=== PATIENT | female | born 1955 | race Caucasian/White ===

== ENCOUNTER 2019-11-23 05:03 | Observation (INO) ==
--- NOTE | 2019-10-26 10:28 | PAT Medication Instructions ---
Medication Instructions Date of Service October 26, 2019 Home Medications amitriptyline 20 mg PO HS aspirin 81 mg PO QAM atorvastatin 80 mg PO PM calcium-vitamin D3-vitamin K [Viactiv] 2 tab PO DAILY cholecalciferol (vitamin D3) 25 mcg PO DAILY cyanocobalamin (vitamin B-12) 2,500 mcg PO DAILY cyclobenzaprine 10 mg PO TID PRN duloxetine [Cymbalta] 60 mg PO HS iron 28 mg PO DAILY meloxicam 7.5 mg PO DAILY methadone 10 mg PO TID multivitamin 1 tab PO DAILY omega 0-vha-jkz-fish oil [Fish Oil] 1 cap PO DAILY sumatriptan succinate 100 mg PO UD PRN tramadol 50 mg PO TID PRN ASK your surgeon for instructions meloxicam 7.5 mg PO DAILY STOP taking 2 weeks before surgery omega 9-itg-bhg-fish oil [Fish Oil] 1 cap PO DAILY DO NOT take the morning of surgery calcium-vitamin D3-vitamin K [Viactiv] 2 tab PO DAILY cholecalciferol (vitamin D3) 25 mcg PO DAILY cyanocobalamin (vitamin B-12) 2,500 mcg PO DAILY cyclobenzaprine 10 mg PO TID PRN iron 28 mg PO DAILY multivitamin 1 tab PO DAILY Take morning of surgery With a small sip of water, OTHERWISE NOTHING TO EAT OR DRINK AFTER MIDNIGHT: aspirin 81 mg PO QAM methadone 10 mg PO TID sumatriptan succinate 100 mg PO UD PRN (if needed) tramadol 50 mg PO TID PRN (if needed, may be taken up to four hours before surgery) Take evening before surgery amitriptyline 20 mg PO HS atorvastatin 80 mg PO PM cyclobenzaprine 10 mg PO TID PRN (if needed) duloxetine [Cymbalta] 60 mg PO HS methadone 10 mg PO TID sumatriptan succinate 100 mg PO UD PRN (if needed) tramadol 50 mg PO TID PRN (if needed) Other Notes If you have any questions please call us at [phone] or [phone] or [phone] or [phone]
--- NOTE | 2019-10-27 16:11 | Anesthesiology Consultation ---
Date of Service October 27, 2019 Assessment & Plan (1) Encounter for pre-operative examination: CBC AM DOS. Pt has h/o thrombocytopenia. COVID Status: As of 10/24 nurse assessment, patient denies travel to endemic area, known exposure/sick contacts, or symptoms of COVID19. Preoperative COVID19 testing completed to be completed prior to surgery. Chart Review Chart Review: Acceptable Risk for Surgery (pending surgeon-ordered PCP clearance) and Patient seen in Pre Admission Testing Teaching & Discussion Instructed NPO after midnight before surgery, except medications with 15 cc of water. Medication instructions provided according to the PAT guidelines. History Surgery Operation Date: 11/23/19 07:00 Proposed Procedures p Left Total Knee Arthroplasty - Lew Helms MD Height/Weight Height: 5 ft 5 in Weight: 96 kg Allergies Allergy/AdvReac Type Severity Reaction Status Date / Time latex AdvReac Mild REDNESS Verified 04/28/11 21:16 AND MILD ITCHING Medications Home Medications Medication Instructions Recorded Confirmed Last Taken amitriptyline 20 mg PO HS 10/25/19 10/25/19 Unknown aspirin 81 mg PO QAM 10/25/19 10/25/19 Unknown atorvastatin 80 mg PO PM 10/25/19 10/25/19 Unknown calcium-vitamin D3-vitamin K 2 tab PO DAILY 10/25/19 10/25/19 Unknown [Viactiv] cholecalciferol (vitamin D3) 25 mcg PO DAILY 10/25/19 10/25/19 Unknown [Vitamin D3] cyanocobalamin (vitamin B-12) 2,500 mcg PO DAILY 10/25/19 10/25/19 Unknown cyclobenzaprine 10 mg PO TID PRN 10/25/19 10/25/19 Unknown duloxetine [Cymbalta] 60 mg PO HS 10/25/19 10/25/19 Unknown iron 28 mg PO DAILY 10/25/19 10/25/19 Unknown meloxicam 7.5 mg PO DAILY 10/25/19 10/25/19 Unknown methadone 10 mg PO TID 10/25/19 10/25/19 Unknown multivitamin 1 tab PO DAILY 10/25/19 10/25/19 Unknown omega 1-sus-wtt-fish oil [Fish Oil] 1 cap PO DAILY 10/25/19 10/25/19 Unknown sumatriptan succinate 100 mg PO UD PRN 10/25/19 10/25/19 Unknown tramadol 50 mg PO TID PRN 10/25/19 10/25/19 Unknown Past Medical History Medical History (Updated 10/28/19 @ 08:49 by Margarito Andrade) Anemia Chronic, per review of [facility] records baseline ~10.8 Anxiety MILD Cardiac murmur Remote h/o echo, was told not of concern. Very soft I/ systolic on exam, asymptomatic. Chronic back pain Depression Leukopenia Per review of [facility] records, chronic issue dating back to 1996, has been in the 2's since 2010. Migraine Exercise / Class Metabolic Activity II 4-5 Yardwork/Stairs/Walk up hill (SOB with 2 flights of stairs, OK with 1. Denies any chest pain.) Past Surgical History Surgical History Fusion of spine LUMBAR History of ankle surgery RIGHT History of cataract surgery RIGHT History of section X2 History of cholecystectomy History of colonoscopy History of tooth extraction ALL OF TEETH REMOVED History of total hip arthroplasty RIGHT/LEFT Hx of gastric bypass ABOUT 12 YEARS AGO Past Anesthesia History No Hx of Anesthesia Complications and No Family Hx of Anesthesia Complications History of PONV No Hx of PONV and No Hx of Motion Sickness Social History Smoking Status: Former smoker Do You Dip or Chew Tobacco: No Smoking End Date: 1981 Hx Alcohol Use: Yes Alcohol type: wine alcohol intake frequency: holidays/special occasions only Hx Substance Use: No Review of Systems Pt denies any recent chest pain, shortness of breath, palpitations, cough, fever or URI. Physical Exam Vital Signs BP: 122/83 P: 75bpm SPO2: 98% RA T: 98.5 F R: 16 Constitutional + obese ENMT Mouth: + dentures and + edentulous Thyromental Distance: > or= 3.5 Finger Breadths (4) Mallampati Class: II Neck normal visual inspection; neck extension not limited Respiratory normal respiratory effort Auscultation: lungs clear to auscultation bilaterally Cardiovascular Rate/Rhythm: regular rate and regular rhythm Heart Sounds: + murmur (I/ systolic murmur RSB) Extremities: no edema Testing Laboratory Results 10/27/19 16:20 10/27/19 16:20 PT 10.5 Seconds (9.0-12.0) 10/27/19 16:20 INR 1.0 (0.9-1.1) 10/27/19 16:20 APTT 26.4 Seconds (21.0-31.0) 10/27/19 16:20 Urine Color Dark Yellow 10/27/19 Unknown Urine Appearance Clear (Clear) 10/27/19 Unknown Urine pH 5.0 (4.5-7.5) 10/27/19 Unknown Ur Specific [place] 1.024 (1.000-1.030) 10/27/19 Unknown Urine Protein Negative (Negative) 10/27/19 Unknown Urine Glucose (UA) Negative (Negative) 10/27/19 Unknown Urine Ketones Trace (Negative) H 10/27/19 Unknown Urine Nitrite Negative (Negative) 10/27/19 Unknown Ur Leukocyte Esterase 1+ (Negative) H 10/27/19 Unknown Urine WBC (Auto) 10-30 /hpf (0-5) H 10/27/19 Unknown Urine RBC (Auto) 10-30 /hpf (0-4) H 10/27/19 Unknown U Hyaline Cast (Auto) 1-5 /lpf (0-5) 10/27/19 Unknown U Epithel Cells (Auto) 0-5 /lpf (0-5) 10/27/19 Unknown Urine Bacteria (Auto) 2+ (Negative) H 10/27/19 Unknown Blood Type A Positive 10/27/19 16:20 Antibody Screen NEGATIVE 10/27/19 16:20 *Pancytopenia chronic, stable per review of [facility] records. Surgeon's office notified of low values, and of + UA. Electrocardiogram Date: 10/27/19 Findings: + NSR @ (76bpm) Compared to EKG from 2010, NSTWA no longer evident in anterior leads. Chest X-Ray Date: 10/27/19 FINDINGS: The bones soft tissues and hemidiaphragms are normal. The cardiomediastinal silhouette is normal. The lungs are clear. The pulmonary vasculature is normal. Calcified granuloma right midlung considered benign. Diaphragms are smooth. IMPRESSION: Chronic change. No acute process.
[2019-10-27 16:53] LABS: Appearance Urine Clear (Clear); Bacteria Urine Automated 2+ (Negative); Bilirubin Urine Negative (Negative); Blood Urine 1+ (Negative); Color Urine Dark Yellow; Epithelial Cell Urine Auto 0-5 /lpf (0-5); Glucose Urine UA Negative (Negative); Ketones Urine Trace (Negative); Leukocyte Esterase Urine 1+ (Negative); Nitrite Urine Negative (Negative); Protein Urine Negative (Negative); Specific Gravity Urine 1.024 (1.000-1.030); Urobilinogen Urine Negative (Negative)
[2019-10-27 16:53] LABS: Basophils # (auto) 0.01 K/uL (0-0.2); Basophils % (auto) 0.4 %; Eosinophils % (auto) 3.9 %; Hematocrit (blood only) 34.9 % (37-47); Hemoglobin 10.9 g/dL (12.0-16.0); Lymphocytes # (auto) 0.91 K/uL (1.2-3.4); Lymphocytes % (auto) 35.1 %; Mean Corpuscular Hemoglobin 28.2 pg (25-34); Mean Corpuscular Hgb Conc 31.2 g/dL (32-36); Mean Corpuscular Volume 90.4 fL (80-100); Mean Platelet Volume 11.9 fL (7.4-10.4); Monocytes # (auto) 0.17 K/uL (0.11-0.59); Monocytes % (auto) 6.6 %; Platelet Count 129 K/uL (130-400); RDW Standard Deviation 42.8 fL (36.4-46.3); Red Blood Count 3.86 M/uL (4.2-5.4); White Blood Count 2.59 K/uL (4.8-10.8)
[2019-10-27 17:05] LABS: Partial Thromboplastin Ratio 0.9; Partial Thromboplastin Time 26.4 Seconds (21.0-31.0); Prothrombin Time 10.5 Seconds (9.0-12.0)
--- NOTE | 2019-10-27 17:17 | XRay Report ---
XR chest Pre-admission PA/Lat CLINICAL HISTORY: pat preoperative COMPARISON STUDY: No previous studies for comparison. FINDINGS: The bones soft tissues and hemidiaphragms are normal. The cardiomediastinal silhouette is n ormal. The lungs are clear. The pulmonary vasculature is normal. Calcified granuloma right midlung co nsidered benign. Diaphragms are smooth. IMPRESSION: Chronic change. No acute process. ACT 112: Negative or not required by law. The above report was generated using voice recognition software. It may contain grammatical, syntax or spelling errors. Electronically signed by: Romeo Courtney M.D. 10/27/2019 5:15 PM
--- NOTE | 2019-10-27 17:18 | Electrocardiogram Report ---
Test Reason : Blood Pressure : / mmHG Vent. Rate : 076 BPM Atrial Rate : 076 BPM P-R Int : 156 ms QRS Dur : 110 ms QT Int : 414 ms P-R-T Axes : 063 000 021 degrees QTc Int : 465 ms Normal sinus rhythm Normal ECG When compared with ECG of 28-APR-2011 23:39, Nonspecific T wave abnormality no longer evident in Anterior leads Confirmed by Marcos Laura ([id number]) on 10/27/2019 5:17:57 PM Referred By: Lew Helms Confirmed By:Negrito Laura
[2019-10-27 18:36] LABS: BUN Creatinine Ratio 13.3 (10-20); Calcium 8.9 mg/dl (8.5-10.1); Creatinine Clr Calc Pharmacy 98.7 ml/min; Est GFR (African American) 108.2; Est GFR (Non-African American) 93.4; Potassium 3.8 mmol/L (3.5-5.1)
--- NOTE | 2019-10-31 07:28 | History & Physical Report ---
Date of Service October 31, 2019 Assessment & Plan (1) Left knee DJD: Postoperative prescriptions for Percocet and Coumadin will be provided at discharge from the hospital. Anticipate discharge to home with home health services. Preoperative lab work, EKG, and chest x-ray have been ordered. Medical clearance has been requested from her PCP, Dr. Salazar. She already has access to a cane and walker. Patient is aware of the surgical risks associated with COVID-19. She is currently asymptomatic of any COVID-19 symptoms. She will undergo nasal swab testing for COVID-19 prior to surgery and her results will be made available to her prior to the procedure. History of Present Illness Chief Complaint: Left knee pain Primary Care Provider: Francisco Salazar MD This 64-year-old white female is scheduled to undergo a left knee total knee arthroplasty on 11/23/2019. The patient has had a greater than 6-year history of left knee pain. It has become worse with time. She thinks it initially started after falling from a height of about 4 steps onto [address]. She has noticed gradually increasing valgus deformity of her knee. She has tried conservative care measures, including cortisone injections, activity modification, and oral pain medication, without lasting improvement. She now elects to proceed with total knee surgery in hopes of alleviating her pain. Pain is worse with weightbearing. It does affect her ADLs. No numbness or tingling. She does have night pain. No recent effusions. Preoperative imaging has been obtained. Allergies Allergy/AdvReac Type Severity Reaction Status Date / Time latex AdvReac Mild REDNESS Verified 04/28/11 21:16 AND MILD ITCHING Home Medications Home Medications Medication Instructions Recorded Confirmed Type amitriptyline 20 mg PO HS 10/25/19 10/25/19 History aspirin 81 mg PO QAM 10/25/19 10/25/19 History atorvastatin 80 mg PO PM 10/25/19 10/25/19 History calcium-vitamin D3-vitamin K 2 tab PO DAILY 10/25/19 10/25/19 History [Viactiv] cholecalciferol (vitamin D3) 25 mcg PO DAILY 10/25/19 10/25/19 History [Vitamin D3] cyanocobalamin (vitamin B-12) 2,500 mcg PO DAILY 10/25/19 10/25/19 History cyclobenzaprine 10 mg PO TID PRN 10/25/19 10/25/19 History duloxetine [Cymbalta] 60 mg PO HS 10/25/19 10/25/19 History iron 28 mg PO DAILY 10/25/19 10/25/19 History meloxicam 7.5 mg PO DAILY 10/25/19 10/25/19 History methadone 10 mg PO TID 10/25/19 10/25/19 History multivitamin 1 tab PO DAILY 10/25/19 10/25/19 History omega 4-vrg-xbm-fish oil [Fish Oil] 1 cap PO DAILY 10/25/19 10/25/19 History sumatriptan succinate 100 mg PO UD PRN 10/25/19 10/25/19 History tramadol 50 mg PO TID PRN 10/25/19 10/25/19 History Past Med/Surg History Medical History Anemia Chronic, per review of [facility] records baseline ~10.8 Anxiety MILD Cardiac murmur Remote h/o echo, was told not of concern. Very soft I/ systolic on exam, asymptomatic. Chronic back pain Depression Leukopenia Per review of [facility] records, chronic issue dating back to 1996, has been in the 2's since 2010. Migraine Surgical History Fusion of spine LUMBAR History of ankle surgery RIGHT History of cataract surgery RIGHT History of section X2 History of cholecystectomy History of colonoscopy History of tooth extraction ALL OF TEETH REMOVED History of total hip arthroplasty RIGHT/LEFT Hx of gastric bypass ABOUT 12 YEARS AGO Social History (Updated 10/31/19 @ 07:26 by Anshul Ni PA-C) Preferred Language: Indonesian Visual Impairment: No Limitations Hearing Ability: Normal Photogrammetric Tech Required: No Beliefs That Will Affect Care: None marital status: Current Living Situation: Alone Feels Safe at Home: Yes Smoking Status: Former smoker Second Hand Exposure: No ; Hx Alcohol Use: Yes Alcohol type: wine Hx Substance Use: No Review of Systems Review of Systems: All systems reviewed & are unremarkable except as noted in HPI & below Physical Exam Physical Exam: Vitals: Height 161 cm, weight 95.9 kg, BMI 36.8, temperature 36.0 oral, BP 140/78, pulse 88, O2 sat 94% on room air. General: Well- developed, well-nourished middle-aged white female in no acute distress. Sitting in a chair, alert and oriented. Skin: Warm and dry with fair turgor. No rashes or lesions. No ecchymosis or erythema. HEENT: Normocephalic, atraumatic. Eyes: PERRLA, EOMI. Nares and oropharynx exams deferred due to COVID precautions. Heart: RRR, no MGR. Lungs: Clear to auscultation bilaterally, no crackles, rhonchi or wheezing, good air movement. Abdomen: Obese, bowel sounds present x4, soft, nontender. No organomegaly. No masses. Musculoskeletal: Left knee evaluation reveals no significant intraarticular effusion. No redness or warmth. She has focal discomfort with palpation over the medial and lateral joint lines, worse laterally. She has intact patellar and quadriceps tendons. She lacks about 5 degrees of terminal extension. Flexion to around 100 degrees. Strength is 5/5 with fair quad tone. She does have crepitus palpable with motion. Stable collateral ligaments. Ambulates with a significantly antalgic gait using her cane. Valgus alignment. Neurologic: Gross sensation is intact across both lower extremities by soft touch. Peripheral pulses are 2+. Results & Data Results & Data ([facility]) Diagnostic Findings Radiographic imaging previously obtained shows endstage DJD of the left knee with severe disease in the lateral compartment. Periarticular osteophytes, subchondral sclerosis, and joint space narrowing are all present.
[2019-11-23] MEDS ORDERED: CEFAZOLIN 2000MG 2,000 MG/15 ML SYR IV SCH (06:00)
[2019-11-23] MEDS ORDERED: LR 500ML BOLUS, THEN 15ML/HR IV SCH (06:00)
[2019-11-23] MEDS ORDERED: TRANEXAMIC ACID 1,000 MG **IV Pre-op IV SCH (06:00)
[2019-11-23] MEDS ORDERED: LR 60ML/HR IV SCH (06:00)
[2019-11-23] MEDS ORDERED: ROPIVACAINE 0.5% HCL/PF 150 MG, BUPIVACAINE 0.5% MPF 30 ML, EPINEPHrine 0.15 MG, Ketoro... INFIL SCH (06:00)
[2019-11-23] MEDS ORDERED: DEXAMETHASONE SOD INJ 4 MG/ML VIAL ONE (06:20)
[2019-11-23] MEDS ORDERED: BUPIVACAINE 0.5 % 5 MG/1 ML PF 10ML VIAL ONE (06:20)
[2019-11-23] MEDS ORDERED: BUPIVACAINE/EPINEPHRINE 0.25% 1:200,000 30 ML VIAL ONE (06:20)
--- NOTE | 2019-11-23 06:24 | History & Physical Bridge Note ---
Date of Service November 23, 2019 History & Physical Bridge Note I have examined the patient, reviewed the History & Physical and in the interval since the performance of the History & Physical I have noted the following changes of clinical significance: consent obtained/site verified/covid screen negative.no changes noted
[2019-11-23] MEDS ORDERED: ORTHO JOINT ANESTHETIC ONE (06:29)
[2019-11-23] MEDS ORDERED: PROPOFOL IV EMULSION 10 MG/ML 20 ML VIAL IV ONE (06:38)
[2019-11-23] MEDS ORDERED: LIDOCAINE HCL 2% 2 ML VIAL/AMP(20MG/ML) INFIL ONE (06:38)
[2019-11-23] MEDS ORDERED: MIDAZOLAM HCL 1 MG/ML 2ML VIAL ONE (06:39)
[2019-11-23] MEDS ORDERED: fentaNYL citrate 100 MCG/2 ML VIAL ONE (06:39)
[2019-11-23] MEDS ORDERED: KETAMINE HCL INJ 50 MG/ML 10 ML VIAL ONE (06:40)
[2019-11-23 06:49] LABS: Hemoglobin 10.9 g/dL (12.0-16.0); Mean Corpuscular Hemoglobin 29.1 pg (25-34); Mean Corpuscular Volume 88.2 fL (80-100); Mean Platelet Volume 11.7 fL (7.4-10.4); Platelet Count 128 K/uL (130-400); RDW Coefficient of Variation 13.2 % (11.5-14.5); RDW Standard Deviation 42.4 fL (36.4-46.3); Red Blood Count 3.74 M/uL (4.2-5.4); White Blood Count 3.48 K/uL (4.8-10.8)
[2019-11-23] MEDS ORDERED: fentaNYL citrate 100 MCG/2 ML VIAL IV PRN (07:12)
[2019-11-23] MEDS ORDERED: ePHEDrine sulfate 50 MG/ML AMP IV PRN (07:12)
[2019-11-23] MEDS ORDERED: ATROPINE SULFATE 0.1 MG/ML 10ML SYR IV PRN (07:12)
[2019-11-23] MEDS ORDERED: ONDANSETRON INJ 2 MG/ML 2 ML VIAL IV PRN ×2 (07:12→09:57)
--- NOTE | 2019-11-23 08:41 | Operative Report ---
Post Operative Report Pre & Post Diagnosis Operation Date: 11/23/19 07:00 Pre-Op Diagnosis: Left Knee Degenerative Joint Disease Post-Op Diagnosis: Left Knee Degenerative Joint Disease I identified the patient and participated in the time-out.: Yes Procedure Operation Date: 11/23/19 07:00 Actual Procedures p Left Total Knee Arthroplasty, Cemented(Left) - Lew Helms MD Surgeon SANAM Helms MD Screw Machine Tool Setter marium GONZALEZ Estimated Blood Loss 75 Findings Consistent with Post-Op Diagnosis Specimens see operative report Drains none Complications none Disposition Accompanied Patient To Recovery: Yes Disposition: Recovery Room Indications This 64-year-old white female presented to the office with complaints of persisting left knee pain. She had tried conservative care measures including activity modification and oral pain medication without improvement. She elected to proceed with surgical intervention after being educated about potential risks and outcomes. Preoperative imaging was obtained. Description of Procedure Patient was administered a spinall anesthetic and then taken to the operating room where she was given sedation. She was prepped and draped in the usual sterile fashion. Please see Dr. Helms's operative report for specifics of the procedure. I was present for the entire case from initial patient positioning through final wound closure. Assistance was provided in tissue retraction, hemostasis, trial implant placement, final implant placement, and final wound closure. Patient was taken to the recovery room in satisfactory condition. I attest to the content of the Intraoperative Record and any orders documented therein. Any exceptions are noted below.
[2019-11-23] MEDS ORDERED: VANCOMYCIN HCL 1,500 MG in SODIUM CHLORIDE 0.9% 500 ML IV SCH (08:48)
--- NOTE | 2019-11-23 08:57 | Anesthesiology Progress Note ---
Date of Service November 23, 2019 Anesthesia Post Procedure Vital Signs Vital Signs: Temp Pulse Pulse Resp BP Pulse Ox 11/23/19 08:45 86 12 143/76 H 100 11/23/19 08:37 36.1 C L 89 13 146/77 H 100 11/23/19 05:25 36.7 C 81 20 144/82 H 95 Pain Intensity Left Knee: Pain Intensity: 6 Transfer of Care Handoff Completed per policy Notes Mental Status: alert / awake / arousable Patient Amnestic to Procedure: Yes Nausea / Vomiting: adequately controlled Pain: adequately controlled Airway Patency, RR, SpO2: stable & adequate BP & HR: stable & adequate Hydration State: stable & adequate Neuraxial Anesthesia: was administered and sensory block is resolving Anesthetic Complications: no major complications apparent
--- NOTE | 2019-11-23 09:01 | XRay Report ---
XR knee LT 1 or 2V routine CLINICAL HISTORY: Degenerative arthritis. Postsurgical study. COMPARISON: May 2019 DISCUSSION: There are postsurgical changes of a total left knee arthroplasty and patellar resurfacing . The femoral tibial components appear well seated. There are overlying skin erick present. Air wit hin the soft tissues is consistent with recent surgery. IMPRESSION: Postsurgical changes of a total left knee arthroplasty. ACT 112: Negative or not required by law. Electronically signed by: Eros Martínez M.D. 11/23/2019 9:00 AM
--- NOTE | 2019-11-23 09:11 | Operative Report (OR) ---
DATE OF OPERATION: 11/23/2019 SURGEON: Lew Helms MD. [employer] ARCHITECT: Anshul Ni PA-C. No resident or fellow available. 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 OPERATION PERFORMED: Cemented left total knee replacement. PERIOPERATIVE SITUATION: Medically cleared female with intractable knee pain, has had multiple joint replacements. At this point in time, she had a COVID test in October for a colonoscopy which was negative. She has had no symptoms. She has been socially response to proceed with surgery. DESCRIPTION OF PROCEDURE: The patient appropriately identified, site verified, consent verified. Antibiotics confirmed as being given. Left lower extremity was prepped and draped in usual routine fashion. Midline exposure was utilized. She had a 5-degree flexion contracture and valgus deformity. Midline exposure utilized. Blunt dissection carried down to the fascia. This was then incised under direct vision, arthrotomy performed. Synovectomy completed, osteophytes resected. Cruciates resected, tibia subluxated, menisci resected. Distal femur resected 4 mm. Proximal tibia resected. Distal femur resected 12 mm, proximal tibia resected 4 mm, extension gap was excellent. Femur was sized anywhere between a 4-1/2 to 2-1/2. She was measured 4 cut 3. There was no notching. The flexion gap was checked. It was good. Posterior capsule was then injected. The box cut was then made. Distal femur fit well. The tibia was then broached and reamed for size 2.5, size 3 spacer placed 10 mm thick posterior cruciate substituting, it was stable in all planes including mid range flexion. Good extension obtained, good flexion obtained. The patella tracked slightly laterally. Internal release made that track extremely well. The patella was resected leaving 15 mm. A 38 button trial holes were then seated and the button seated and tracked well. The knee was then injected with the Orthomix. All implants removed that were trials. Area irrigated with Betadine Pulsavac and then the permanent implants cemented in position; tibia, femur and patella in that order. After 12 minutes, the tourniquet deflated. Minor bleeding points controlled with electrocautery. EBL 75 mL The wound was then irrigated with Betadine Pulsavac. The trial spacer removed. Trial of the permanent liner seated. The knee reduced and closed at 40 degrees of flexion using 2-0 Vicryl and stainless steel clips. Appropriate dressing applied. The patient transferred to recovery room in satisfactory condition having tolerated the procedure well. ESTIMATED BLOOD LOSS: 75 mL CRYSTALLOID: Per anesthesia. BONE PATHOLOGY: Pending. SUMMARY OF IMPLANTS: Size 3 left posterior cruciate substituting femur, 2.5 mobile bearing tray, size 38 patella, 3 x 10 mm insert posterior cruciate substituting. The PA was present during the entire case and presence was medically necessary based on the fact we needed appropriate retraction, appropriate instrumentation held and she needed to be present for the entire case including closure. I attest to the content of the Intraoperative Record and any orders documented therein. Any exception s are noted below.
[2019-11-23] MEDS ORDERED: METOCLOPRAMIDE HCL INJ 5 MG/ML 2 ML VIAL IV PRN (09:57)
[2019-11-23] MEDS ORDERED: DiphenhydrAMINE HCL 50 MG/ML VIAL IV PRN (09:57)
[2019-11-23] MEDS ORDERED: bisacodyL 10 MG SUPP PR PRN (09:57)
[2019-11-23] MEDS ORDERED: SODIUM CHLORIDE 0.9% 1000ML 1,000 ML IV SCH (09:57)
[2019-11-23] MEDS ORDERED: NALOXONE HCL 0.4 MG/1 ML VIAL/CARP IV PRN (09:57)
[2019-11-23] MEDS ORDERED: MAGNESIUM HYDROXIDE SUSP 30 ML UDC PO PRN (09:57)
[2019-11-23] MEDS ORDERED: CYCLOBENZAPRINE HCL 10 MG TAB PO PRN (09:57)
[2019-11-23] MEDS ORDERED: HYDROmorphone INJ 0.5 MG/0.5 ML SYR IV PRN (09:57)
[2019-11-23] MEDS ORDERED: ALUMINUM/MAGNESIUM SUSP 30 ML UDC PO PRN (09:57)
[2019-11-23] MEDS ORDERED: SUMAtriptan succinate 100 MG TAB PO PRN (09:57)
[2019-11-23] MEDS: METHADONE HCL 10 MG TAB PO SCH ×3 (11:18→22:29)
[2019-11-23] MEDS: ORTHO WARFARIN NOMOGRAM SCH (11:26)
[2019-11-23] MEDS: DOCUSATE SODIUM 100 MG CAP PO SCH ×2 (11:54→22:16)
[2019-11-23] MEDS: KETOROLAC 30 MG/ML VIAL IV SCH ×3 (11:55→23:42)
[2019-11-23] MEDS: MULTIVITAMIN TAB PO SCH (11:55)
[2019-11-23] MEDS: CEFAZOLIN 2000MG 2,000 MG/15 ML SYR IV SCH ×2 (13:14→22:30)
[2019-11-23] MEDS: ACETAMINOPHEN 500 MG TAB PO SCH ×2 (13:31→22:18)
--- NOTE | 2019-11-23 13:50 | Progress Notes ---
DATE: 11/23/2019 SUBJECTIVE: Status post left total knee replacement. The patient is doing well, has no major issues. She denies any chest pain, shortness of breath, fever, chills, nausea, vomiting or headache. OBJECTIVE: Vital signs are stable. She is afebrile. Postop x-rays look excellent. Wound dressing clean, dry and intact. Calf is nontender. Neurovascular check of femoral sciatic nerve is normal. Can do a straight leg raise. Can do ankle pumps. ASSESSMENT: Doing well. Plan is to mobilize. Hep-Lock IV fluid and prepare for discharge tomorrow.
--- NOTE | 2019-11-23 13:53 | Discharge Summary (DS) ---
Date of discharge 11/24/2019 pending good course overnight. CHIEF COMPLAINT: Left knee pain. HISTORY OF PRESENT ILLNESS: Underwent elective left total knee replacement. She has no major issues. She notes no chest pain, shortness of breath, fever, chills, nausea, vomiting or headache. She is ambulatory. She is voiding, eating, drinking. No issues. HOME MEDICATIONS: Extensive, please see medication reconciliation list. PAST SURGICAL HISTORY: Remarkable for anemia, anxiety, cardiac murmur, back pain, chronic depression, leukopenia, migraine. PAST SURGICAL HISTORY: Remarkable for lumbar surgery, ankle surgery, cataract surgery, C-sections, cholecystectomy, colonoscopies, bilateral hip replacements, gastric bypass. SOCIAL HISTORY: Marital status reveals that she is , has friends, feels safe at home. Former smoker. No secondhand smoke exposure at this point. Occasional wine. REVIEW OF SYSTEMS: Reveals no findings. Postop x-rays look excellent. ASSESSMENT: Doing well status post left total knee replacement. Plan is for discharge tomorrow if she does well overnight. Home services.
[2019-11-23] MEDS ORDERED: TRANEXAMIC ACID / 0.7% NACL 1,000 MG/100 ML BAG IV SCH (14:46)
[2019-11-23] MEDS ORDERED: WARFARIN SOD 5 MG TAB PO ONE (16:00)
[2019-11-23] MEDS: ASCORBIC ACID 500 MG TAB PO SCH (17:02)
[2019-11-23] MEDS: FERROUS GLUCONATE 324 MG TAB PO SCH (17:02)
[2019-11-23] MEDS ORDERED: SENNA 8.6 MG TAB PO SCH (21:00)
[2019-11-23] MEDS ORDERED: AMITRIPTYLINE HCL 10 MG TAB PO SCH (21:00)
[2019-11-23] MEDS ORDERED: ATORVASTATIN 40 MG TAB PO SCH (21:00)
[2019-11-23] MEDS ORDERED: DULOXETINE HCL 60 MG CAP PO SCH (21:00)
[2019-11-24] MEDS: OXYCODONE HCL IR 5 MG TAB (IMMEDIATE RELEASE) PO PRN ×2 (03:46→07:44)
[2019-11-24] MEDS: ACETAMINOPHEN 500 MG TAB PO SCH ×2 (05:53→12:59)
[2019-11-24] MEDS: KETOROLAC 30 MG/ML VIAL IV SCH (05:54)
[2019-11-24 06:45] LABS: Hematocrit (blood only) 28.4 % (37-47); Hemoglobin 9.4 g/dL (12.0-16.0); Mean Corpuscular Hemoglobin 29.2 pg (25-34); Mean Corpuscular Hgb Conc 33.1 g/dL (32-36); Mean Corpuscular Volume 88.2 fL (80-100); Mean Platelet Volume 11.6 fL (7.4-10.4); Platelet Count 119 K/uL (130-400); RDW Coefficient of Variation 13.1 % (11.5-14.5); RDW Standard Deviation 42.6 fL (36.4-46.3); Red Blood Count 3.22 M/uL (4.2-5.4); White Blood Count 6.37 K/uL (4.8-10.8)
[2019-11-24 06:54] LABS: INR 1.1 (0.9-1.1); Prothrombin Time 11.9 Seconds (9.0-12.0)
[2019-11-24 07:12] LABS: BUN Creatinine Ratio 21.7 (10-20); Calcium 8.7 mg/dl (8.5-10.1); Creatinine Clr Calc Pharmacy 92.6 ml/min; Est GFR (African American) 106.1; Est GFR (Non-African American) 91.6; Potassium 4.2 mmol/L (3.5-5.1)
--- NOTE | 2019-11-24 07:32 | Progress Notes ---
DATE: 11/24/2019 SUBJECTIVE: Postop day #1 status post left total knee replacement. The patient is doing well, has no issues. She denies any chest pain, shortness of breath, fever, chills, nausea, vomiting or headache. OBJECTIVE: Vital signs are stable. She is afebrile. Neurovascular check, femoral sciatic nerve is normal. Can do a straight leg raise. Ankle pumps are strong. She is ambulatory. She is voiding. She has had a bowel movement. Wound dressing clean, dry, and intact. A.m. labs are pending. ASSESSMENT AND PLAN: Doing well status post left total knee replacement. Discharged home today. Coumadin dose per nomogram.
[2019-11-24] MEDS ORDERED: dexAMETHasone 10 MG in SYRINGE 0 ML IV SCH (08:00)
--- NOTE | 2019-11-24 08:28 | Orthopedic Progress Note ---
Date of Service November 24, 2019 Assessment & Plan (1) Status post total left knee replacement: Left knee dressing changed today by me. She will leave this in place until at least Thursday. Continue with ROBBY hose daily for the next 6 weeks. Coumadin today per nomogram. Continue with Coumadin 4 mg daily for Thursday, Thursday, and Thursday, and have her blood rechecked on Thursday by home health. Follow-up in the office in 2 weeks for staple removal as scheduled Continue using the walker for ambulation Prescriptions for Coumadin and Percocet have been sent to her pharmacy. Admission and Anticipated Discharge Date Admission Date: November 23, 2019 Subjective Patient is seen in her room this morning. She denies any complaints at this point. No chest pain, shortness of breath, nausea, vomiting, or abdominal pain. She has minimal knee pain. She states she feels really good and is ready to go home. She has been out of bed. She has urinated and moved her bowels. Review of Systems Review of Systems: Unchanged from yesterday. Physical Exam Physical Exam: General: Well-developed, well-nourished, middle-aged white female, in no acute distress. Sitting on the side of the bed. Alert and oriented. Ready for breakfast. Postop dressing is in place. Skin: Warm dry with good turgor. No rashes. Upon removal of her postop dressing, erick are intact. Wound edges are well approximated. No erythema or warmth. Expected postoperative ecchymosis. Minimal edema. No active drainage. There is scant dried blood on her dressings. Musculoskeletal: Patient has full terminal extension. She is able to perform a straight leg raise. Flexion to around 60 degrees easily. Intact motor function of the ankle and toes. Neuro: Gross sensation is intact across the left lower extremity by soft touch. Peripheral pulses are 2+. Results & Data ([facility]) Vital Signs (Past 12 Hours) Vital Signs Temp Pulse Pulse Resp BP BP Pulse Ox 11/24/19 07:28 36.7 C 72 16 117/72 98 11/24/19 04:03 36.3 C L 80 16 102/64 98 11/23/19 23:40 36.8 C 74 20 113/72 92 Laboratory Results H&H today are 9.4 and 28.4. INR is 1.1. Chemistry panel renal panel is unremarkable. BSG's peaked at 201 overnight and is currently 128.
--- NOTE | 2019-11-24 08:31 | Anesthesiology Progress Note ---
Date of Service November 24, 2019 Anesthesia Post Procedure Vital Signs Vital Signs: Temp Pulse Pulse Resp BP BP Pulse Ox 11/24/19 07:28 36.7 C 72 16 117/72 98 11/24/19 04:03 36.3 C L 80 16 102/64 98 11/23/19 23:40 36.8 C 74 20 113/72 92 11/23/19 19:04 36.9 C 86 16 121/79 90 11/23/19 15:19 36.6 C 79 16 146/84 H 95 11/23/19 13:12 36.8 C 88 18 133/88 98 11/23/19 11:55 82 14 136/82 99 11/23/19 10:07 81 16 113/68 98 11/23/19 09:40 36.5 C 84 12 119/72 99 11/23/19 09:25 36.7 C 85 19 120/76 95 11/23/19 09:15 84 13 131/77 95 11/23/19 09:05 86 11 L 138/77 94 11/23/19 08:55 85 14 147/75 H 100 11/23/19 08:45 86 12 143/76 H 100 11/23/19 08:37 36.1 C L 89 13 146/77 H 100 Notes Mental Status: alert / awake / arousable Nausea / Vomiting: adequately controlled Pain: adequately controlled Airway Patency, RR, SpO2: stable & adequate BP & HR: stable & adequate Hydration State: stable & adequate Neuraxial Anesthesia: was administered and sensory block resolved Anesthetic Complications: no major complications apparent and Pt Satisfied with anesthetic care
[2019-11-24] MEDS: DOCUSATE SODIUM 100 MG CAP PO SCH (08:42)
[2019-11-24] MEDS: MULTIVITAMIN TAB PO SCH (08:42)
[2019-11-24] MEDS: METHADONE HCL 10 MG TAB PO SCH ×2 (08:42→12:58)
[2019-11-24] MEDS: ASCORBIC ACID 500 MG TAB PO SCH (08:42)
[2019-11-24] MEDS: FERROUS GLUCONATE 324 MG TAB PO SCH (08:42)
[2019-11-24] MEDS ORDERED: ASPIRIN 81 MG ECTAB PO SCH (09:00)
[2019-11-24] MEDS: ORTHO WARFARIN NOMOGRAM SCH (12:26)
[2019-11-24] MEDS ORDERED: WARFARIN SOD 5 MG TAB PO ONE (16:00)
== END 2019-11-24 14:21 | disposition home health service (06) ==
LOC: 3E 05:03 → ASU 05:03

== ENCOUNTER 2022-11-02 02:09 | Inpatient (IN) ==
[2022-11-02] MEDS ORDERED: oxyCODONE/ACETAMINOPHEN 5mg/325mg TAB PO STA (02:51)
[2022-11-02] MEDS ORDERED: HYDROmorphone INJ 1 MG/ML SYRINGE IV STA (03:40)
[2022-11-02] MEDS ORDERED: ONDANSETRON INJ 2 MG/ML 2 ML VIAL IV STA (03:40)
[2022-11-02 03:54] LABS: Basophils # (auto) 0.02 K/uL (0-0.2); Basophils % (auto) 0.4 %; Eosinophils # (auto) 0.14 K/uL (0-0.50); Eosinophils % (auto) 2.8 %; Hematocrit (blood only) 36.2 % (37.0-47.0); Hemoglobin 12.1 g/dl (12.0-16.0); Immature Granulocytes # (auto) 0.01 K/uL (0.01-0.20); Immature Granulocytes % (auto) 0.2 %; Lymphocytes # (auto) 1.51 K/uL (1.2-3.4); Lymphocytes % (auto) 30.7 %; Mean Corpuscular Hemoglobin 30.3 pg (25.0-34.0); Mean Corpuscular Hgb Conc 33.4 g/dL (32.0-36.0); Mean Corpuscular Volume 90.7 fL (80.0-100.0); Mean Platelet Volume 12.2 fL (9.4-12.4); Monocytes # (auto) 0.33 K/uL (0.11-0.59); Monocytes % (auto) 6.7 %; Neutrophils # (auto) 2.91 K/uL (1.40-6.50); Neutrophils % (auto) 59.2 %; Platelet Count 129 K/uL (130-400); RDW Coefficient of Variation 12.2 % (11.5-14.5); RDW Standard Deviation 40.2 fL (36.4-46.3); Red Blood Count 3.99 M/uL (4.20-5.40); White Blood Count 4.92 K/ul (4.8-10.8)
[2022-11-02 04:00] LABS: BUN Creatinine Ratio 25.6 (10-20); Calcium 9.4 mg/dl (8.6-10.3); Creatinine Clr Calc Pharmacy 68.4 ml/min; Est GFR (African American) 91.2 ml/min; Est GFR (Non-African American) 78.7 ml/min; Potassium 3.5 mmol/L (3.5-5.1)
--- NOTE | 2022-11-02 04:06 | Emergency Department Note ---
Impression & Plan Femur fracture, left, Fall Admit to the [facility] ED Provider Note NAME: DEBORAH MCINTOSH AGE: 67 SEX: F ARRIVES VIA: Ambulance INFORMANT: Patient ED PROVIDER(S): Chrissy Paredes DO CHIEF COMPLAINT: Fall PLAN: Disposition: Admit to the [facility] Condition: Fair MEDICAL DECISION MAKING: This is a 67-year-old female patient who slipped and fell on a wet floor landing on her left knee. Patient had a previous knee replacement in 2019. Patient had immediate discomfort in the left knee and distal left tib-fib. X-rays here confirm a distal femur fracture just superior to the hardware. Patient was medicated with IV Dilaudid and IV Zofran. Laboratory studies were drawn. Triage Nursing notes reviewed and agree with them. Additional history obtained from her friend who is at the bedside External medical records were reviewed including operative notes from [facility] orthopedics Vital Signs: reviewed and remarkable for hypertension Differential diagnosis: [place] fracture, displaced hardware, dislocation, femur fracture ER treatment provided: Oral Percocet IV Dilaudid IV Zofran Knee immobilizer was applied. Diagnostics interpreted by me: ECG: Normal sinus rhythm at [address] segment elevation or signs of ischemia. There is no ectopy. Cardiac Monitoring: Normal sinus rhythm at 85 Laboratory studies: See below Imaging studies: As per my independent interpretation Knee x-ray: Spiral fracture of the distal femur just proximal to the hardware of the knee Tib-fib x-ray: No obvious fractures identified Operations Intern: Dr. Duke-orthopedics HPI: 67/F arrives for evaluation of fall. Patient states that she slipped and fell in her kitchen on a wet spot on the floor from the refrigerator. She landed with her left knee internally rotated and the left foot and ankle externally rotated. Discussed severe pain in the left knee and some discomfort in the distal tib-fib region of the left lower extremity. EMS was called and she was transported here. PAST MEDICAL HISTORY:See Below PAST SURGICAL HISTORY:See Below FAMILY HISTORY:See Below SOCIAL HISTORY:See Below HOME MEDICATIONS:See list ALLERGIES:See list VITALS:See Below PHYSICAL EXAMINATION: Left lower extremity: Moderate pain to palpation over the left distal fibula as well as the left knee. There is edema surrounding the entire left knee and area of contusion noted over the medial aspect of the knee. There are easily palpable dorsalis pedis posterior tibial pulses. Patient states that her great toe is numb but she has good sensation in all of her toes with good movement in her toes. She has normal capillary refill to the toes. Pelvis: Stable to rock and compression Abdomen: Soft and nontender Upper extremities: No evidence of trauma Back: No obvious trauma ED COURSE:2 Times/Reassessments: Patient was evaluated by the medical student initially. 225: Patient was evaluated in room C6. Patient was given oral dose of Percocet. X-rays were performed. An IV lock was initiated and the patient was given a dose of IV Dilaudid. She then was given a dose of IV Zofran. A knee immobilizer was applied to splint the femur. I discussed the case with Dr. Duke and he recommended admission to the hospitalist and consult orthopedics. I discussed the case with the [facility] Hospitalist and they will evaluate for further management. Chrissy Paredes, Past Med/Surg History Medical History (Updated 11/02/22 @ 07:29 by Grant Oliver MD) Anemia Chronic, per review of [facility] records baseline ~10.8 Anxiety MILD Cardiac murmur Remote h/o echo, was told not of concern. Very soft I/ systolic on exam, asymptomatic. Chronic back pain Depression Leukopenia Per review of [facility] records, chronic issue dating back to 1996, has been in the 2's since 2010. Migraine Surgical History Fusion of spine LUMBAR History of ankle surgery RIGHT History of cataract surgery RIGHT History of section X2 History of cholecystectomy History of colonoscopy History of tooth extraction ALL OF TEETH REMOVED History of total hip arthroplasty RIGHT/LEFT Hx of gastric bypass ABOUT 12 YEARS AGO Social History Smoking Status: Former smoker Tobacco Type: Cigarettes Second Hand Exposure: No; Do You Dip or Chew Tobacco: No; Hx Alcohol Use: Yes Alcohol type: wine Hx Substance Use: No Preferred Language: Slovenian Communication Ability: Effective Visual Impairment: No Limitations Hearing Ability: Normal Director Of Planning Required: No Beliefs That Will Affect Care: None marital status: Current Living Situation: Alone Feels Safe at Home: Yes Assistive Devices: Walker Allergies Allergies Allergy/AdvReac Type Severity Reaction Status Date / Time latex AdvReac Mild REDNESS Verified 11/23/19 05:41 AND MILD ITCHING Home Meds Home Medications Medication Instructions Recorded Confirmed amitriptyline 10 mg tablet 20 mg PO HS 10/25/19 11/02/22 aspirin 81 mg chewable tablet 81 mg PO QAM 10/25/19 11/02/22 atorvastatin 80 mg tablet 80 mg PO PM 10/25/19 11/02/22 calcium 650 mg-vitamin D3 12.5 2 tab PO DAILY 10/25/19 11/02/22 mcg-vitamin K 40 mcg chewable tablet (Viactiv) cholecalciferol (vitamin D3) 25 25 mcg PO DAILY 10/25/19 11/02/22 mcg (1,000 unit) chewable tablet (Vitamin D3) cyanocobalamin (vitamin B-12) 2,500 mcg PO DAILY 10/25/19 11/02/22 2,500 mcg tablet cyclobenzaprine 10 mg tablet 10 mg PO TID PRN Pain 10/25/19 11/02/22 duloxetine 60 mg capsule,delayed 60 mg PO HS 10/25/19 11/02/22 release (Cymbalta) iron 18 mg tablet 28 mg PO DAILY 10/25/19 11/02/22 methadone 10 mg tablet 5 mg PO TID 10/25/19 11/02/22 multivitamin 1 tab PO DAILY 10/25/19 11/02/22 sumatriptan succinate 100 mg tablet 100 mg PO UD PRN MIGRAINES 10/25/19 11/02/22 tramadol 50 mg tablet 50 mg PO TID PRN Pain 10/25/19 11/02/22 Previous Rx's Medication Instructions Recorded oxycodone-acetaminophen 5 mg-325 2 tab PO Q4H PRN pain #24 tabs 11/24/19 mg tablet (Percocet) Results & Data (ED) Vital Signs Vital Signs - 24 hr 11/02/22 02:17 11/02/22 02:33 11/02/22 02:30 Temperature 36.9 C Temperature Source Oral Pulse Rate 77 77 76 Pulse Rate from SpO2 Sensor 75 Respiratory Rate 16 14 Respiratory Effort / Characteristics Non-Labored Spontaneous Respiratory Depth Normal Blood Pressure 167/88 H Blood Pressure Mean 114 Blood Pressure Position Semi-fowlers Pulse Oximetry 96 98 Oxygen Delivery Method Room Air Room Air Oxygen Flow Rate Sepsis Recent Fever Within 48 Hours No Sepsis New/Unexplained Change in Mental Status N/A Sepsis Action Taken by Nursing No Action Required 11/02/22 03:00 11/02/22 03:02 11/02/22 03:02 Temperature Temperature Source Pulse Rate 81 77 Pulse Rate from SpO2 Sensor Respiratory Rate 12 16 Respiratory Effort / Characteristics Respiratory Depth Blood Pressure 161/140 H Blood Pressure Mean 153 Blood Pressure Position Pulse Oximetry Oxygen Delivery Method Oxygen Flow Rate Sepsis Recent Fever Within 48 Hours Sepsis New/Unexplained Change in Mental Status Sepsis Action Taken by Nursing 11/02/22 04:12 11/02/22 04:12 11/02/22 06:26 Temperature Temperature Source Pulse Rate 84 87 Pulse Rate from SpO2 Sensor 84 Respiratory Rate 15 Respiratory Effort / Characteristics Respiratory Depth Blood Pressure 160/91 H Blood Pressure Mean 121 Blood Pressure Position Pulse Oximetry 93 Oxygen Delivery Method Room Air Oxygen Flow Rate Sepsis Recent Fever Within 48 Hours Sepsis New/Unexplained Change in Mental Status Sepsis Action Taken by Nursing 11/02/22 04:32 11/02/22 04:32 11/02/22 05:00 Temperature Temperature Source Pulse Rate 85 85 Pulse Rate from SpO2 Sensor 84 86 Respiratory Rate 16 17 Respiratory Effort / Characteristics Respiratory Depth Blood Pressure 99/85 L Blood Pressure Mean 91 Blood Pressure Position Pulse Oximetry 91 90 Oxygen Delivery Method Nasal Cannula Oxygen Flow Rate 2 Sepsis Recent Fever Within 48 Hours Sepsis New/Unexplained Change in Mental Status Sepsis Action Taken by Nursing 11/02/22 05:01 11/02/22 05:01 11/02/22 05:30 Temperature Temperature Source Pulse Rate 89 Pulse Rate from SpO2 Sensor 90 Respiratory Rate 16 Respiratory Effort / Characteristics Respiratory Depth Blood Pressure 131/91 143/76 H Blood Pressure Mean 104 90 Blood Pressure Position Pulse Oximetry 94 Oxygen Delivery Method Nasal Cannula Oxygen Flow Rate 2 Sepsis Recent Fever Within 48 Hours Sepsis New/Unexplained Change in Mental Status Sepsis Action Taken by Nursing 11/02/22 05:30 11/02/22 06:00 11/02/22 06:02 Temperature Temperature Source Pulse Rate 88 91 H Pulse Rate from SpO2 Sensor Respiratory Rate 12 17 Respiratory Effort / Characteristics Respiratory Depth Blood Pressure 116/88 Blood Pressure Mean 94 Blood Pressure Position Pulse Oximetry Oxygen Delivery Method Oxygen Flow Rate Sepsis Recent Fever Within 48 Hours Sepsis New/Unexplained Change in Mental Status Sepsis Action Taken by Nursing 11/02/22 06:02 11/02/22 06:35 11/02/22 06:35 Temperature Temperature Source Pulse Rate 90 85 Pulse Rate from SpO2 Sensor Respiratory Rate 16 14 Respiratory Effort / Characteristics Respiratory Depth Blood Pressure 127/77 Blood Pressure Mean 96 Blood Pressure Position Pulse Oximetry 92 Oxygen Delivery Method Nasal Cannula Oxygen Flow Rate 2 Sepsis Recent Fever Within 48 Hours Sepsis New/Unexplained Change in Mental Status Sepsis Action Taken by Nursing 11/02/22 07:00 11/02/22 07:00 Temperature Temperature Source Pulse Rate 83 Pulse Rate from SpO2 Sensor Respiratory Rate 19 Respiratory Effort / Characteristics Respiratory Depth Blood Pressure 136/83 Blood Pressure Mean 94 Blood Pressure Position Pulse Oximetry Oxygen Delivery Method Oxygen Flow Rate Sepsis Recent Fever Within 48 Hours Sepsis New/Unexplained Change in Mental Status Sepsis Action Taken by Nursing Laboratory Data 11/02/22 02:27 11/02/22 02:27 Lab Results 11/02/22 11/02/22 11/02/22 Range/Units 02:27 02:27 Unknown WBC 4.92 (4.8-10.8) K/ul RBC 3.99 L (4.20-5.40) M/uL Hgb 12.1 (12.0-16.0) g/dl Hct 36.2 L (37.0-47.0) % MCV 90.7 (80.0-100.0) fL MCH 30.3 (25.0-34.0) pg MCHC 33.4 (32.0-36.0) g/dL RDW Std Deviation 40.2 (36.4-46.3) fL RDW Coeff of Neil 12.2 (11.5-14.5) % Plt Count 129 L (130-400) K/uL MPV 12.2 (9.4-12.4) fL Immature Gran % (Auto) 0.2 % Neut % (Auto) 59.2 % Lymph % (Auto) 30.7 % Toole % (Auto) 6.7 % Eos % (Auto) 2.8 % Baso % (Auto) 0.4 % Neut # (Auto) 2.91 (1.40-6.50) K/uL Lymph # (Auto) 1.51 (1.2-3.4) K/uL Toole # (Auto) 0.33 (0.11-0.59) K/uL Eos # (Auto) 0.14 (0-0.50) K/uL Baso # (Auto) 0.02 (0-0.2) K/uL Immature Gran # (Auto) 0.01 (0.01-0.20) K/uL Sodium 137 (136-145) mmol/L Potassium 3.5 (3.5-5.1) mmol/L Chloride 100 (98-107) mmol/L Carbon Dioxide 30 (21-32) mmol/L Anion Gap 7 (3-11) BUN 20 (6-23) mg/dl Creatinine 0.78 (0.6-1.2) mg/dl Est Cr Clr Drug Dosing 68.4 ml/min Est GFR ( Amer) 91.2 ml/min Est GFR (Non-Af Amer) 78.7 ml/min BUN/Creatinine Ratio 25.6 H (10-20) Glucose 105 H (70-99(Fasting)) mg/dl Calcium 9.4 (8.6-10.3) mg/dl Magnesium < 0.5 L* (1.7-2.4) mg/dl SARS-CoV-2, RNA, NAAT NEGATIVE (NEGATIVE) Administered Medications Acetaminophen (Acetaminophen 325 Mg Tab) 650 mg PO Q6H PRN PRN Reason: Fever/Pain Stop: 12/02/22 06:18 Last Admin: 11/02/22 07:26 Dose: 650 mg Documented By: WILDER Magnesium Sulfate/Dextrose (Magnesium Sulfate / D5w) 1 gm in 100 mls @ 50 mls/hr IV Q2H EILEEN Stop: 11/02/22 15:59 Last Admin: 11/02/22 06:07 Dose: 50 mls/hr Documented By: Lactated Ringer's (Lr) 1,000 mls @ 50 mls/hr IV .Q20H ONE Stop: 11/03/22 02:13 Last Admin: 11/02/22 07:18 Dose: 50 mls/hr Documented By: WILDER Discontinued Medications Hydromorphone HCl (Hydromorphone Inj 1 Mg/Ml Syringe) 1 mg IV NOW STA Stop: 11/02/22 03:41 Last Admin: 11/02/22 03:46 Dose: 1 mg Documented By: Lorazepam (Lorazepam 2 Mg/1 Ml Vial) 1 mg IV NOW STA Stop: 11/02/22 04:41 Last Admin: 11/02/22 04:46 Dose: 1 mg Documented By: JR Ondansetron HCl (Ondansetron Inj 2 Mg/Ml 2 Ml Vial) 4 mg IV NOW STA Stop: 11/02/22 03:41 Last Admin: 11/02/22 03:46 Dose: 4 mg Documented By: Oxycodone/Acetaminophen (Oxycodone/Acetaminophen 5mg/325mg Tab) 1 tab PO NOW STA Stop: 11/02/22 02:52 Last Admin: 11/02/22 02:57 Dose: 1 tab Documented By: Imaging Data Radiologist's Impression: Knee X-Ray 11/02/22 02:51 XR knee LT 1 or 2V routine CLINICAL HISTORY: fall COMPARISON: Left knee radiographs May 29, 2022. FINDINGS: Left knee arthroplasty is noted. There is an acute oblique minimally displaced fracture of the distal metadiaphysis and the metaphysis of the left femur that extends to the lateral femoral condyle. The fracture nearly extends to the femoral component of the left knee arthroplasty. IMPRESSION: Acute oblique minimally displaced distal left femoral fracture which nearly extends to the femoral component of the left knee arthroplasty. ACT 112: Negative or not required by law. Electronically signed by: David Zuleta M.D. 11/02/2022 7:03 AM Tibia/Fibula X-Ray 11/02/22 02:51 XR tibia fibula LT 2V CLINICAL HISTORY: fall COMPARISON: Left knee radiographs May 19, 2022. FINDINGS: Please note that the left knee radiographs will be reported separately. The tibial component of the arthroplasty is partially imaged on this exam. There is no acute fracture within the left tibia or fibula. Posterior plantar calcaneal spurring is incidentally noted. IMPRESSION: No acute fracture within the left tibia or fibula. ACT 112: Negative or not required by law. Electronically signed by: David Zuleta M.D. 11/02/2022 7:01 AM Chest X-Ray 11/02/22 06:16 XR chest 1V portable CLINICAL HISTORY: Preoperative evaluation. Hypertension. COMPARISON STUDY: Chest radiograph September 25, 2021. FINDINGS: Lung volumes are normal. There is no pneumothorax or pleural effusion. Cardiac size is normal. Mediastinal contours are normal. There is no evidence for pulmonary edema. Minimal left basilar opacity favors atelectasis. IMPRESSION: No acute cardiopulmonary findings. ACT 112: Negative or not required by law. Electronically signed by: David Zuleta M.D. 11/02/2022 7:00 AM Discharge Plan Visit Data Chief Complaint: Fall Stated Complaint: FALL/lt. PAIN ED Provider: Chrissy Paredes Discharge Problem: Femur fracture, left, Fall Forms Stand Alone Forms: My [facility] Prescriptions Prescriptions: No Action cyclobenzaprine 10 mg Tablet 10 mg PO TID PRN (Reason: Pain) Rx Instructions: FOR BACK PAIN atorvastatin 80 mg Tablet 80 mg PO PM sumatriptan succinate 100 mg Tablet 100 mg PO UD PRN (Reason: MIGRAINES) methadone 10 mg Tablet 5 mg PO TID tramadol 50 mg Tablet 50 mg PO TID PRN (Reason: Pain) Rx Instructions: BACK PAIN amitriptyline 10 mg Tablet 20 mg PO HS duloxetine [Cymbalta] 60 mg Capsule,Delayed Release(Dr/Ec) 60 mg PO HS aspirin 81 mg Tablet,Chewable 81 mg PO QAM iron 18 mg Tablet 28 mg PO DAILY cholecalciferol (vitamin D3) [Vitamin D3] 25 mcg (1,000 unit) Tablet,Chewable 25 mcg PO DAILY cyanocobalamin (vitamin B-12) 2,500 mcg Tablet 2,500 mcg PO DAILY calcium-vitamin D3-vitamin K [Viactiv] 650 mg-12.5 mcg-40 mcg Tablet,Chewable 2 tab PO DAILY Rx Instructions: WITH MEALS multivitamin Tablet,Chewable 1 tab PO DAILY oxycodone-acetaminophen [Percocet] 5-325 mg tablet 2 tab PO Q4H PRN (Reason: pain) Qty: 24 0RF Rx Instructions: Initial Treatment Referrals Referrals: Francisco Salazar MD [Primary Care Provider] -
[2022-11-02] MEDS ORDERED: LORazepam 2 MG/1 ML VIAL IV STA (04:40)
[2022-11-02] MEDS: MAGNESIUM SULFATE / D5W 1 GM/100 ML BAG IV SCH ×4 (06:07→12:29)
--- NOTE | 2022-11-02 06:10 | History & Physical Report ---
Date of Service November 02, 2022 Assessment & Plan (1) Closed left femoral fracture: Plan: Distal femoral fracture secondary to mechanical fall Episodic lethargy during encounter secondary to narcotic Rx Patient on multiple neuropsychotropic and opiate medications at home. History polypharmacy chronic back pain status post surgery on methadone migraine on amitriptyline Situational hypertension possible chronic BP elevation given LVH from 2018 echo Hypomagnesemia valvular heart disease (mild AR/TR TTE 2018) hyperlipidemia statin Rx central sleep apnea as per records, last outpatient pulmonology follow-up 2009 history of gastric bypass DM2 diet-controlled, well-controlled as of recent hemoglobin A1c of 5.8 last May 2022 primary hyperparathyroidism, normocalcemic hyperparathyroidism as per outpatient documentation, patient yet to see translator/interpreter chronic anemia, hemoglobin better than baseline mood disorder, stable past tobacco abuse Medical telemetry given hypomagnesemia Hold parameters for narcotic and neuropsychotropic meds for sedation and confusion. Narcan as needed Orthopedics consult Re: Distal left femoral fracture (ER provider already in touch with Dr. Duke.) N.p.o. until patient seen by Orthopedics. Acceptable risk for cardiac complications resulting from prospective procedure Revised Cardiac Risk Index (RCRI): 1. High-risk type of surgery (examples include vascular and any open intraperitoneal or intrathoracic procedures). No 2. History of ischemic heart disease (history of myocardial infarction or positive exercise test, current compliant of chest pain considered to be secondary to myocardial ischemia, use of nitrate therapy, or ECG with pathological Q waves; do not count prior coronary revascularization procedure unless one of the other criteria for ischemic heart disease is present). No 3. History of heart failure. No 4. History of cerebrovascular disease. No 5. Diabetes mellitus requiring treatment with insulin. No 6. Preoperative serum creatinine >2.0. No Pt has revised cardiac index score of 0 points. (Class I Risk.) 3.9 % 30-day risk of , IN, or cardiac arrest. Acceptable risk for cardiac complications if surgery recommended by Orthopedics and patient/family agreeable to attendant procedural benefits and risks.. Monitor BP, initiate lisinopril if with persistent BP elevation ISS BG goal 1 10-1 40 DVT prophylaxis. SCDs Re: Possible procedure Recommend pharmacologic anticoagulation once bleeding risk is deemed to be minimal and negligible pending Orthopedics evaluation. Full code Patient requests for son to be updated of plan of care. Mr. Stone Francis, contact #[phone]. Text document was generated using [employer] voice recognition software. It may contain grammatical or spelling errors. Kindly contact undersigned for clarification of any documentation item in question. History of Present Illness Chief Complaint: Fall, left leg pain Primary Care Provider: Francisco Salazar MD History obtained from patient, family, and records. Medical history significant for valvular heart disease (mild AR/TR TTE 2018), hyperlipidemia, central sleep apnea as per records, history of gastric bypass, DM2 diet-controlled, primary hyperparathyroidism, chronic anemia (baseline hemoglobin 11), chronic back pain status post surgery on methadone, migraine, mood disorder, polypharmacy, past tobacco abuse. Last confinement November 2019 under Orthopedic service for elective left TKR. Patient slipped on water coming out of her refrigerator causing her to fall down landing on her left side. Achy left knee pain after patient heard a pop. Unable to get up. No head trauma/headache. Patient denies chest pain, SOB, syncope. Patient brought to ER for evaluation. Initial SBP of ER noted to be 160s. Percocet and Dilaudid administered at the ER for pain. Medical History as above Surgical History : Left knee surgery, hip surgery, bariatric surgery, section, BTL, cholecystectomy, ankle surgery, back surgery Family History : Leukemia, DM, heart disease Personal/Social history : Past tobacco abuse, occasional EtOH intake, retired schoolteacher Allergies Allergy/AdvReac Type Severity Reaction Status Date / Time latex AdvReac Mild REDNESS Verified 11/23/19 05:41 AND MILD ITCHING Home Medications Medication Instructions Recorded Confirmed Type amitriptyline 10 mg tablet 20 mg PO HS 10/25/19 11/02/22 History aspirin 81 mg chewable tablet 81 mg PO QAM 10/25/19 11/02/22 History atorvastatin 80 mg tablet 80 mg PO PM 10/25/19 11/02/22 History calcium 650 mg-vitamin D3 12.5 2 tab PO DAILY 10/25/19 11/02/22 History mcg-vitamin K 40 mcg chewable tablet (Viactiv) cholecalciferol (vitamin D3) 25 25 mcg PO DAILY 10/25/19 11/02/22 History mcg (1,000 unit) chewable tablet (Vitamin D3) cyanocobalamin (vitamin B-12) 2,500 mcg PO DAILY 10/25/19 11/02/22 History 2,500 mcg tablet cyclobenzaprine 10 mg tablet 10 mg PO TID PRN Pain 10/25/19 11/02/22 History duloxetine 60 mg capsule,delayed 60 mg PO HS 10/25/19 11/02/22 History release (Cymbalta) iron 18 mg tablet 28 mg PO DAILY 10/25/19 11/02/22 History methadone 10 mg tablet 5 mg PO TID 10/25/19 11/02/22 History multivitamin 1 tab PO DAILY 10/25/19 11/02/22 History sumatriptan succinate 100 mg tablet 100 mg PO UD PRN MIGRAINES 10/25/19 11/02/22 History tramadol 50 mg tablet 50 mg PO TID PRN Pain 10/25/19 11/02/22 History oxycodone-acetaminophen 5 mg-325 2 tab PO Q4H PRN pain #24 tabs 11/24/19 11/02/22 Rx mg tablet (Percocet) gabapentin 300 mg capsule 300 mg PO TID 11/02/22 11/02/22 History Past Med/Surg History Medical History Anemia Chronic, per review of S records baseline ~10.8 Anxiety MILD Cardiac murmur Remote h/o echo, was told not of concern. Very soft I/ systolic on exam, asymptomatic. Chronic back pain Depression Leukopenia Per review of S records, chronic issue dating back to 1996, has been in the 2's since 2010. Migraine Periprosthetic fracture around internal prosthetic left knee joint, initial encounter Surgical History Fusion of spine LUMBAR History of ankle surgery RIGHT History of cataract surgery RIGHT History of section X2 History of cholecystectomy History of colonoscopy History of tooth extraction ALL OF TEETH REMOVED History of total hip arthroplasty RIGHT/LEFT Hx of gastric bypass ABOUT 12 YEARS AGO Social History Smoking Status: Former smoker Tobacco Type: Cigarettes Second Hand Exposure: No; Do You Dip or Chew Tobacco: No; Hx Alcohol Use: Yes Alcohol type: wine Hx Substance Use: No Preferred Language: Uzbek Communication Ability: Effective Visual Impairment: No Limitations Hearing Ability: Normal Air Bag Buffer Required: No Beliefs That Will Affect Care: None marital status: Current Living Situation: Alone Current Living Situation Comment: 1 story with steps to the basesment Feels Safe at Home: Yes Assistive Devices: None Review of Systems Review of Systems: As per HPI, all other systems reviewed and negative Physical Exam Physical Exam: GENERAL: Slightly uncomfortable, episodic lethargy, no respiratory distress SKIN: Pallor, warm HEENT: Pale palpebral conjunctivae, no ptosis, dry buccal mucosa, nasal cannula in place NECK : Supple, no tenderness CHEST : Decreased breath sounds, no tenderness HEART : RRR, no obvious murmurs ABDOMEN: Some distention, nontender EXTREMITIES : LLE splint/wrap, no RLE tenderness NEUROLOGIC : Intermittent lethargy, no facial asymmetry, gait and stance not assessed Results & Data Results & Data Vital Signs (Past 12 Hours) Vital Signs Temp Pulse Resp BP Pulse Ox O2 Del Method 11/02/22 04:12 160/91 H 11/02/22 04:12 84 15 93 Room Air 11/02/22 03:02 161/140 H 11/02/22 03:02 77 16 11/02/22 03:00 81 12 11/02/22 02:30 76 14 98 Room Air 11/02/22 02:33 77 11/02/22 02:17 36.9 C 77 16 167/88 H 96 Room Air Laboratory Results Laboratory Results WBC 4.92 K/ul (4.8-10.8) 11/02/22 02:27 RBC 3.99 M/uL (4.20-5.40) L 11/02/22 02:27 Hgb 12.1 g/dl (12.0-16.0) 11/02/22 02:27 Hct 36.2 % (37.0-47.0) L 11/02/22 02:27 MCV 90.7 fL (80.0-100.0) 11/02/22 02:27 MCH 30.3 pg (25.0-34.0) 11/02/22 02:27 MCHC 33.4 g/dL (32.0-36.0) 11/02/22 02:27 RDW Std Deviation 40.2 fL (36.4-46.3) 11/02/22 02:27 RDW Coeff of Neil 12.2 % (11.5-14.5) 11/02/22 02: Plt Count 129 K/uL (130-400) L 11/02/22 02: MPV 12.2 fL (9.4-12.4) 11/02/22 02: Immature Gran % (Auto) 0.2 % 11/02/22 02: Neut % (Auto) 59.2 % 11/02/22 02: Lymph % (Auto) 30.7 % 11/02/22 02:27 [place] % (Auto) 6.7 % 11/02/22 02: Eos % (Auto) 2.8 % 11/02/22 02: Baso % (Auto) 0.4 % 11/02/22 02: Neut # (Auto) 2.91 K/uL (1.40-6.50) 11/02/22 02: Lymph # (Auto) 1.51 K/uL (1.2-3.4) 11/02/22 02: [place] # (Auto) 0.33 K/uL (0.11-0.59) 11/02/22 02: Eos # (Auto) 0.14 K/uL (0-0.50) 11/02/22 02: Baso # (Auto) 0.02 K/uL (0-0.2) 11/02/22 02: Immature Gran # (Auto) 0.01 K/uL (0.01-0.20) 11/02/22 02: Sodium 137 mmol/L (136-145) 11/02/22 02: Potassium 3.5 mmol/L (3.5-5.1) 11/02/22 02: Chloride 100 mmol/L (98-107) 11/02/22 02: Carbon Dioxide 30 mmol/L (21-32) 11/02/22 02: Anion Gap 7 (3-11) 11/02/22 02: BUN 20 mg/dl (6-23) 11/02/22 02: Creatinine 0.78 mg/dl (0.6-1.2) 11/02/22 02: Est Cr Clr Drug Dosing 68.4 ml/min 11/02/22 02: Est GFR ( Amer) 91.2 ml/min 11/02/22 02:27 Est GFR (Non-Af Amer) 78.7 ml/min 11/02/22 02:27 BUN/Creatinine Ratio 25.6 (10-20) H 11/02/22 02:27 Glucose 105 mg/dl (70-99(Fasting)) H 11/02/22 02:27 Calcium 9.4 mg/dl (8.6-10.3) 11/02/22 02:27 Magnesium < 0.5 mg/dl (1.7-2.4) L* 11/02/22 02:27 SARS-CoV-2, RNA, NAAT NEGATIVE (NEGATIVE) 11/02/22 Unknown Diagnostic Findings Chest x-ray as per my interpretation atelectasis Left femur x-ray as per my interpretation showed displaced left distal femoral fracture EKG as per my interpretation : Rate 85, NSR, LAD, LAFB, T wave abnormalities inferior leads
[2022-11-02] MEDS ORDERED: LACTATED RINGER'S 1,000 ML IV ONE (06:14)
[2022-11-02] MEDS ORDERED: NALOXONE HCL 0.4 MG/1 ML VIAL/CARP IV PRN (06:16)
[2022-11-02] MEDS ORDERED: PROMETHAZINE HCL 6.25 MG in SODIUM CHLORIDE 0.9% 50 ML IV PRN (06:16)
[2022-11-02] MEDS ORDERED: MoRPHine SULFATE 2 MG/ML CARP IV PRN ×2 (06:18→06:22)
--- NOTE | 2022-11-02 07:02 | XRay Report ---
XR chest 1V portable CLINICAL HISTORY: Preoperative evaluation. Hypertension. COMPARISON STUDY: Chest radiograph September 25, 2021. FINDINGS: Lung volumes are normal. There is no pneumothorax or pleural effusion. Cardiac size is norm al. Mediastinal contours are normal. There is no evidence for pulmonary edema. Minimal left basilar o pacity favors atelectasis. IMPRESSION: No acute cardiopulmonary findings. ACT 112: Negative or not required by law. Electronically signed by: David Zuleta M.D. 11/02/2022 7:00 AM
--- NOTE | 2022-11-02 07:03 | XRay Report ---
XR tibia fibula LT 2V CLINICAL HISTORY: fall COMPARISON: Left knee radiographs May 19, 2022. FINDINGS: Please note that the left knee radiographs will be reported separately. The tibial compone nt of the arthroplasty is partially imaged on this exam. There is no acute fracture within the left t ibia or fibula. Posterior plantar calcaneal spurring is incidentally noted. IMPRESSION: No acute fracture within the left tibia or fibula. ACT 112: Negative or not required by law. Electronically signed by: David Zuleta M.D. 11/02/2022 7:01 AM
--- NOTE | 2022-11-02 07:05 | XRay Report ---
XR knee LT 1 or 2V routine CLINICAL HISTORY: fall COMPARISON: Left knee radiographs May 29, 2022. FINDINGS: Left knee arthroplasty is noted. There is an acute oblique minimally displaced fracture of the distal metadiaphysis and the metaphysis of the left femur that extends to the lateral femoral co ndyle. The fracture nearly extends to the femoral component of the left knee arthroplasty. IMPRESSION: Acute oblique minimally displaced distal left femoral fracture which nearly extends to th e femoral component of the left knee arthroplasty. ACT 112: Negative or not required by law. Electronically signed by: David Zuleta M.D. 11/02/2022 7:03 AM
[2022-11-02] MEDS: ACETAMINOPHEN 325 MG TAB PO PRN ×2 (07:26→19:34)
[2022-11-02] MEDS: traMADol HCL 50 MG TABLET PO PRN ×2 (08:16→12:12)
[2022-11-02] MEDS ORDERED: NON-FORMULARY MEDICATION (Iron 18 mg Tablet) PO SCH (09:00)
--- NOTE | 2022-11-02 09:08 | Orthopedic Consultation ---
Date of Service November 02, 2022 Assessment & Plan (1) Closed left femoral fracture: This fractures can require surgical management. She is going to be admitted by the hospitalist service, medically evaluated and optimized and will likely plan on doing the surgery tomorrow. Asked her specifically and she preferred to have Dr. Helms do the surgery if possible. If he is not available will likely be myself. And the plan at this point would be a retrograde IM nail possibly psychologically cables. We will let her eat today, make her n.p.o. after midnight, make sure she is medically optimized, and begin DVT prophylax include thyroid status STDs and aspirin. She will be nonweightbearing at this point and then will begin mobilization postoperatively. (2) Status post total left knee replacement: (3) Periprosthetic fracture around internal prosthetic left knee joint, initial encounter: History of Present Illness Reason for Consultation: . Left periprosthetic femur fracture Requesting Physician: . . Patient is a 67-year-old female who is now over 3 years out from a left knee replacement done by Dr. Helms. She had done well without any problems and last evening/this morning at about 1:00 she was given refrigerator and sustained a fall. Exactly what happens not clear. She had no pre-existing knee pain. She felt a crack and pop in her knee. The cute onset of pain and unable to ambulate. She is brought to the emergency room where x-rays revealed a left periprosthetic femur fracture above her total knee. She has been admitted by the medicine service. Denies any other injuries. Her knee has been working fine till then. Allergies Allergy/AdvReac Type Severity Reaction Status Date / Time latex AdvReac Mild REDNESS Verified 11/23/19 05:41 AND MILD ITCHING Home Medications Medication Instructions Recorded Confirmed Type amitriptyline 10 mg tablet 20 mg PO HS 10/25/19 11/02/22 History aspirin 81 mg chewable tablet 81 mg PO QAM 10/25/19 11/02/22 History atorvastatin 80 mg tablet 80 mg PO PM 10/25/19 11/02/22 History calcium 650 mg-vitamin D3 12.5 2 tab PO DAILY 10/25/19 11/02/22 History mcg-vitamin K 40 mcg chewable tablet (Viactiv) cholecalciferol (vitamin D3) 25 25 mcg PO DAILY 10/25/19 11/02/22 History mcg (1,000 unit) chewable tablet (Vitamin D3) cyanocobalamin (vitamin B-12) 2,500 mcg PO DAILY 10/25/19 11/02/22 History 2,500 mcg tablet cyclobenzaprine 10 mg tablet 10 mg PO TID PRN Pain 10/25/19 11/02/22 History duloxetine 60 mg capsule,delayed 60 mg PO HS 10/25/19 11/02/22 History release (Cymbalta) iron 18 mg tablet 28 mg PO DAILY 10/25/19 11/02/22 History methadone 10 mg tablet 5 mg PO TID 10/25/19 11/02/22 History multivitamin 1 tab PO DAILY 10/25/19 11/02/22 History sumatriptan succinate 100 mg tablet 100 mg PO UD PRN MIGRAINES 10/25/19 11/02/22 History tramadol 50 mg tablet 50 mg PO TID PRN Pain 10/25/19 11/02/22 History oxycodone-acetaminophen 5 mg-325 2 tab PO Q4H PRN pain #24 tabs 11/24/19 11/02/22 Rx mg tablet (Percocet) Past Med/Surg History Medical History (Updated 11/02/22 @ 09:06 by Lew Duke MD) Anemia Chronic, per review of [facility] records baseline ~10.8 Anxiety MILD Cardiac murmur Remote h/o echo, was told not of concern. Very soft I/ systolic on exam, asymptomatic. Chronic back pain Depression Leukopenia Per review of [facility] records, chronic issue dating back to 1996, has been in the 2's since 2010. Migraine Periprosthetic fracture around internal prosthetic left knee joint, initial enco unter Surgical History Fusion of spine LUMBAR History of ankle surgery RIGHT History of cataract surgery RIGHT History of section X2 History of cholecystectomy History of colonoscopy History of tooth extraction ALL OF TEETH REMOVED History of total hip arthroplasty RIGHT/LEFT Hx of gastric bypass ABOUT 12 YEARS AGO Social History Smoking Status: Former smoker Tobacco Type: Cigarettes Second Hand Exposure: No; Do You Dip or Chew Tobacco: No; Hx Alcohol Use: Yes Alcohol type: wine Hx Substance Use: No Preferred Language: Sinhala Communication Ability: Effective Visual Impairment: No Limitations Hearing Ability: Normal Getterer Required: No Beliefs That Will Affect Care: None marital status: Current Living Situation: Alone Feels Safe at Home: Yes Assistive Devices: Walker Review of Systems All systems reviewed & are unremarkable except as noted in HPI & below. Physical Exam . Physical examination reveals a healthy pleasant female. I did wake her this morning and she was fairly somnolent initially. Examination of the left knee and leg reveals the knee immobilizer to be in place. I did remove this and examined the knee. Is well-healed incision over the front of the knee. Some mild diffuse swelling. And the alignment looks good and fairly anatomic. As she obviously cannot do a straight leg raise. Marked pain with any type of attempted knee motion. She can dorsiflex and plantarflex her foot appropriately. Skin is intact. Results & Data Results & Data Laboratory Results . Diagnostic Findings . X-rays of the left knee and femur reviewed. Shows a left total knee replacement. The posterior cruciate substituting knee with a femur fracture above it. A fairly long oblique fracture. Diffuse osteopenia. No signs of implant loosening PG Care Time/CCT Total # of Minutes Spent Total Time Spent with Patient: Total time spent is greater than 50% in coordination of care (as documented) at patient's floor/unit and/or counseling patient: Coding Level of Care Code 73070 IN/OBS CONSULT LVL 5,80M Diagnoses Closed left femoral fracture S72.92XA Status post total left knee replacement Z96.652 Periprosthetic fracture around internal prosthetic left knee joint, initial encounter M97.12XA
[2022-11-02] MEDS ORDERED: GLUCOSE 10 TAB/TUBE PO PRN (09:15)
[2022-11-02] MEDS ORDERED: GLUCOSE 40% GEL 15 GM TUBE PO PRN (09:15)
[2022-11-02] MEDS ORDERED: CARBOHYDRATES FOR HYPOGLYCEMIA PO PRN (09:15)
[2022-11-02] MEDS ORDERED: DEXTROSE 50% 50 ML SYRINGE IV PRN (09:15)
[2022-11-02] MEDS ORDERED: GLUCAGON FOR INJ 1 MG VIAL SQ PRN (09:15)
[2022-11-02] MEDS: KETOROLAC TROMETHAMINE 15 MG/ML VIAL IV PRN ×2 (09:38→17:25)
[2022-11-02] MEDS: METHADONE HCL 5 MG TAB PO SCH ×3 (09:38→21:05)
[2022-11-02] MEDS ORDERED: ENOXAPARIN INJ 40 MG/0.4 ML SYR SQ ONE (10:00)
[2022-11-02] MEDS: INSULIN ASPART PER UNIT CHARGE SC SCH ×4 (10:11→21:06)
[2022-11-02] MEDS: CYANOCOBALAMIN (B-12) 2,500 MCG TABLET PO SCH (10:11)
[2022-11-02] MEDS: MULTIVITAMIN CHEWABLE TAB PO SCH (10:11)
--- NOTE | 2022-11-02 10:49 | XRay Report ---
XR femur LT 2V routine CLINICAL HISTORY: Distal femoral fracture. COMPARISON: Pelvis and left hip radiographs May 19, 2022 and the left knee radiographs performed e leighaer today. FINDINGS: Alignment of the left hip arthroplasty is anatomic. There is no proximal left femoral frac ture. Left knee arthroplasty is noted. Note is again made of an acute displaced periprosthetic fractu re of the distal left femur. Fracture extends from the mid shaft of the left femur to the lateral fem oral condyle. Fracture is displaced 1.3 cm. Fracture displacement appears to have slightly increased since prior radiographs. There is no proximal left tibial or fibular fracture. IMPRESSION: 1. Acute oblique displaced distal left femoral periprosthetic fracture, as described above. 2. Status post left hip and left knee arthroplasties. No proximal left femoral fracture. ACT 112: Negative or not required by law. Electronically signed by: Davdi Zuleta M.D. 11/02/2022 10:47 AM
[2022-11-02] MEDS: CYCLOBENZAPRINE HCL 10 MG TAB PO PRN ×2 (12:12→21:06)
--- NOTE | 2022-11-02 14:17 | Hospitalist Progress Note ---
Date of Service November 02, 2022 Assessment & Plan (1) Fracture of distal end of femur: Plan 67-year-old female admitted for left distal femoral fracture after mechanical fall Left distal femur fracture/periprosthetic fracture around internal prosthetic left knee-imagings reviewed. Seen by orthopedics. Plan for or tomorrow. N.p.o. after midnight. Cautious opiates given her somnolence Lethargy-likely related to her pain medications. Caution with for opiates. Monitor. If does not improve, consider ABG History of migraine on amitriptyline Chronic back pain status post surgery on methadone-hold for sedation Elevated BP-monitor. Hydralazine as needed for now. If persistent, start on scheduled hypertensive DVT prophylaxis-subcu Lovenox. Hold further for surgery tomorrow Disposition-left femoral surgery tomorrow. Will need PT OT and rehab afterwards Admission and Anticipated Discharge Date Admission Date: November 02, 2022 Subjective Patient was seen and examined at bedside. She is sleepy, due to pain medicine, however she is asking for more pain medicine. No fever, chills, chest pain or shortness of breath no nausea or vomiting Review of Systems Review of Systems: All systems reviewed & are unremarkable except as noted in Subjective Physical Exam Physical Exam: General: Sitting in bed, eating lunch, sleepy, on 2 L nasal cannula HEENT: BENJAMIN, MMM Chest: Fair breath sounds bilaterally, no wheezes or crackles CVS: Regular rate and rhythm, normal heart sounds, no murmur Abdomen: Soft, non tender, not distended, normal bowel sounds Neuro: Awake, alert, oriented, conversing well, non focal Extremities: No cyanosis, clubbing. Left knee immobilizer in place Results & Data Results & Data Vital Signs (Past 12 Hours) Vital Signs Temp Pulse Pulse Resp BP BP Pulse Ox 11/02/22 11:48 36.6 C 78 18 98 11/02/22 11:00 75 11/02/22 09:15 36.6 C 72 18 170/87 H 96 11/02/22 08:57 11/02/22 08:30 70 12 95 11/02/22 08:30 140/85 11/02/22 08:00 74 14 94 11/02/22 08:00 141/71 H 11/02/22 07:30 75 15 06/25/23 07:30 147/83 H 11/02/22 07:00 83 19 11/02/22 07:00 136/83 11/02/22 06:35 127/77 11/02/22 06:35 85 14 92 11/02/22 06:02 90 16 11/02/22 06:02 116/88 11/02/22 06:00 91 H 17 11/02/22 05:30 88 12 11/02/22 05:30 143/76 H 11/02/22 05:01 131/91 11/02/22 05:01 89 16 94 11/02/22 05:00 85 17 90 11/02/22 04:32 99/85 L 11/02/22 04:32 85 16 91 11/02/22 06:26 87 11/02/22 04:12 160/91 H 11/02/22 04:12 84 15 93 11/02/22 03:02 161/140 H 11/02/22 03:02 77 16 11/02/22 03:00 81 12 11/02/22 02:30 76 14 98 11/02/22 02:33 77 11/02/22 02:17 36.9 C 77 16 167/88 H 96 O2 Del Method O2 Flow Rate 11/02/22 11:48 Nasal Cannula 2 11/02/22 11:00 11/02/22 09:15 Nasal Cannula 2 11/02/22 08:57 Nasal Cannula 2 11/02/22 08:30 Nasal Cannula 2 11/02/22 08:30 11/02/22 08:00 Nasal Cannula 2 11/02/22 08:00 11/02/22 07:30 Nasal Cannula 2 11/02/22 07:30 11/02/22 07:00 11/02/22 07:00 11/02/22 06:35 11/02/22 06:35 Nasal Cannula 2 11/02/22 06:02 11/02/22 06:02 11/02/22 06:00 11/02/22 05:30 11/02/22 05:30 11/02/22 05:01 11/02/22 05:01 Nasal Cannula 2 11/02/22 05:00 11/02/22 04:32 11/02/22 04:32 Nasal Cannula 2 11/02/22 06:26 11/02/22 04:12 11/02/22 04:12 Room Air 11/02/22 03:02 11/02/22 03:02 11/02/22 03:00 11/02/22 02:30 Room Air 11/02/22 02:33 11/02/22 02:17 Room Air Laboratory Results Short CBC 11/02/22 Range/Units 02:27 WBC 4.92 (4.8-10.8) K/ul Hgb 12.1 (12.0-16.0) g/dl Hct 36.2 L (37.0-47.0) % Plt Count 129 L (130-400) K/uL BMP 11/02/22 02:27 Sodium 137 Potassium 3.5 Chloride 100 Carbon Dioxide 30 BUN 20 Creatinine 0.78 Glucose 105 H Calcium 9.4 Medications Administered Current Inpatient Medications Acetaminophen (Acetaminophen 325 Mg Tab) 650 mg PO Q6H PRN PRN Reason: Fever/Pain Stop: 12/02/22 06:18 Last Admin: 11/02/22 07:26 Dose: 650 mg Amitriptyline HCl (Amitriptyline Hcl 10 Mg Tab) 20 mg PO HS EILEEN Stop: 12/02/22 20:59 Atorvastatin Calcium (Atorvastatin 40 Mg Tab) 80 mg PO PM EILEEN Stop: 12/02/22 20:59 Cyanocobalamin (Cyanocobalamin (B-12) 2,500 Mcg Tablet) 2,500 mcg PO DAILY EILEEN Stop: 12/02/22 09:59 Last Admin: 11/02/22 10:11 Dose: 2,500 mcg Cyclobenzaprine HCl (Cyclobenzaprine Hcl 10 Mg Tab) 10 mg PO TID PRN PRN Reason: Muscle Spasm Stop: 12/02/22 07:09 Last Admin: 11/02/22 12:12 Dose: 10 mg Dextrose (Dextrose 50% 50 Ml Syringe) 25 - 50 ml IV UD PRN; Protocol PRN Reason: Hypoglycemia Protocol Stop: 12/02/22 09:14 Duloxetine HCl (Duloxetine Hcl 60 Mg Cap) 60 mg PO HS EILEEN Stop: 12/02/22 20:59 Glucagon (Glucagon For Inj 1 Mg Vial) 1 mg SQ UD PRN; Protocol PRN Reason: Hypoglycemia Protocol Stop: 12/02/22 09:14 Glucose (Glucose 10 Tab/Tube) 4 - 8 tab PO UD PRN; Protocol PRN Reason: Hypoglycemia Treatment Stop: 12/02/22 09:14 Glucose (Glucose 40% Gel 15 Gm Tube) 15 - 30 gm PO UD PRN; Protocol PRN Reason: Hypoglycemia Protocol Stop: 12/02/22 09:14 Lactated Ringer's (Lr) 1,000 mls @ 50 mls/hr IV .Q20H ONE Stop: 11/03/22 02:13 Last Admin: 11/02/22 07:18 Dose: 50 mls/hr Promethazine HCl 6.25 mg/ (Sodium Chloride) 50.25 mls @ 201 mls/hr IV Q6H PRN PRN Reason: Nausea And Vomiting Stop: 12/02/22 06:15 Insulin Aspart (Insulin Aspart Per Unit Charge) 0 units SC ACHS [facility] Stop: 12/02/22 09:14 Last Admin: 11/02/22 12:01 Dose: Not Given Ketorolac Tromethamine (Ketorolac Tromethamine 15 Mg/Ml Vial) 15 mg IV Q4H PRN PRN Reason: Pain Stop: 11/07/22 06:59 Last Admin: 11/02/22 09:38 Dose: 15 mg Methadone HCl (Methadone Hcl 5 Mg Tab) 5 mg PO TID EILEEN Stop: 11/16/22 09:29 Last Admin: 11/02/22 09:38 Dose: 5 mg Miscellaneous (Carbohydrates For Hypoglycemia ) 15 - 30 gm PO UD PRN PRN Reason: Hypoglycemia Protocol Stop: 12/02/22 09:14 Multivitamins/Folic Acid/Vitamin C (Multivitamin Chewable Tab) 1 tab PO DAILY [facility] Stop: 12/02/22 09:59 Last Admin: 11/02/22 10:11 Dose: 1 tab Naloxone HCl (Naloxone Hcl 0.4 Mg/1 Ml Vial/Carp) 0.1 mg IV UD PRN PRN Reason: Opiate Overdose Stop: 12/02/22 06:15 Tramadol HCl (Tramadol Hcl 50 Mg Tablet) 25 - 50 mg PO Q4H PRN PRN Reason: Pain Stop: 12/02/22 06:17 Last Admin: 11/02/22 12:12 Dose: 50 mg
--- NOTE | 2022-11-02 17:38 | Anesthesiology Consultation ---
Date of Service November 02, 2022 Assessment & Plan Chart Review Chart Review: Acceptable Risk for Surgery and Patient NOT seen in Pre Admission Testing Consults Requested none History Height/Weight Height: 5 ft 3 in Weight: 76.2 kg Allergies Allergy/AdvReac Type Severity Reaction Status Date / Time latex AdvReac Mild REDNESS Verified 11/23/19 05:41 AND MILD ITCHING Medications Home Medications Medication Instructions Recorded Confirmed Last Taken amitriptyline 10 mg tablet 20 mg PO HS 10/25/19 11/02/22 11/01/22 aspirin 81 mg chewable tablet 81 mg PO QAM 10/25/19 11/02/22 11/01/22 atorvastatin 80 mg tablet 80 mg PO PM 10/25/19 11/02/22 10/31/22 calcium 650 mg-vitamin D3 12.5 2 tab PO DAILY 10/25/19 11/02/22 11/01/22 mcg-vitamin K 40 mcg chewable tablet (Viactiv) cholecalciferol (vitamin D3) 25 25 mcg PO DAILY 10/25/19 11/02/22 11/01/22 mcg (1,000 unit) chewable tablet (Vitamin D3) cyanocobalamin (vitamin B-12) 2,500 mcg PO DAILY 10/25/19 11/02/22 11/01/22 2,500 mcg tablet cyclobenzaprine 10 mg tablet 10 mg PO TID PRN Pain 10/25/19 11/02/22 11/01/22 duloxetine 60 mg capsule,delayed 60 mg PO HS 10/25/19 11/02/22 10/31/22 release (Cymbalta) iron 18 mg tablet 28 mg PO DAILY 10/25/19 11/02/22 11/01/22 methadone 10 mg tablet 5 mg PO TID 10/25/19 11/02/22 11/02/22 01:30 multivitamin 1 tab PO DAILY 10/25/19 11/02/22 11/01/22 sumatriptan succinate 100 mg tablet 100 mg PO UD PRN MIGRAINES 10/25/19 11/02/22 11/19/19 22:00 tramadol 50 mg tablet 50 mg PO TID PRN Pain 10/25/19 11/02/22 11/17/19 22:00 oxycodone-acetaminophen 5 mg-325 2 tab PO Q4H PRN pain #24 tabs 11/24/19 11/02/22 11/01/22 mg tablet (Percocet) Active Medications Generic Name Dose Route Start Last Admin Trade Name Ángel PRN Reason Stop Dose Admin Acetaminophen 650 mg 11/02/22 06:19 11/02/22 07:26 Acetaminophen 325 Mg Tab PO 12/02/22 06:18 650 mg Q6H PRN Administration Fever/Pain Cyanocobalamin 2,500 mcg 11/02/22 10:00 11/02/22 10:11 Cyanocobalamin (B-12) 2,500 Mcg Tablet PO 12/02/22 09:59 2,500 mcg DAILY EILEEN Administration Cyclobenzaprine HCl 10 mg 11/02/22 07:10 11/02/22 12:12 Cyclobenzaprine Hcl 10 Mg Tab PO 12/02/22 07:09 10 mg TID PRN Administration Muscle Spasm Lactated Ringer's 1,000 mls @ 50 mls/hr 11/02/22 06:14 11/02/22 07:18 Lr IV 11/03/22 02:13 50 mls/hr .Q20H ONE Administration Insulin Aspart 0 units 11/02/22 09:15 11/02/22 17:34 Insulin Aspart Per Unit Charge SC 12/02/22 09:14 4 units ACHS EILEEN Administration Ketorolac Tromethamine 15 mg 11/02/22 07:00 11/02/22 17:25 Ketorolac Tromethamine 15 Mg/Ml Vial IV 11/07/22 06:59 15 mg Q4H PRN Administration Pain Methadone HCl 5 mg 11/02/22 09:30 11/02/22 14:27 Methadone Hcl 5 Mg Tab PO 11/16/22 09:29 5 mg TID EILEEN Administration Multivitamins/Folic Acid/Vitamin C 1 tab 11/02/22 10:00 11/02/22 10:11 Multivitamin Chewable Tab PO 12/02/22 09:59 1 tab DAILY EILEEN Administration Tramadol HCl 25 - 50 mg 11/02/22 06:18 11/02/22 12:12 Tramadol Hcl 50 Mg Tablet PO 12/02/22 06:17 50 mg Q4H PRN Administration Pain Past Medical History Medical History Anemia Chronic, per review of [facility] records baseline ~10.8 Anxiety MILD Cardiac murmur Remote h/o echo, was told not of concern. Very soft I/ systolic on exam, asymptomatic. Chronic back pain Depression Leukopenia Per review of [facility] records, chronic issue dating back to 1996, has been in the 2's since 2010. Migraine Periprosthetic fracture around internal prosthetic left knee joint, initial encounter Exercise / Class Metabolic Activity II 4-5 Yardwork/Stairs/Walk up hill Past Surgical History Surgical History Fusion of spine LUMBAR History of ankle surgery RIGHT History of cataract surgery RIGHT History of section X2 History of cholecystectomy History of colonoscopy History of tooth extraction ALL OF TEETH REMOVED History of total hip arthroplasty RIGHT/LEFT Hx of gastric bypass ABOUT 12 YEARS AGO Past Anesthesia History No Hx of Anesthesia Complications and No Family Hx of Anesthesia Complications History of PONV No Hx of PONV and No Hx of Motion Sickness Social History Smoking Status: Former smoker Do You Dip or Chew Tobacco: No Hx Alcohol Use: Yes Alcohol type: wine alcohol intake frequency: 0-2 drinks per day Hx Substance Use: No Physical Exam Vital Signs Last Vital Signs Temp 36.4 C L 11/02/22 15:38 Pulse 76 11/02/22 15:38 Resp 18 11/02/22 15:38 BP 147/79 H 11/02/22 15:38 Pulse Ox 97 11/02/22 15:38 O2 Del Method Nasal Cannula 11/02/22 15:38 O2 Flow Rate 2 11/02/22 15:38 Testing Laboratory Results 11/02/22 02:27 11/02/22 02:27 Blood Type A Positive 11/02/22 11:49 Antibody Screen NEGATIVE 11/02/22 11:49 11/02/22 11/02/22 16:39 11:29 POC Glucose 139 H 86 Electrocardiogram Date: 11/02/22 Findings: + NSR @ (@ 86;? anterolat. infarct,age ?) Chest X-Ray Date: 11/02/22 Findings: + NAD
[2022-11-02] MEDS: ATORVASTATIN 40 MG TAB PO SCH (21:04)
[2022-11-02] MEDS: DULoxetine HCL 60 MG CAP PO SCH (21:04)
[2022-11-02] MEDS: AMITRIPTYLINE HCL 10 MG TAB PO SCH (21:05)
[2022-11-02] MEDS: GABAPENTIN 100 MG CAP PO SCH (21:05)
[2022-11-03] MEDS ORDERED: TRANEXAMIC ACID / 0.7% NACL 1000MG/100ML BAG IV ONE ×2 (06:00→12:21)
[2022-11-03 07:05] LABS: Basophils # (auto) 0.01 K/uL (0-0.2); Basophils % (auto) 0.2 %; Eosinophils # (auto) 0.09 K/uL (0-0.50); Eosinophils % (auto) 1.7 %; Hematocrit (blood only) 30.5 % (37.0-47.0); Hemoglobin 9.8 g/dl (12.0-16.0); Immature Granulocytes # (auto) 0.01 K/uL (0.01-0.20); Immature Granulocytes % (auto) 0.2 %; Lymphocytes # (auto) 0.84 K/uL (1.2-3.4); Lymphocytes % (auto) 16.3 %; Mean Corpuscular Hemoglobin 29.6 pg (25.0-34.0); Mean Corpuscular Hgb Conc 32.1 g/dL (32.0-36.0); Mean Corpuscular Volume 92.1 fL (80.0-100.0); Mean Platelet Volume 12.3 fL (9.4-12.4); Monocytes # (auto) 0.28 K/uL (0.11-0.59); Monocytes % (auto) 5.4 %; Neutrophils # (auto) 3.93 K/uL (1.40-6.50); Neutrophils % (auto) 76.2 %; Platelet Count 104 K/uL (130-400); RDW Coefficient of Variation 12.5 % (11.5-14.5); RDW Standard Deviation 41.5 fL (36.4-46.3); Red Blood Count 3.31 M/uL (4.20-5.40); White Blood Count 5.16 K/ul (4.8-10.8)
[2022-11-03 07:10] LABS: BUN Creatinine Ratio 28.6 (10-20); Calcium 8.7 mg/dl (8.6-10.3); Creatinine Clr Calc Pharmacy 93.3 ml/min; Est GFR (African American) 107.6 ml/min; Est GFR (Non-African American) 92.8 ml/min; Potassium 4.1 mmol/L (3.5-5.1)
[2022-11-03] MEDS: INSULIN ASPART PER UNIT CHARGE SC SCH ×4 (08:10→20:49)
--- NOTE | 2022-11-03 09:03 | Orthopedic Progress Note ---
Date of Service November 03, 2022 Assessment & Plan (1) Periprosthetic fracture around internal prosthetic left knee joint, initial encounter: Plan for ORIF of the left femur today with Dr. Duke. She has a total knee and total hip on this side. Procedure was explained including risks, benefits, and alternatives to surgery. Consent obtained. Npo. Will check with anesthesia about her getting methadone this morning before surgery. Subjective . Jazmin is a 67 year old patient with a left periprosthetic femur fracture. Pain is reasonably controlled. No new complaints. Review of Systems All systems reviewed & are unremarkable except as noted in HPI & below. Physical Exam .alert and oriented. NAD. Knee immobilizer on left leg, not removed. Able to dorsiflex and plantarflex. NVI Results & Data Results & Data Laboratory Results . Diagnostic Findings . PG Care Time/CCT Total # of Minutes Spent Total Time Spent with Patient: Total time spent is greater than 50% in coordination of care (as documented) at patient's floor/unit and/or counseling patient: Coding Level of Care Code 16904 SUB INP/OBS CARE 3/50MIN Diagnoses Periprosthetic fracture around internal prosthetic left knee joint, initial encounter M97.12XA
[2022-11-03] MEDS: METHADONE HCL 5 MG TAB PO SCH ×3 (09:21→20:49)
[2022-11-03] MEDS: MULTIVITAMIN CHEWABLE TAB PO SCH (09:22)
[2022-11-03] MEDS: CYANOCOBALAMIN (B-12) 2,500 MCG TABLET PO SCH (09:22)
[2022-11-03] MEDS: GABAPENTIN 100 MG CAP PO SCH ×3 (09:22→20:51)
[2022-11-03] MEDS ORDERED: ONDANSETRON INJ 2 MG/ML 2 ML VIAL IV PRN (10:51)
[2022-11-03] MEDS ORDERED: ATROPINE SULFATE 0.1 MG/ML 10ML SYR IV PRN (10:51)
[2022-11-03] MEDS ORDERED: ePHEDrine sulfate 50 MG/ML AMP IV PRN (10:51)
[2022-11-03] MEDS ORDERED: BUPIVACAINE/EPINEPHRINE 0.5% MPF 1:200,000 30 ML VIAL ONE (11:01)
[2022-11-03] MEDS ORDERED: MIDAZOLAM HCL 1 MG/ML 2ML VIAL ONE (11:02)
[2022-11-03] MEDS ORDERED: fentaNYL citrate PF 100 MCG/2 ML VIAL ONE (11:02)
[2022-11-03] MEDS ORDERED: LIDOCAINE 2% 2 ML VIAL/AMP(20MG/ML) INFIL ONE (11:02)
[2022-11-03] MEDS ORDERED: PROPOFOL IV EMULSION 10 MG/ML 20 ML VIAL IV ONE (11:02)
--- NOTE | 2022-11-03 11:03 | History & Physical Bridge Note ---
Date of Service November 03, 2022 History & Physical Bridge Note I have examined the patient, reviewed the History & Physical and in the interval since the performance of the History & Physical I have noted the following changes of clinical significance: no changes noted
[2022-11-03] MEDS ORDERED: TRANEXAMIC ACID 100 MG/ML 10 ML VIAL IV ONE (11:48)
[2022-11-03] MEDS ORDERED: ceFAZolin 2000MG 2,000 MG/15 ML SYR IV ONE (11:49)
[2022-11-03] MEDS ORDERED: HYDROmorphone INJ 2 MG/ML SYR/VIAL ONE (11:52)
[2022-11-03] MEDS ORDERED: ePHEDrine sulfate 50 MG/ML SYR ONE (12:06)
[2022-11-03] MEDS ORDERED: ceFAZolin 330 MG/ML 1 GM VIAL ONE (12:21)
[2022-11-03] MEDS ORDERED: VANCOMYCIN HCL 1000MG/20ML VIAL ONE (13:35)
[2022-11-03] MEDS ORDERED: GLYCOPYRROLATE 0.2 MG/ML VIAL ONE (13:51)
[2022-11-03] MEDS ORDERED: NEOSTIGMINE METHYLSULFATE 1 MG/ML 10ML VIAL ONE (13:51)
--- NOTE | 2022-11-03 13:57 | Fluoroscopy Report ---
FL femur LT 2V CLINICAL HISTORY: LT ORIF DISTAL FEMUR FX AT KNEE PROSTHESIS TECHNIQUE: 5 views were obtained with the C-arm in the OR with the above procedure. Total fluoroscopy time was 33.4 seconds. Radiation dose was 2.4 mGy. Comparison: Comparison is made to left femur radiograph 11/02/2022 FINDINGS/IMPRESSION: Intraoperative images were obtained of open reduction and internal fixation of l eft femur. Please correlate with intraoperative fluoroscopy and operative report. ACT 112: Negative or not required by law. Electronically signed by: Miky Joy M.D. 11/03/2022 1:55 PM
--- NOTE | 2022-11-03 14:15 | Hospitalist Progress Note ---
Date of Service November 03, 2022 Assessment & Plan (1) Fracture of distal end of femur: Plan 67-year-old female admitted for left distal femoral fracture after mechanical fall Left distal femur fracture/periprosthetic fracture around internal prosthetic left knee-imagings reviewed. Seen by orthopedics. Plan for surgery today and n.p.o. for the same. Lethargy-likely related to her pain medications. Improved today, however will be cautious with her opiates History of migraine on amitriptyline Chronic back pain status post surgery on methadone-hold if drowsy Elevated BP-monitor. Hydralazine as needed for now. If persistent, start on scheduled hypertensive DVT prophylaxis-SCD. Start chemoprophylaxis from tomorrow Disposition-left femoral surgery today. will need PT OT and rehab afterwards Admission and Anticipated Discharge Date Admission Date: November 02, 2022 Subjective Patient was seen and examined at bedside. She is more awake and alert today. States her pain has improved. She is awaiting for the surgery today. No fever, chills, chest pain or shortness of breath no nausea or vomiting. Review of Systems Review of Systems: All systems reviewed & are unremarkable except as noted in Subjective Physical Exam Physical Exam: General: Sitting comfortably in bed, not in distress, on 2 L nasal cannula HEENT: BENJAMIN, MMM Chest: Fair breath sounds bilaterally, no wheezes or crackles CVS: Regular rate and rhythm, normal heart sounds, no murmur Abdomen: Soft, non tender, not distended, normal bowel sounds Neuro: Awake, alert, oriented, conversing well, non focal Extremities: No cyanosis, clubbing. Left knee immobilizer in place : Emmanuel catheter with jaquelin urine Results & Data Results & Data Vital Signs (Past 12 Hours) Vital Signs Temp Pulse Pulse Resp BP BP Pulse Ox 11/03/22 08:00 82 11/03/22 08:10 11/03/22 10:13 37.7 C H 95 H 20 142/92 H 94 11/03/22 07:24 36.8 C 84 18 149/83 H 98 11/03/22 04:00 36.4 C L 86 18 126/75 97 O2 Del Method O2 Flow Rate 11/03/22 08:00 11/03/22 08:10 Nasal Cannula 2 11/03/22 10:13 Nasal Cannula 2 11/03/22 07:24 Nasal Cannula 2 11/03/22 04:00 Nasal Cannula 2 Laboratory Results Short CBC 11/03/22 Range/Units 06:29 WBC 5.16 (4.8-10.8) K/ul Hgb 9.8 L (12.0-16.0) g/dl Hct 30.5 L (37.0-47.0) % Plt Count 104 L (130-400) K/uL BMP 11/03/22 06:29 Sodium 137 Potassium 4.1 Chloride 101 Carbon Dioxide 32 BUN 18 Creatinine 0.63 Glucose 107 H Calcium 8.7 Medications Administered Current Inpatient Medications Acetaminophen (Acetaminophen 325 Mg Tab) 650 mg PO Q6H PRN PRN Reason: Fever/Pain Stop: 12/02/22 06:18 Last Admin: 11/02/22 19:34 Dose: 650 mg Amitriptyline HCl (Amitriptyline Hcl 10 Mg Tab) 20 mg PO HS EILEEN Stop: 12/02/22 20:59 Last Admin: 11/02/22 21:05 Dose: 20 mg Atorvastatin Calcium (Atorvastatin 40 Mg Tab) 80 mg PO PM EILEEN Stop: 12/02/22 20:59 Last Admin: 11/02/22 21:04 Dose: 80 mg Atropine Sulfate (Atropine Sulfate 0.1 Mg/Ml 10ml Syr) 0.5 mg IV Q1M PRN PRN Reason: PACU Use-HR<40 &/or Bradycardi Stop: 11/03/22 18:51 Cyanocobalamin (Cyanocobalamin (B-12) 2,500 Mcg Tablet) 2,500 mcg PO DAILY EILEEN Stop: 12/02/22 09:59 Last Admin: 11/03/22 09:22 Dose: 2,500 mcg Cyclobenzaprine HCl (Cyclobenzaprine Hcl 10 Mg Tab) 10 mg PO TID PRN PRN Reason: Muscle Spasm Stop: 12/02/22 07:09 Last Admin: 11/02/22 21:06 Dose: 10 mg Dextrose (Dextrose 50% 50 Ml Syringe) 25 - 50 ml IV UD PRN; Protocol PRN Reason: Hypoglycemia Protocol Stop: 12/02/22 09:14 Duloxetine HCl (Duloxetine Hcl 60 Mg Cap) 60 mg PO HS EILEEN Stop: 12/02/22 20:59 Last Admin: 11/02/22 21:04 Dose: 60 mg Ephedrine Sulfate (Ephedrine Sulfate 50 Mg/Ml Amp) 5 mg IV Q5M PRN PRN Reason: PACU Use Only-SBP<90 mmHg Stop: 11/03/22 18:51 Fentanyl Citrate (Fentanyl Citrate Pf 100 Mcg/2 Ml Vial) 25 mcg IV Q5M PRN PRN Reason: PACU Use Only-Pain Stop: 11/03/22 18:52 Gabapentin (Gabapentin 100 Mg Cap) 100 mg PO TID [facility] Stop: 12/02/22 20:59 Last Admin: 11/03/22 09:22 Dose: 100 mg Glucagon (Glucagon For Inj 1 Mg Vial) 1 mg SQ UD PRN; Protocol PRN Reason: Hypoglycemia Protocol Stop: 12/02/22 09:14 Glucose (Glucose 10 Tab/Tube) 4 - 8 tab PO UD PRN; Protocol PRN Reason: Hypoglycemia Treatment Stop: 12/02/22 09:14 Glucose (Glucose 40% Gel 15 Gm Tube) 15 - 30 gm PO UD PRN; Protocol PRN Reason: Hypoglycemia Protocol Stop: 12/02/22 09:14 Promethazine HCl 6.25 mg/ (Sodium Chloride) 50.25 mls @ 201 mls/hr IV Q6H PRN PRN Reason: Nausea And Vomiting Stop: 12/02/22 06:15 Insulin Aspart (Insulin Aspart Per Unit Charge) 0 units SC ACHS [facility] Stop: 12/02/22 09:14 Last Admin: 11/03/22 08:10 Dose: 3 units Ketorolac Tromethamine (Ketorolac Tromethamine 15 Mg/Ml Vial) 15 mg IV Q4H PRN PRN Reason: Pain Stop: 11/07/22 06:59 Last Admin: 11/02/22 17:25 Dose: 15 mg Methadone HCl (Methadone Hcl 5 Mg Tab) 5 mg PO TID EILEEN Stop: 11/16/22 09:29 Last Admin: 11/03/22 09:21 Dose: 5 mg Miscellaneous (Carbohydrates For Hypoglycemia ) 15 - 30 gm PO UD PRN PRN Reason: Hypoglycemia Protocol Stop: 12/02/22 09:14 Multivitamins/Folic Acid/Vitamin C (Multivitamin Chewable Tab) 1 tab PO DAILY [facility] Stop: 12/02/22 09:59 Last Admin: 11/03/22 09:22 Dose: 1 tab Naloxone HCl (Naloxone Hcl 0.4 Mg/1 Ml Vial/Carp) 0.1 mg IV UD PRN PRN Reason: Opiate Overdose Stop: 12/02/22 06:15 Ondansetron HCl (Ondansetron Inj 2 Mg/Ml 2 Ml Vial) 4 mg IV ONCE PRN PRN Reason: PACU Use Only-Nausea/Vomiting Stop: 11/03/22 18:52 Oxycodone HCl (Oxycodone Hcl Ir 5 Mg Tab (Immediate Release)) 5 - 10 mg PO QID PRN PRN Reason: Pain Stop: 11/16/22 19:57
[2022-11-03] MEDS: fentaNYL citrate PF 100 MCG/2 ML VIAL IV PRN ×2 (14:31→14:38)
--- NOTE | 2022-11-03 14:36 | Operative Report ---
PG Post Operative Report Pre & Post Diagnosis Operation Date: 11/03/22 07:50 Pre-Op Diagnosis: Left Periprosthetic Femur Fracture Post-Op Diagnosis: Left Periprosthetic Femur Fracture I identified the patient and participated in the time-out.: Yes Procedure Operation Date: 11/03/22 07:50 Actual Procedures p Open Reduction Internal Fixation Left periprosthetic femur Fracture(Left) - Lew Duke MD Surgeon Lew Duke MD Clay Miner [employer] CARLOS Samuels Estimated Blood Loss 350 Findings Consistent with Post-Op Diagnosis Specimens None Drains None Anesthesia Type General Complications none Disposition Accompanied Patient To Recovery: No Indications Patient is a 67-year-old female who has a history of multiple joint replacements in the past including a left hip and left knee replacement. Early yesterday morning she was getting something out of refrigerator and fell. She was sustained a mechanical fall. She had cute onset of pain unable to ambulate. She brought the emergency room x-rays of her left periprosthetic femur fracture. She was admitted by the medicine service, medically optimized indicated for surgical repair. She was not having problems with the hip or knee replacement previously. Description of Procedure Operative implants consist of: 1. Synthes left 12 hole 4.5 variable angle distal femoral condylar locking plate. 2. 7.3 mm distal locking screw. 3. 5.0 variable angle locking screws x6. 4. 4.5 fully threaded cortical screws x5. 6. Synthes 1.7 mm cables x4. The patient was taken the operating, identified, placed on the operating table supine position protectors were properly padded. IV antibiotics were tried by anesthesia team. General anesthetic was implemented due to her multiple back surgeries. A bump was placed underneath the left hip. The left hip and leg were then scrubbed with Hibiclens, prepped with ChloraPrep and draped in usual sterile fashion. A direct lateral approach to the distal femur was then performed through a longitudinal incision. Sharp dissection carried through subcutaneous tissue directly down to the IT band. The IT band was incised longitudinally. The vastus lateralis was retracted anteriorly. The fracture was exposed. The proximal medial spike was identified. We spent time manipulating this to get it in a near anatomic position and held with reduction clamps. I placed 2 Synthes cerclage cables around the fracture to hold it temporarily/provisionally. These were clamped and tightened. A 12 hole left lateral distal condyle locking plate was then sized the lateral aspect of femur. Was fixed distally with the a large 7.3 locking screw and proximally with a 4.5 cortical screw. Plate position was nicely positioned. We then went ahead and affixed this distally with multiple 5.0 locking screws and multiple 4.5 fully threaded cortical screws. I did place 2 screws across the fracture site in a lag type fashion distal to the cables. Proximally where it overlapped with the hip implant we placed 2 Synthes cerclage cables through a cable buttons. Some final x-rays were obtained. The fracture looked anatomically aligned. Hardware is appropriate position. Attention drawn to closing. The wounds irrigated copious amounts of pulsatile lavage solution. I did inject locally with a total of 60 cc of half percent Marcaine with epinephrine. I did place 1 mg of vancomycin and the depth of the wound. The IT band was then closed with 0 Vicryl suture in running fashion the subcutaneous tissues were closed with 2 layers with a deep layer of 0 Vicryl suture and subcutaneous tissues with 2 Dexon suture in buried interrupted fashion the skin was closed skin erick. Leg was then cleaned and dried and sterile dressed with Xeroform, 4 fours, ABD pad, sterile cast padding, Jf bandage applied. Patient then brought out of general esthesia and transferred to the recovery in stable condition. Patient tolerated procedure well and there were no complications. George Samuels, physician assistant case manager, was present for the entire procedure. His assistance was required for proper patient positioning, prepping and draping, surgical exposure, reduction of the fracture, perform the technical details the operation, placement of hardware, closure of the incision site and placement of sterile bandage. I attest to the content of the Intraoperative Record and any orders documented therein. Any exceptions are noted below.
--- NOTE | 2022-11-03 14:54 | Anesthesiology Progress Note ---
Date of Service November 03, 2022 Anesthesia Post Procedure Vital Signs Vital Signs: Temp Pulse Pulse Pulse Resp BP BP 11/03/22 14:45 98.2 F 94 H 18 127/67 11/03/22 14:35 94 H 14 132/70 11/03/22 14:25 97.0 F L 102 H 14 116/78 11/03/22 08:00 82 11/03/22 08:10 11/03/22 10:13 99.9 F H 95 H 20 142/92 H 11/03/22 07:24 98.2 F 84 18 149/83 H 11/02/22 22:00 80 11/03/22 04:00 97.5 F L 86 18 126/75 11/02/22 20:30 11/02/22 23:16 98.2 F 81 18 128/77 11/02/22 19:00 98.4 F 79 18 143/86 H 11/02/22 15:38 97.5 F L 76 18 147/79 H 11/02/22 15:14 70 Pulse Ox O2 Del Method O2 Flow Rate 11/03/22 14:45 92 Nasal Cannula 3 11/03/22 14:35 93 Oxymask 6 11/03/22 14:25 97 Oxymask 8 11/03/22 08:00 11/03/22 08:10 Nasal Cannula 2 11/03/22 10:13 94 Nasal Cannula 2 11/03/22 07:24 98 Nasal Cannula 2 11/02/22 22:00 11/03/22 04:00 97 Nasal Cannula 2 11/02/22 20:30 Nasal Cannula 2 11/02/22 23:16 95 Nasal Cannula 2 11/02/22 19:00 94 Nasal Cannula 2 11/02/22 15:38 97 Nasal Cannula 2 11/02/22 15:14 Pain Intensity Left Knee: Pain Intensity: 6 Left Thigh: Pain Intensity: 5 Transfer of Care Handoff Completed per policy Notes Mental Status: alert / awake / arousable and participated in evaluation Patient Amnestic to Procedure: Yes Nausea / Vomiting: adequately controlled Pain: adequately controlled Airway Patency, RR, SpO2: stable & adequate BP & HR: stable & adequate Hydration State: stable & adequate Anesthetic Complications: no major complications apparent and Pt Satisfied with anesthetic care
[2022-11-03] MEDS ORDERED: GLUCOSE 10 TAB/TUBE PO PRN (15:16)
[2022-11-03] MEDS ORDERED: GLUCOSE 40% GEL 15 GM TUBE PO PRN (15:16)
[2022-11-03] MEDS ORDERED: DEXTROSE 50% 50 ML SYRINGE IV PRN (15:16)
[2022-11-03] MEDS ORDERED: SUMAtriptan succinate 100 MG TAB PO PRN (15:16)
[2022-11-03] MEDS ORDERED: GLUCAGON FOR INJ 1 MG VIAL SQ PRN (15:16)
[2022-11-03] MEDS ORDERED: CARBOHYDRATES FOR HYPOGLYCEMIA PO PRN (15:16)
--- NOTE | 2022-11-03 15:33 | XRay Report ---
LEFT FEMUR 2 VIEWS CLINICAL HISTORY: Postsurgical examination. FINDINGS: AP and crosstable lateral views of the left femur are compared to study dated 11/02/2022. Th e skeletal structures are osteopenic. There has been buttress plate fixation along the lateral cortex of the distal femoral shaft transfixing a spiral fracture of the distal femoral metadiaphysis. Near- anatomic alignment is restored. The orthopedic hardware appears intact. No new fracture is seen. 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 The visualized left pelvis appears intact. Skin clips, sub cutaneous gas, and soft tissue edema in the left thigh are expected postoperative changes. Lumbosacra l fusion hardware is partially visualized. An electronic device is partially seen projecting over the left pelvis. IMPRESSION: 1. Postsurgical change from open reduction and fixation of a distal left femoral fracture as above wi th mosque of near-anatomic alignment. 2. No new fracture is seen. 3. 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 Electronically signed by: Sav Zuniga M.D. 11/03/2022 3:31 PM
[2022-11-03] MEDS: oxyCODONE HCL IR 5 MG TAB (IMMEDIATE RELEASE) PO PRN (18:39)
[2022-11-03] MEDS: CYCLOBENZAPRINE HCL 10 MG TAB PO PRN (20:04)
[2022-11-03] MEDS: ceFAZolin 2000MG 2,000 MG/15 ML SYR IV SCH (20:05)
[2022-11-03] MEDS: ASPIRIN 81 MG ECTAB PO SCH (20:50)
[2022-11-03] MEDS: AMITRIPTYLINE HCL 10 MG TAB PO SCH (20:50)
[2022-11-03] MEDS: ATORVASTATIN 40 MG TAB PO SCH (20:51)
[2022-11-03] MEDS: DULoxetine HCL 60 MG CAP PO SCH (20:52)
[2022-11-04] MEDS: ceFAZolin 2000MG 2,000 MG/15 ML SYR IV SCH (03:44)
[2022-11-04 07:33] LABS: Hematocrit (blood only) 25.3 % (37.0-47.0); Hemoglobin 8.3 g/dl (12.0-16.0); Mean Corpuscular Hgb Conc 32.8 g/dL (32.0-36.0); Mean Corpuscular Volume 91.3 fL (80.0-100.0); Platelet Count 98 K/uL (130-400); RDW Coefficient of Variation 12.4 % (11.5-14.5); RDW Standard Deviation 41.6 fL (36.4-46.3); Red Blood Count 2.77 M/uL (4.20-5.40); White Blood Count 4.69 K/ul (4.8-10.8)
[2022-11-04 07:35] LABS: BUN Creatinine Ratio 18.6 (10-20); Calcium 8.4 mg/dl (8.6-10.3); Creatinine Clr Calc Pharmacy 101.7 ml/min; Est GFR (African American) 109.9 ml/min; Est GFR (Non-African American) 94.8 ml/min; Potassium 3.9 mmol/L (3.5-5.1)
[2022-11-04 07:36] LABS: Basophils # (auto) 0.01 K/uL (0-0.2); Basophils % (auto) 0.2 %; Eosinophils # (auto) 0.01 K/uL (0-0.50); Eosinophils % (auto) 0.2 %; Immature Granulocytes # (auto) 0.01 K/uL (0.01-0.20); Immature Granulocytes % (auto) 0.2 %; Lymphocytes # (auto) 0.81 K/uL (1.2-3.4); Lymphocytes % (auto) 17.3 %; Monocytes # (auto) 0.34 K/uL (0.11-0.59); Monocytes % (auto) 7.2 %; Neutrophils # (auto) 3.51 K/uL (1.40-6.50); Neutrophils % (auto) 74.9 %; Platelet Estimate Decreased (Normal)
--- NOTE | 2022-11-04 08:11 | Electrocardiogram Report ---
Test Reason : Blood Pressure : / mmHG Vent. Rate : 086 BPM Atrial Rate : 086 BPM P-R Int : 162 ms QRS Dur : 100 ms QT Int : 386 ms P-R-T Axes : 030 -26 010 degrees QTc Int : 461 ms Poor data quality, interpretation may be adversely affected Normal sinus rhythm Possible Anterolateral infarct , age undetermined Abnormal ECG When compared with ECG of 25-SEP-2021 16:58, Borderline criteria for Anterolateral infarct are now Present Confirmed by Patrick Guerrero ([id number]) on 11/04/2022 8:11:29 AM Referred By: REFERRED SELF Confirmed By:Patrick Guerrero
[2022-11-04] MEDS: INSULIN ASPART PER UNIT CHARGE SC SCH ×5 (08:35→19:58)
[2022-11-04] MEDS: METHADONE HCL 5 MG TAB PO SCH ×3 (08:36→20:05)
[2022-11-04] MEDS: MULTIVITAMIN CHEWABLE TAB PO SCH (08:36)
[2022-11-04] MEDS: GABAPENTIN 100 MG CAP PO SCH ×3 (08:36→20:07)
[2022-11-04] MEDS: CALCIUM 600MG + VIT D 400 IU TAB PO SCH (08:37)
[2022-11-04] MEDS: ASPIRIN 81 MG ECTAB PO SCH (08:37)
[2022-11-04] MEDS: CYANOCOBALAMIN (B-12) 2,500 MCG TABLET PO SCH (08:37)
[2022-11-04] MEDS: CHOLECALCIFEROL 1,000 UNITS 25 MCG TAB PO SCH (08:37)
--- NOTE | 2022-11-04 09:22 | Orthopedic Progress Note ---
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 She seems to be doing pretty well. We will begin mobilizing her. She is PT OT. She is touch weightbearing for the next 4 to 6 weeks. They can work on range of motion. No particular limitation to this. Plan on DVT prophylax include thigh-high teds SCDs and aspirin twice a day for 6 weeks. Will likely need a rehab or long-term facility stay. Pain is reasonably well controlled. She will likely need to stay on the methadone and then just oxycodone supplementation. I need to see her back 2 to 3 weeks out from surgery date. Any orthopedic questions can be directly [phone] Subjective . 67-year-old female postop day 1 from ORIF of a left periprosthetic femur fracture above a total knee and below a total hip. That she is doing pretty well. Pain is controlled. No chest pain or shortness of breath. Really has been out of bed yet. Review of Systems All systems reviewed & are unremarkable except as noted in HPI & below. Physical Exam . Physical nation was a pleasant middle-age female. She is sitting up in her bed talking and conversing appropriately. She looks pretty comfortable. Examination left leg reveals dressing clean dry and intact. She can dorsiflex and plantarflex her foot appropriately. She is neurologically intact. Results & Data Results & Data Laboratory Results . Hemoglobin 8.3. Hematocrit 25.3. Electrolytes are stable. Diagnostic Findings . 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
[2022-11-04] MEDS: HEPARIN SOD 5,000 UNIT/0.5 ML VIAL SQ SCH ×2 (14:00→20:07)
[2022-11-04] MEDS: traMADol HCL 50 MG TABLET PO PRN ×2 (14:04→22:20)
--- NOTE | 2022-11-04 15:06 | Hospitalist Progress Note ---
Date of Service November 04, 2022 Assessment & Plan (1) Closed left femoral fracture: Plan 67-year-old female admitted for left distal femoral fracture after mechanical fall Left distal femur fracture/periprosthetic fracture around internal prosthetic left knee -imagings reviewed. -Status post open reduction internal fixation left periprosthetic femur fracture by Dr. Duke 11/03/22 -Postop pain controlled. Orthopedics recommends noted as below -- Touch weightbearing for next 4 to 6 weeks, can work on range of motion- no particular limitation to this. Continue PT OT -- Thigh high SCDs and aspirin twice a day for 6 weeks for DVT prophylaxis -- Continue methadone with as needed oxycodone for pain -- Follow-up with orthopedics in 2 to 3 weeks out from surgery date Lethargy-resolved. Fully awake alert. History of migraine on amitriptyline Chronic back pain status post surgery on methadone-PDMP reviewed. Patient is taking methadone 5 mg 3 times daily. Elevated BP-resolved Vitamin D deficiency-vitamin D level 26. started on oral vitamin D and calcium supplements per orthopedics. DVT prophylaxis-sc heparin in-house. Aspirin twice daily at discharge. Disposition-stable to go to rehab. CM assisting Admission and Anticipated Discharge Date Admission Date: November 02, 2022 Subjective Patient was seen and examined at bedside. Pain is controlled. She worked with physical therapy. She was initially hesitant but later agreeable to go to rehab. Voiding without issues. Passing gas but no bowel movement yet. Normal oral intake. No fever, chills, chest pain or shortness of breath, nausea or vomiting. Orthopedic recommendations are noted. Review of Systems Review of Systems: All systems reviewed & are unremarkable except as noted in Subjective Physical Exam Physical Exam: General: Sitting comfortably in chair, not in distress, on room air HEENT: BENJAMIN, MMM Chest: Fair breath sounds bilaterally, no wheezes or crackles CVS: Regular rate and rhythm, normal heart sounds, no murmur Abdomen: Soft, non tender, not distended, normal bowel sounds Neuro: Awake, alert, oriented, conversing well, non focal Extremities: No cyanosis, clubbing. Left leg and foot covered with dressing Results & Data Results & Data Vital Signs (Past 12 Hours) Vital Signs Temp Pulse Pulse Resp BP BP Pulse Ox 11/04/22 11:05 36.8 C 81 18 103/68 96 11/04/22 09:00 11/04/22 07:49 37 C 88 18 135/82 99 11/04/22 07:21 83 11/04/22 03:39 36.9 C 90 18 121/72 91 Pulse Ox O2 Del Method O2 Del Method O2 Flow Rate 11/04/22 11:05 Room Air 11/04/22 09:00 95 Room Air 11/04/22 07:49 Nasal Cannula 2 11/04/22 07:21 11/04/22 03:39 Room Air Laboratory Results Short CBC 11/04/22 Range/Units 06:39 WBC 4.69 L (4.8-10.8) K/ul Hgb 8.3 L (12.0-16.0) g/dl Hct 25.3 L (37.0-47.0) % Plt Count 98 L (130-400) K/uL BMP 11/04/22 06:39 Sodium 136 Potassium 3.9 Chloride 100 Carbon Dioxide 31 BUN 11 Creatinine 0.59 L Glucose 156 H Calcium 8.4 L Medications Administered Current Inpatient Medications Amitriptyline HCl (Amitriptyline Hcl 10 Mg Tab) 20 mg PO HS EILEEN Stop: 12/02/22 20:59 Last Admin: 11/03/22 20:50 Dose: 20 mg Aspirin (Aspirin 81 Mg Ectab) 81 mg PO BID EILEEN Stop: 12/03/22 20:59 Last Admin: 11/04/22 08:37 Dose: 81 mg Atorvastatin Calcium (Atorvastatin 40 Mg Tab) 80 mg PO PM [facility] Stop: 12/02/22 20:59 Last Admin: 11/03/22 20:51 Dose: 80 mg Calcium/Vitamin D (Calcium 600mg + Vit D 400 Iu Tab) 2 tab PO DAILY [facility] Stop: 12/04/22 08:59 Last Admin: 11/04/22 08:37 Dose: 2 tab Cyanocobalamin (Cyanocobalamin (B-12) 2,500 Mcg Tablet) 2,500 mcg PO DAILY [facility] Stop: 12/02/22 09:59 Last Admin: 11/04/22 08:37 Dose: 2,500 mcg Cyclobenzaprine HCl (Cyclobenzaprine Hcl 10 Mg Tab) 10 mg PO TID PRN PRN Reason: Muscle Spasm Stop: 12/02/22 07:09 Last Admin: 11/03/22 20:04 Dose: 10 mg Dextrose (Dextrose 50% 50 Ml Syringe) 25 - 50 ml IV UD PRN; Protocol PRN Reason: Hypoglycemia Protocol Stop: 12/02/22 09:14 Dextrose (Dextrose 50% 50 Ml Syringe) 25 - 50 ml IV UD PRN; Protocol PRN Reason: Hypoglycemia Protocol Stop: 12/03/22 15:15 Duloxetine HCl (Duloxetine Hcl 60 Mg Cap) 60 mg PO HS [facility] Stop: 12/02/22 20:59 Last Admin: 11/03/22 20:52 Dose: 60 mg Gabapentin (Gabapentin 100 Mg Cap) 100 mg PO TID EILEEN Stop: 12/02/22 20:59 Last Admin: 11/04/22 13:59 Dose: 100 mg Glucagon (Glucagon For Inj 1 Mg Vial) 1 mg SQ UD PRN; Protocol PRN Reason: Hypoglycemia Protocol Stop: 12/02/22 09:14 Glucagon (Glucagon For Inj 1 Mg Vial) 1 mg SQ UD PRN; Protocol PRN Reason: Hypoglycemia Protocol Stop: 12/03/22 15:15 Glucose (Glucose 10 Tab/Tube) 4 - 8 tab PO UD PRN; Protocol PRN Reason: Hypoglycemia Treatment Stop: 12/02/22 09:14 Glucose (Glucose 40% Gel 15 Gm Tube) 15 - 30 gm PO UD PRN; Protocol PRN Reason: Hypoglycemia Protocol Stop: 12/02/22 09:14 Glucose (Glucose 10 Tab/Tube) 4 - 8 tab PO UD PRN; Protocol PRN Reason: Hypoglycemia Treatment Stop: 12/03/22 15:15 Glucose (Glucose 40% Gel 15 Gm Tube) 15 - 30 gm PO UD PRN; Protocol PRN Reason: Hypoglycemia Protocol Stop: 12/03/22 15:15 Heparin Sodium (Porcine) (Heparin Sod 5,000 Unit/0.5 Ml Vial) 5,000 units SQ Q8 [facility] Stop: 12/04/22 13:59 Last Admin: 11/04/22 14:00 Dose: 5,000 units Promethazine HCl 6.25 mg/ (Sodium Chloride) 50.25 mls @ 201 mls/hr IV Q6H PRN PRN Reason: Nausea And Vomiting Stop: 12/02/22 06:15 Insulin Aspart (Insulin Aspart Per Unit Charge) 0 units SC ACHS [facility] Stop: 12/02/22 09:14 Last Admin: 11/04/22 12:22 Dose: Not Given Methadone HCl (Methadone Hcl 5 Mg Tab) 5 mg PO TID EILEEN Stop: 11/16/22 09:29 Last Admin: 11/04/22 14:01 Dose: 5 mg Miscellaneous (Carbohydrates For Hypoglycemia ) 15 - 30 gm PO UD PRN PRN Reason: Hypoglycemia Protocol Stop: 12/02/22 09:14 Miscellaneous (Carbohydrates For Hypoglycemia ) 15 - 30 gm PO UD PRN PRN Reason: Hypoglycemia Protocol Stop: 12/03/22 15:15 Multivitamins/Folic Acid/Vitamin C (Multivitamin Chewable Tab) 1 tab PO DAILY E[facility] Stop: 12/02/22 09:59 Last Admin: 11/04/22 08:36 Dose: 1 tab Naloxone HCl (Naloxone Hcl 0.4 Mg/1 Ml Vial/Carp) 0.1 mg IV UD PRN PRN Reason: Opiate Overdose Stop: 12/02/22 06:15 Oxycodone HCl (Oxycodone Hcl Ir 5 Mg Tab (Immediate Release)) 5 - 10 mg PO QID PRN PRN Reason: Pain Stop: 11/16/22 19:57 Last Admin: 11/03/22 18:39 Dose: 10 mg Sumatriptan Succinate (Sumatriptan Succinate 100 Mg Tab) 100 mg PO Q2H PRN PRN Reason: MIGRAINES Stop: 12/03/22 15:15 Tramadol HCl (Tramadol Hcl 50 Mg Tablet) 50 mg PO TID PRN PRN Reason: Pain Stop: 12/03/22 15:15 Last Admin: 11/04/22 14:04 Dose: 50 mg Vitamin D (Cholecalciferol 1,000 Units 25 Mcg Tab) 1,000 units PO DAILY EILEEN Stop: 12/04/22 08:59 Last Admin: 11/04/22 08:37 Dose: 1,000 units
[2022-11-04] MEDS: oxyCODONE HCL IR 5 MG TAB (IMMEDIATE RELEASE) PO PRN (18:19)
[2022-11-04] MEDS: AMITRIPTYLINE HCL 10 MG TAB PO SCH (20:07)
[2022-11-04] MEDS: ATORVASTATIN 40 MG TAB PO SCH (20:07)
[2022-11-04] MEDS: DULoxetine HCL 60 MG CAP PO SCH (20:07)
[2022-11-05] MEDS: HEPARIN SOD 5,000 UNIT/0.5 ML VIAL SQ SCH ×3 (05:54→21:48)
[2022-11-05] MEDS: oxyCODONE HCL IR 5 MG TAB (IMMEDIATE RELEASE) PO PRN ×2 (05:58→18:07)
[2022-11-05 07:03] LABS: Calcium 8.3 mg/dl (8.6-10.3); Creatinine Clr Calc Pharmacy 106.1 ml/min; Est GFR (African American) 110.5 ml/min; Est GFR (Non-African American) 95.4 ml/min; Potassium 3.9 mmol/L (3.5-5.1)
[2022-11-05 07:17] LABS: Hematocrit (blood only) 24.2 % (37.0-47.0); Hemoglobin 7.9 g/dl (12.0-16.0); Mean Corpuscular Hemoglobin 30.2 pg (25.0-34.0); Mean Corpuscular Hgb Conc 32.6 g/dL (32.0-36.0); Mean Corpuscular Volume 92.4 fL (80.0-100.0); Mean Platelet Volume 12.6 fL (9.4-12.4); Platelet Count 98 K/uL (130-400); RDW Coefficient of Variation 12.7 % (11.5-14.5); RDW Standard Deviation 43.1 fL (36.4-46.3); Red Blood Count 2.62 M/uL (4.20-5.40); White Blood Count 3.93 K/ul (4.8-10.8)
[2022-11-05] MEDS ORDERED: POLYETHYLENE (MIRALAX) 17 GM PACK PO ONE (08:23)
[2022-11-05] MEDS: INSULIN ASPART PER UNIT CHARGE SC SCH ×4 (08:49→20:46)
[2022-11-05] MEDS: traMADol HCL 50 MG TABLET PO PRN (08:51)
[2022-11-05] MEDS: MULTIVITAMIN CHEWABLE TAB PO SCH (08:53)
[2022-11-05] MEDS: CALCIUM 600MG + VIT D 400 IU TAB PO SCH (08:54)
[2022-11-05] MEDS: CYANOCOBALAMIN (B-12) 2,500 MCG TABLET PO SCH (08:54)
[2022-11-05] MEDS: GABAPENTIN 100 MG CAP PO SCH ×3 (08:54→20:51)
[2022-11-05] MEDS: CHOLECALCIFEROL 1,000 UNITS 25 MCG TAB PO SCH (08:54)
[2022-11-05] MEDS: ASPIRIN 81 MG ECTAB PO SCH (08:54)
[2022-11-05] MEDS: CYCLOBENZAPRINE HCL 10 MG TAB PO PRN (09:00)
[2022-11-05] MEDS ORDERED: DOCUSATE SODIUM/SENNA 50/8.6MG TAB PO SCH (09:00)
[2022-11-05] MEDS: METHADONE HCL 5 MG TAB PO SCH ×3 (09:00→20:54)
[2022-11-05] MEDS: FERROUS SULFATE 325 MG TAB PO SCH (09:31)
[2022-11-05] MEDS: SIMETHICONE 80 MG CHEW PO PRN (11:21)
--- NOTE | 2022-11-05 11:38 | Orthopedic Progress Note ---
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 She is a bit anemic but really not symptomatic. Pains are reasonably well controlled. 1. DVT prophylaxis with teds SCDs and aspirin twice a day for 6 weeks 2. PT OT. She is touch weightbearing left leg. She can work on range of motion of her knee. Range of motion of the knee from 0 to 90 degrees for the first 2 weeks. 3. Pain control. The doing okay with current pain regimen 4. Medical management as per the medicine service. 5. Disposition she is orthopedically okay for discharge anytime medically stable. I need to see her back 2 to 3 weeks out from surgery date. Any orthopedic questions can direct me [phone]. Subjective . Patient is 67-year-old female now postop day 2 from ORIF of a left periprosthetic femur fracture. She is doing pretty well. Quite a bit of pain with therapy. No real pain while resting in bed. No new complaints. Just feels kind of wiped out. Review of Systems All systems reviewed & are unremarkable except as noted in HPI & below. Physical Exam . Physical nation was a pleasant elderly female. She is lying in bed I did wake her this morning. Examination of the left leg reveals a dressing clean dry and intact. The leg looks well aligned. Can dorsiflex and plantarflex her foot appropriately. She is neurologically intact. Results & Data Results & Data Laboratory Results . Hemoglobin 7.9. Hematocrit 24.2. Electrolytes are stable. Diagnostic Findings . 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
--- NOTE | 2022-11-05 13:22 | Hospitalist Progress Note ---
Date of Service November 05, 2022 Assessment & Plan (1) Closed left femoral fracture: Plan 67-year-old female admitted for left distal femoral fracture after mechanical fall Left distal femur fracture/periprosthetic fracture around internal prosthetic left knee -imagings reviewed. -Status post open reduction internal fixation left periprosthetic femur fracture by Dr. Duke 11/03/22 -Postop pain controlled. Orthopedics recommends noted as below -- Touch weightbearing left leg, She can work on range of motion of her knee. Range of motion of the knee from 0 to 90 degrees for the first 2 weeks. -- Thigh high SCDs and aspirin twice a day for 6 weeks for DVT prophylaxis -- Continue methadone with as needed oxycodone for pain -- Follow-up with orthopedics in 2 to 3 weeks out from surgery date Acute blood loss anemia- likely due to intra op blood loss. No indication for transfusion. Started on oral iron supplementation. History of migraine on amitriptyline Chronic back pain status post surgery on methadone-PDMP reviewed. Patient is taking methadone 5 mg 3 times daily. Vitamin D deficiency-vitamin D level 26. started on oral vitamin D and calcium supplements per orthopedics. DVT prophylaxis-sc heparin in-house. Aspirin twice daily at discharge. Disposition-stable to go to rehab. CM assisting Admission and Anticipated Discharge Date Admission Date: November 02, 2022 Subjective Patient was seen and examined at bedside. No new issues. Pain is controlled. No fever, chills, chest pain, shortness of breath, nausea, vomiting. Review of Systems Review of Systems: All systems reviewed & are unremarkable except as noted in Subjective Physical Exam Physical Exam: General: Sitting comfortably in bed, not in distress, on room air HEENT: BENJAMIN, MMM Chest: Fair breath sounds bilaterally, no wheezes or crackles CVS: Regular rate and rhythm, normal heart sounds, no murmur Abdomen: Soft, non tender, not distended, normal bowel sounds Neuro: Awake, alert, oriented, conversing well, non focal Extremities: No cyanosis, clubbing. Left leg and foot covered with dressing Results & Data Results & Data Vital Signs (Past 12 Hours) Vital Signs Temp Pulse Pulse Resp BP BP Pulse Ox 11/05/22 11:06 36.4 C L 86 18 114/70 90 11/05/22 08:10 16 91 11/05/22 07:11 36.7 C 88 18 121/77 98 11/05/22 06:00 87 11/05/22 02:37 37.1 C 94 H 18 110/72 94 O2 Del Method O2 Flow Rate 11/05/22 11:06 Room Air 11/05/22 08:10 Room Air 11/05/22 07:11 Nasal Cannula 3 11/05/22 06:00 11/05/22 02:37 Nasal Cannula 3 Laboratory Results Short CBC 11/05/22 Range/Units 06:04 WBC 3.93 L (4.8-10.8) K/ul Hgb 7.9 L (12.0-16.0) g/dl Hct 24.2 L (37.0-47.0) % Plt Count 98 L (130-400) K/uL BMP 11/05/22 06:04 Sodium 134 L Potassium 3.9 Chloride 99 Carbon Dioxide 31 BUN 11 Creatinine 0.58 L Glucose 113 H Calcium 8.3 L Medications Administered Current Inpatient Medications Amitriptyline HCl (Amitriptyline Hcl 10 Mg Tab) 20 mg PO HS EILEEN Stop: 12/02/22 20:59 Last Admin: 11/04/22 20:07 Dose: 20 mg Aspirin (Aspirin 81 Mg Ectab) 81 mg PO QAM [facility] Stop: 12/05/22 08:59 Last Admin: 11/05/22 08:54 Dose: 81 mg Atorvastatin Calcium (Atorvastatin 40 Mg Tab) 80 mg PO PM EILEEN Stop: 12/02/22 20:59 Last Admin: 11/04/22 20:07 Dose: 80 mg Calcium/Vitamin D (Calcium 600mg + Vit D 400 Iu Tab) 2 tab PO DAILY EILEEN Stop: 12/04/22 08:59 Last Admin: 11/05/22 08:54 Dose: 2 tab Cyanocobalamin (Cyanocobalamin (B-12) 2,500 Mcg Tablet) 2,500 mcg PO DAILY EILEEN Stop: 12/02/22 09:59 Last Admin: 11/05/22 08:54 Dose: 2,500 mcg Cyclobenzaprine HCl (Cyclobenzaprine Hcl 10 Mg Tab) 10 mg PO TID PRN PRN Reason: Muscle Spasm Stop: 12/02/22 07:09 Last Admin: 11/05/22 09:00 Dose: 10 mg Dextrose (Dextrose 50% 50 Ml Syringe) 25 - 50 ml IV UD PRN; Protocol PRN Reason: Hypoglycemia Protocol Stop: 12/02/22 09:14 Dextrose (Dextrose 50% 50 Ml Syringe) 25 - 50 ml IV UD PRN; Protocol PRN Reason: Hypoglycemia Protocol Stop: 12/03/22 15:15 Duloxetine HCl (Duloxetine Hcl 60 Mg Cap) 60 mg PO HS [facility] Stop: 12/02/22 20:59 Last Admin: 11/04/22 20:07 Dose: 60 mg Ferrous Sulfate (Ferrous Sulfate 325 Mg Tab) 325 mg PO QAM EILEEN Stop: 12/05/22 08:59 Last Admin: 11/05/22 09:31 Dose: 325 mg Gabapentin (Gabapentin 100 Mg Cap) 100 mg PO TID EILEEN Stop: 12/02/22 20:59 Last Admin: 11/05/22 08:54 Dose: 100 mg Glucagon (Glucagon For Inj 1 Mg Vial) 1 mg SQ UD PRN; Protocol PRN Reason: Hypoglycemia Protocol Stop: 12/02/22 09:14 Glucagon (Glucagon For Inj 1 Mg Vial) 1 mg SQ UD PRN; Protocol PRN Reason: Hypoglycemia Protocol Stop: 12/03/22 15:15 Glucose (Glucose 10 Tab/Tube) 4 - 8 tab PO UD PRN; Protocol PRN Reason: Hypoglycemia Treatment Stop: 12/02/22 09:14 Glucose (Glucose 40% Gel 15 Gm Tube) 15 - 30 gm PO UD PRN; Protocol PRN Reason: Hypoglycemia Protocol Stop: 12/02/22 09:14 Glucose (Glucose 10 Tab/Tube) 4 - 8 tab PO UD PRN; Protocol PRN Reason: Hypoglycemia Treatment Stop: 12/03/22 15:15 Glucose (Glucose 40% Gel 15 Gm Tube) 15 - 30 gm PO UD PRN; Protocol PRN Reason: Hypoglycemia Protocol Stop: 12/03/22 15:15 Heparin Sodium (Porcine) (Heparin Sod 5,000 Unit/0.5 Ml Vial) 5,000 units SQ Q8 EILEEN Stop: 12/04/22 13:59 Last Admin: 11/05/22 05:54 Dose: 5,000 units Promethazine HCl 6.25 mg/ (Sodium Chloride) 50.25 mls @ 201 mls/hr IV Q6H PRN PRN Reason: Nausea And Vomiting Stop: 12/02/22 06:15 Insulin Aspart (Insulin Aspart Per Unit Charge) 0 units SC ACHS [facility] Stop: 12/02/22 09:14 Last Admin: 11/05/22 08:49 Dose: 2 units Methadone HCl (Methadone Hcl 5 Mg Tab) 5 mg PO TID EILEEN Stop: 11/16/22 09:29 Last Admin: 11/05/22 09:00 Dose: 5 mg Miscellaneous (Carbohydrates For Hypoglycemia ) 15 - 30 gm PO UD PRN PRN Reason: Hypoglycemia Protocol Stop: 12/02/22 09:14 Miscellaneous (Carbohydrates For Hypoglycemia ) 15 - 30 gm PO UD PRN PRN Reason: Hypoglycemia Protocol Stop: 12/03/22 15:15 Multivitamins/Folic Acid/Vitamin C (Multivitamin Chewable Tab) 1 tab PO DAILY EILEEN Stop: 12/02/22 09:59 Last Admin: 11/05/22 08:53 Dose: 1 tab Naloxone HCl (Naloxone Hcl 0.4 Mg/1 Ml Vial/Carp) 0.1 mg IV UD PRN PRN Reason: Opiate Overdose Stop: 12/02/22 06:15 Oxycodone HCl (Oxycodone Hcl Ir 5 Mg Tab (Immediate Release)) 5 - 10 mg PO QID PRN PRN Reason: Pain Stop: 11/16/22 19:57 Last Admin: 11/05/22 05:58 Dose: 10 mg Senna/Docusate Sodium (Docusate Sodium/Senna 50/8.6mg Tab) 1 tab PO QAM EILE[facility] Stop: 12/05/22 08:59 Last Admin: 11/05/22 09:32 Dose: 1 tab Simethicone (Simethicone 80 Mg Chew) 80 mg PO Q6H PRN PRN Reason: Flatulence Stop: 12/05/22 10:18 Last Admin: 11/05/22 11:21 Dose: 80 mg Sumatriptan Succinate (Sumatriptan Succinate 100 Mg Tab) 100 mg PO Q2H PRN PRN Reason: MIGRAINES Stop: 12/03/22 15:15 Tramadol HCl (Tramadol Hcl 50 Mg Tablet) 50 mg PO TID PRN PRN Reason: Pain Stop: 12/03/22 15:15 Last Admin: 11/05/22 08:51 Dose: 50 mg Vitamin D (Cholecalciferol 1,000 Units 25 Mcg Tab) 1,000 units PO DAILY EILEEN Stop: 12/04/22 08:59 Last Admin: 11/05/22 08:54 Dose: 1,000 units
[2022-11-05] MEDS ORDERED: LACTULOSE SYRUP 20 GM/30 ML UDC PO STA (20:13)
[2022-11-05] MEDS: DULoxetine HCL 60 MG CAP PO SCH (20:49)
[2022-11-05] MEDS: DOCUSATE SODIUM/SENNA 50/8.6MG TAB PO SCH (20:50)
[2022-11-05] MEDS: AMITRIPTYLINE HCL 10 MG TAB PO SCH (20:50)
[2022-11-05] MEDS: ATORVASTATIN 40 MG TAB PO SCH (20:51)
[2022-11-06] MEDS: oxyCODONE HCL IR 5 MG TAB (IMMEDIATE RELEASE) PO PRN ×2 (03:33→23:04)
[2022-11-06] MEDS: HEPARIN SOD 5,000 UNIT/0.5 ML VIAL SQ SCH ×3 (05:46→20:05)
--- NOTE | 2022-11-06 07:12 | Orthopedic Progress Note ---
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 Orthopedically she is doing well. She is stable for transport. She has been anemic but asymptomatic. Would not recommend transfusion. Encourage good p.o. intake DVT prophylax include thigh-high teds SCDs and aspirin twice a day. She is touch weightbearing in the left leg. She can work on knee motion. I need to see her back 2 to 3 weeks out from surgery date. Any orthopedic questions can reactivate [phone] Subjective . 67-year-old female now 3 days out from ORIF of a left periprosthetic femur fracture. Doing well. No new complaints. Denies any chest pain or shortness of breath. Not feeling dizzy or lightheaded. Review of Systems All systems reviewed & are unremarkable except as noted in HPI & below. Physical Exam . Physical examination of the left leg reveals the dressing clean dry and intact. Just a little bit of drainage on it. Some mild swelling. Leg is well aligned. She can do a straight leg raise. She is neurologically intact. Results & Data Results & Data Laboratory Results . Labs are pending. Diagnostic Findings . PG Care Time/CCT Total # of Minutes Spent Total Time Spent with Patient: Total time spent is greater than 50% in coordination of care (as documented) at patient's floor/unit and/or counseling patient: Coding Level of Care Code 73043 Post Operative Follow-Up Diagnoses Periprosthetic fracture around internal prosthetic left knee joint, initial encounter M97.12XA
[2022-11-06 08:19] LABS: Hematocrit (blood only) 23.9 % (37.0-47.0); Mean Corpuscular Hemoglobin 30.5 pg (25.0-34.0); Mean Corpuscular Hgb Conc 33.5 g/dL (32.0-36.0); Mean Corpuscular Volume 91.2 fL (80.0-100.0); Platelet Count 126 K/uL (130-400); RDW Coefficient of Variation 12.7 % (11.5-14.5); RDW Standard Deviation 41.8 fL (36.4-46.3); Red Blood Count 2.62 M/uL (4.20-5.40)
[2022-11-06 08:35] LABS: Calcium 8.8 mg/dl (8.6-10.3); Creatinine Clr Calc Pharmacy 102.7 ml/min; Est GFR (African American) 109.3 ml/min; Est GFR (Non-African American) 94.3 ml/min; Potassium 4.7 mmol/L (3.5-5.1)
[2022-11-06] MEDS: INSULIN ASPART PER UNIT CHARGE SC SCH ×4 (08:47→20:03)
[2022-11-06] MEDS: METHADONE HCL 5 MG TAB PO SCH ×3 (08:52→20:00)
[2022-11-06] MEDS: GABAPENTIN 100 MG CAP PO SCH ×3 (08:52→20:04)
[2022-11-06] MEDS: ASPIRIN 81 MG ECTAB PO SCH (08:53)
[2022-11-06] MEDS: DOCUSATE SODIUM/SENNA 50/8.6MG TAB PO SCH ×2 (08:53→20:04)
[2022-11-06] MEDS: FERROUS SULFATE 325 MG TAB PO SCH (08:53)
[2022-11-06] MEDS: CALCIUM 600MG + VIT D 400 IU TAB PO SCH (08:54)
[2022-11-06] MEDS: CHOLECALCIFEROL 1,000 UNITS 25 MCG TAB PO SCH (08:54)
[2022-11-06] MEDS: MULTIVITAMIN CHEWABLE TAB PO SCH (08:54)
[2022-11-06] MEDS: CYANOCOBALAMIN (B-12) 2,500 MCG TABLET PO SCH (08:54)
[2022-11-06] MEDS ORDERED: DOCUSATE SODIUM/SENNA 50/8.6MG TAB PO SCH (09:00)
--- NOTE | 2022-11-06 15:46 | Hospitalist Progress Note ---
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 -Status post open reduction internal fixation left periprosthetic femur fracture by Dr. Duke 11/03/22 -Postop pain controlled. Orthopedics recommends noted as below -- Touch weightbearing left leg, She can work on range of motion of her knee. Range of motion of the knee from 0 to 90 degrees for the first 2 weeks. -- Thigh high SCDs and aspirin twice a day for 6 weeks for DVT prophylaxis -- Continue methadone with as needed oxycodone for pain -- Follow-up with orthopedics in 2 to 3 weeks out from surgery date Acute blood loss anemia- likely due to intra op blood loss. Hemoglobin has been stable more than 8. No indication for transfusion. Started on oral iron supplementation. History of migraine on amitriptyline Chronic back pain status post surgery on methadone-PDMP reviewed. Patient is taking methadone 5 mg 3 times daily. Vitamin D deficiency-vitamin D level 26. started on oral vitamin D and calcium supplements per orthopedics. DVT prophylaxis-sc heparin in-house. Aspirin twice daily at discharge. Disposition-stable to go to rehab. Awaiting insurance authorization before discharging to rehab. CM following. Admission and Anticipated Discharge Date Admission Date: November 02, 2022 Subjective Patient was seen and examined at bedside. She feels good and ready to go to rehab, awaiting insurance authorization. Pain is controlled. Appetite normal. Had a bowel movement today. Voiding without issues. No fever, chills, chest pain or shortness of breath, lightheadedness, dizziness, nausea or vomiting. Review of Systems Review of Systems: All systems reviewed & are unremarkable except as noted in Subjective Physical Exam Physical Exam: General: Sitting comfortably in bed, not in distress, on room air HEENT: BENJAMIN, MMM Chest: Fair breath sounds bilaterally, no wheezes or crackles CVS: Regular rate and rhythm, normal heart sounds, no murmur Abdomen: Soft, non tender, not distended, normal bowel sounds Neuro: Awake, alert, oriented, conversing well, non focal Extremities: No cyanosis, clubbing. Left leg and foot covered with dressing Results & Data Results & Data Vital Signs (Past 12 Hours) Vital Signs Temp Pulse Resp BP BP Pulse Ox O2 Del Method 11/06/22 11:18 36.6 C 81 17 106/67 92 Room Air 11/06/22 07:56 36.9 C 81 17 106/66 11/06/22 04:41 36.4 C L 87 18 95/56 L Laboratory Results Short CBC 11/06/22 Range/Units 07:32 WBC 3.80 L (4.8-10.8) K/ul Hgb 8.0 L (12.0-16.0) g/dl Hct 23.9 L (37.0-47.0) % Plt Count 126 L (130-400) K/uL BMP 11/06/22 07:32 Sodium 136 Potassium 4.7 D Chloride 99 Carbon Dioxide 35 H BUN 9 Creatinine 0.60 Glucose 110 H Calcium 8.8 Medications Administered Current Inpatient Medications Amitriptyline HCl (Amitriptyline Hcl 10 Mg Tab) 20 mg PO HS EILEEN Stop: 12/02/22 20:59 Last Admin: 11/05/22 20:50 Dose: 20 mg Aspirin (Aspirin 81 Mg Ectab) 81 mg PO QAM EILEEN Stop: 12/05/22 08:59 Last Admin: 11/06/22 08:53 Dose: 81 mg Atorvastatin Calcium (Atorvastatin 40 Mg Tab) 80 mg PO PM EILEEN Stop: 12/02/22 20:59 Last Admin: 11/05/22 20:51 Dose: 80 mg Calcium/Vitamin D (Calcium 600mg + Vit D 400 Iu Tab) 2 tab PO DAILY EILEEN Stop: 12/04/22 08:59 Last Admin: 11/06/22 08:54 Dose: 2 tab Cyanocobalamin (Cyanocobalamin (B-12) 2,500 Mcg Tablet) 2,500 mcg PO DAILY EILEEN Stop: 12/02/22 09:59 Last Admin: 11/06/22 08:54 Dose: 2,500 mcg Cyclobenzaprine HCl (Cyclobenzaprine Hcl 10 Mg Tab) 10 mg PO TID PRN PRN Reason: Muscle Spasm Stop: 12/02/22 07:09 Last Admin: 11/05/22 09:00 Dose: 10 mg Dextrose (Dextrose 50% 50 Ml Syringe) 25 - 50 ml IV UD PRN; Protocol PRN Reason: Hypoglycemia Protocol Stop: 12/02/22 09:14 Dextrose (Dextrose 50% 50 Ml Syringe) 25 - 50 ml IV UD PRN; Protocol PRN Reason: Hypoglycemia Protocol Stop: 12/03/22 15:15 Duloxetine HCl (Duloxetine Hcl 60 Mg Cap) 60 mg PO HS EILEEN Stop: 12/02/22 20:59 Last Admin: 11/05/22 20:49 Dose: 60 mg Ferrous Sulfate (Ferrous Sulfate 325 Mg Tab) 325 mg PO QAM EILEEN Stop: 12/05/22 08:59 Last Admin: 11/06/22 08:53 Dose: 325 mg Gabapentin (Gabapentin 100 Mg Cap) 100 mg PO TID EILEEN Stop: 12/02/22 20:59 Last Admin: 11/06/22 14:34 Dose: 100 mg Glucagon (Glucagon For Inj 1 Mg Vial) 1 mg SQ UD PRN; Protocol PRN Reason: Hypoglycemia Protocol Stop: 12/02/22 09:14 Glucagon (Glucagon For Inj 1 Mg Vial) 1 mg SQ UD PRN; Protocol PRN Reason: Hypoglycemia Protocol Stop: 12/03/22 15:15 Glucose (Glucose 10 Tab/Tube) 4 - 8 tab PO UD PRN; Protocol PRN Reason: Hypoglycemia Treatment Stop: 12/02/22 09:14 Glucose (Glucose 40% Gel 15 Gm Tube) 15 - 30 gm PO UD PRN; Protocol PRN Reason: Hypoglycemia Protocol Stop: 12/02/22 09:14 Glucose (Glucose 10 Tab/Tube) 4 - 8 tab PO UD PRN; Protocol PRN Reason: Hypoglycemia Treatment Stop: 12/03/22 15:15 Glucose (Glucose 40% Gel 15 Gm Tube) 15 - 30 gm PO UD PRN; Protocol PRN Reason: Hypoglycemia Protocol Stop: 12/03/22 15:15 Heparin Sodium (Porcine) (Heparin Sod 5,000 Unit/0.5 Ml Vial) 5,000 units SQ Q8 EILEEN Stop: 12/04/22 13:59 Last Admin: 11/06/22 14:32 Dose: 5,000 units Promethazine HCl 6.25 mg/ (Sodium Chloride) 50.25 mls @ 201 mls/hr IV Q6H PRN PRN Reason: Nausea And Vomiting Stop: 12/02/22 06:15 Insulin Aspart (Insulin Aspart Per Unit Charge) 0 units SC ACHS EILEEN Stop: 12/02/22 09:14 Last Admin: 11/06/22 12:26 Dose: 1 units Methadone HCl (Methadone Hcl 5 Mg Tab) 5 mg PO TID EILEEN Stop: 11/16/22 09:29 Last Admin: 11/06/22 14:32 Dose: 5 mg Miscellaneous (Carbohydrates For Hypoglycemia ) 15 - 30 gm PO UD PRN PRN Reason: Hypoglycemia Protocol Stop: 12/02/22 09:14 Miscellaneous (Carbohydrates For Hypoglycemia ) 15 - 30 gm PO UD PRN PRN Reason: Hypoglycemia Protocol Stop: 12/03/22 15:15 Multivitamins/Folic Acid/Vitamin C (Multivitamin Chewable Tab) 1 tab PO DAILY EILEEN Stop: 12/02/22 09:59 Last Admin: 11/06/22 08:54 Dose: 1 tab Naloxone HCl (Naloxone Hcl 0.4 Mg/1 Ml Vial/Carp) 0.1 mg IV UD PRN PRN Reason: Opiate Overdose Stop: 12/02/22 06:15 Oxycodone HCl (Oxycodone Hcl Ir 5 Mg Tab (Immediate Release)) 5 - 10 mg PO QID PRN PRN Reason: Pain Stop: 11/16/22 19:57 Last Admin: 11/06/22 03:33 Dose: 10 mg Senna/Docusate Sodium (Docusate Sodium/Senna 50/8.6mg Tab) 1 tab PO BID EILEEN Stop: 12/05/22 20:14 Last Admin: 11/06/22 08:53 Dose: 1 tab Simethicone (Simethicone 80 Mg Chew) 80 mg PO Q6H PRN PRN Reason: Flatulence Stop: 12/05/22 10:18 Last Admin: 11/05/22 11:21 Dose: 80 mg Sumatriptan Succinate (Sumatriptan Succinate 100 Mg Tab) 100 mg PO Q2H PRN PRN Reason: MIGRAINES Stop: 12/03/22 15:15 Tramadol HCl (Tramadol Hcl 50 Mg Tablet) 50 mg PO TID PRN PRN Reason: Pain Stop: 12/03/22 15:15 Last Admin: 11/05/22 08:51 Dose: 50 mg Vitamin D (Cholecalciferol 1,000 Units 25 Mcg Tab) 1,000 units PO DAILY EILEEN Stop: 12/04/22 08:59 Last Admin: 11/06/22 08:54 Dose: 1,000 units
[2022-11-06] MEDS: ATORVASTATIN 40 MG TAB PO SCH (20:04)
[2022-11-06] MEDS: AMITRIPTYLINE HCL 10 MG TAB PO SCH (20:04)
[2022-11-06] MEDS: DULoxetine HCL 60 MG CAP PO SCH (20:04)
[2022-11-07] MEDS: HEPARIN SOD 5,000 UNIT/0.5 ML VIAL SQ SCH ×3 (05:21→22:13)
--- NOTE | 2022-11-07 07:14 | Orthopedic Progress Note ---
Date of Service November 07, 2022 Assessment & Plan (1) Periprosthetic fracture around internal prosthetic left knee joint, initial encounter: Patient is a 4 days out from ORIF of a left periprosthetic femur fracture. Orthopedically medically she appears stable. Pain is controlled. She is neurologically intact. I just waiting for placement. In 1. DVT prophylaxis including thigh-high teds SCDs and aspirin twice a day for 6 weeks 2. PT OT. She is touch weightbearing left leg. Her knee range of motion is limited 0 to 90 degrees for the first 2 weeks. Routine wound care. 3. Pain control doing well with current pain regimen. 4. Medical management as per the medicine service #5 disposition she is or thopedically okay for discharge anytime. I need to see her back in my orthopedic clinic somewhere between 2 and 3 weeks out from surgery date. Any orthopedic questions can direct me [phone]. Number to be out of town starting tomorrow morning. If she still in the hospital any orthopedic questions can be directed to me by telephone [phone] or the on-call orthopedic physician. Subjective . 67-year-old female postop day 4 from ORIF of a left periprosthetic femur fracture. She is doing pretty well. Pain is pretty well controlled. Medically she appears stable. Denies any chest pain or shortness of breath. Just wait for placement. Review of Systems All systems reviewed & are unremarkable except as noted in HPI & below. Physical Exam . Physical examination reveals a pleasant middle-age female. I did wake her this morning. She seems a bit groggy. Examination of the left leg reveals the dressing clean dry and intact. Some moderate swelling and bruising around her thigh. No drainage. Leg lengths are equal. She is neurologically intact. Results & Data Results & Data Laboratory Results . Labs are pending Diagnostic Findings . PG Care Time/CCT Total # of Minutes Spent Total Time Spent with Patient: Total time spent is greater than 50% in coordination of care (as documented) at patient's floor/unit and/or counseling patient: Coding Level of Care Code 19047 Post Operative Follow-Up Diagnoses Periprosthetic fracture around internal prosthetic left knee joint, initial encounter M97.12XA
[2022-11-07] MEDS: ASPIRIN 81 MG ECTAB PO SCH (07:51)
[2022-11-07] MEDS: FERROUS SULFATE 325 MG TAB PO SCH (07:51)
[2022-11-07] MEDS: GABAPENTIN 100 MG CAP PO SCH ×3 (07:51→20:46)
[2022-11-07] MEDS: CHOLECALCIFEROL 1,000 UNITS 25 MCG TAB PO SCH (07:51)
[2022-11-07] MEDS: CYANOCOBALAMIN (B-12) 2,500 MCG TABLET PO SCH (07:51)
[2022-11-07] MEDS: CALCIUM 600MG + VIT D 400 IU TAB PO SCH (07:51)
[2022-11-07] MEDS: MULTIVITAMIN CHEWABLE TAB PO SCH (07:52)
[2022-11-07] MEDS: DOCUSATE SODIUM/SENNA 50/8.6MG TAB PO SCH ×2 (07:52→20:46)
[2022-11-07] MEDS: INSULIN ASPART PER UNIT CHARGE SC SCH ×4 (08:00→20:47)
[2022-11-07] MEDS: METHADONE HCL 5 MG TAB PO SCH ×3 (08:00→20:45)
--- NOTE | 2022-11-07 16:00 | Hospitalist Progress Note ---
Date of Service November 07, 2022 Assessment & Plan (1) Closed left femoral fracture: Plan 67-year-old female admitted for left distal femoral fracture after mechanical fall Left distal femur fracture/periprosthetic fracture around internal prosthetic left knee -imagings reviewed. -Status post open reduction internal fixation left periprosthetic femur fracture by Dr. Duke 11/03/22 -Postop pain controlled. Orthopedics recommends noted as below -- Touch weightbearing left leg, She can work on range of motion of her knee. Range of motion of the knee from 0 to 90 degrees for the first 2 weeks. -- Thigh high SCDs and aspirin twice a day for 6 weeks for DVT prophylaxis -- Continue methadone with as needed oxycodone for pain -- Follow-up with orthopedics in 2 to 3 weeks out from surgery date Acute blood loss anemia- likely due to intra op blood loss. Hemoglobin has been stable more than 8. No indication for transfusion. Started on oral iron supplementation. History of migraine on amitriptyline Chronic back pain status post surgery on methadone-PDMP reviewed. Patient is taking methadone 5 mg 3 times daily. Vitamin D deficiency-vitamin D level 26. started on oral vitamin D and calcium supplements per orthopedics. DVT prophylaxis-sc heparin in-house. Aspirin twice daily at discharge. Disposition- Declined for [facility]. [facility] but [facility] not [facility] until Thu. Home health can't start until November 11. She lives by herself and will need eval for step prior to discharge. PT/ OT Admission and Anticipated Discharge Date Admission Date: November 02, 2022 Subjective Seen and examined at bedside. [facility] declined her. Accepted [facility] but bed not available until Thu and she does not want to wait that long. Home health will start from November 11 however she lives by herself and has step to get into her apartment. PT did not evaluate her for step yet. No other issues. Pain controlled. No fever, chills, chest pain, SOB, N/V. Review of Systems Review of Systems: All systems reviewed & are unremarkable except as noted in Subjective Physical Exam Physical Exam: General: Sitting comfortably in bed, not in distress, on room air HEENT: BENJAMIN, MMM Chest: Fair breath sounds bilaterally, no wheezes or crackles CVS: Regular rate and rhythm, normal heart sounds, no murmur Abdomen: Soft, non tender, not distended, normal bowel sounds Neuro: Awake, alert, oriented, conversing well, non focal Extremities: No cyanosis, clubbing. Left leg and foot covered with dressing Results & Data Results & Data Vital Signs (Past 12 Hours) Vital Signs Temp Pulse Pulse Resp BP BP Pulse Ox 11/07/22 15:42 36.8 C 81 18 131/70 94 11/07/22 11:51 36.4 C L 81 18 96/61 L 95 11/07/22 08:00 75 11/07/22 08:00 11/07/22 07:28 36.7 C 72 16 118/78 97 O2 Del Method O2 Flow Rate 11/07/22 15:42 Room Air 11/07/22 11:51 Room Air 11/07/22 08:00 11/07/22 08:00 Nasal Cannula 3 11/07/22 07:28 Nasal Cannula 3
[2022-11-07] MEDS: AMITRIPTYLINE HCL 10 MG TAB PO SCH (20:45)
[2022-11-07] MEDS: DULoxetine HCL 60 MG CAP PO SCH (20:46)
[2022-11-07] MEDS: ATORVASTATIN 40 MG TAB PO SCH (20:46)
[2022-11-07] MEDS: traMADol HCL 50 MG TABLET PO PRN (20:47)
[2022-11-08] MEDS: oxyCODONE HCL IR 5 MG TAB (IMMEDIATE RELEASE) PO PRN ×2 (00:26→12:42)
[2022-11-08] MEDS: HEPARIN SOD 5,000 UNIT/0.5 ML VIAL SQ SCH ×3 (05:19→20:33)
[2022-11-08 07:11] LABS: Hematocrit (blood only) 23.3 % (37.0-47.0); Hemoglobin 7.7 g/dl (12.0-16.0); Mean Corpuscular Hemoglobin 30.6 pg (25.0-34.0); Mean Corpuscular Volume 92.5 fL (80.0-100.0); Mean Platelet Volume 11.5 fL (9.4-12.4); Platelet Count 163 K/uL (130-400); RDW Coefficient of Variation 12.6 % (11.5-14.5); RDW Standard Deviation 42.4 fL (36.4-46.3); Red Blood Count 2.52 M/uL (4.20-5.40); White Blood Count 3.13 K/ul (4.8-10.8)
[2022-11-08 07:31] LABS: BUN Creatinine Ratio 20.6 (10-20); Calcium 8.6 mg/dl (8.6-10.3); Creatinine Clr Calc Pharmacy 96.6 ml/min; Est GFR (African American) 107.6 ml/min; Est GFR (Non-African American) 92.8 ml/min; Potassium 4.3 mmol/L (3.5-5.1)
[2022-11-08] MEDS: INSULIN ASPART PER UNIT CHARGE SC SCH ×4 (08:35→20:59)
[2022-11-08] MEDS: GABAPENTIN 100 MG CAP PO SCH ×3 (08:59→20:33)
[2022-11-08] MEDS: METHADONE HCL 5 MG TAB PO SCH ×3 (08:59→20:31)
[2022-11-08] MEDS: DOCUSATE SODIUM/SENNA 50/8.6MG TAB PO SCH ×2 (08:59→20:32)
[2022-11-08] MEDS: CALCIUM 600MG + VIT D 400 IU TAB PO SCH (09:00)
[2022-11-08] MEDS: CYANOCOBALAMIN (B-12) 2,500 MCG TABLET PO SCH (09:00)
[2022-11-08] MEDS: CHOLECALCIFEROL 1,000 UNITS 25 MCG TAB PO SCH (09:00)
[2022-11-08] MEDS: MULTIVITAMIN CHEWABLE TAB PO SCH (09:00)
[2022-11-08] MEDS: ASPIRIN 81 MG ECTAB PO SCH (09:00)
[2022-11-08] MEDS: FERROUS SULFATE 325 MG TAB PO SCH (09:01)
--- NOTE | 2022-11-08 12:32 | Hospitalist Progress Note ---
Date of Service November 08, 2022 Assessment & Plan (1) Closed left femoral fracture: Plan 67-year-old female admitted for left distal femoral fracture after mechanical fall Left distal femur fracture/periprosthetic fracture around internal prosthetic left knee -imagings reviewed. -Status post open reduction internal fixation left periprosthetic femur fracture by Dr. Duke 11/03/22 -Postop pain controlled. Orthopedics recommends noted as below -- Touch weightbearing left leg, She can work on range of motion of her knee. Range of motion of the knee from 0 to 90 degrees for the first 2 weeks. -- Thigh high SCDs and aspirin twice a day for 6 weeks for DVT prophylaxis -- Continue methadone with as needed oxycodone for pain -- Follow-up with orthopedics in 2 to 3 weeks out from surgery date Acute blood loss anemia- likely due to intra op blood loss. Hemoglobin has been stable close to 8. No indication for transfusion. Started on oral iron supplementation. History of migraine on amitriptyline Chronic back pain status post surgery on methadone-PDMP reviewed. Patient is taking methadone 5 mg 3 times daily. Vitamin D deficiency-vitamin D level 26. started on oral vitamin D and calcium supplements per orthopedics. DVT prophylaxis-sc heparin in-house. Aspirin twice daily at discharge. Disposition- Declined for [facility]. Accept[facility] at [facility] but bed not available until Thu. Home health can't start until November 11. She will need to stay 1 more night for more physical therapy session tomorrow if she is to discharge home. Admission and Anticipated Discharge Date Admission Date: November 02, 2022 Subjective Patient was seen and examined at bedside. She feels good. Denies any new issues. Pain is controlled. She did not do well with sickle therapy with the steps and will have to stay until tomorrow for more physical therapy evaluation given she lives by herself in her apartment. No fever, chills, chest pain, shortness of breath or nausea or vomiting. No lightheadedness or dizziness Review of Systems Review of Systems: All systems reviewed & are unremarkable except as noted in Subjective Physical Exam Physical Exam: General: Sitting comfortably in bed, not in distress, on room air HEENT: BENJAMIN, MMM Chest: Fair breath sounds bilaterally, no wheezes or crackles CVS: Regular rate and rhythm, normal heart sounds, no murmur Abdomen: Soft, non tender, not distended, normal bowel sounds Neuro: Awake, alert, oriented, conversing well, non focal Extremities: No cyanosis, clubbing. Left leg and foot covered with dressing Results & Data Results & Data Vital Signs (Past 12 Hours) Vital Signs Temp Pulse Pulse Resp BP BP Pulse Ox 11/08/22 08:17 37.0 C 63 18 112/69 11/08/22 03:11 37.7 C H 87 18 92/53 L 92 O2 Del Method 11/08/22 08:17 Room Air 11/08/22 03:11 Room Air Laboratory Results Short CBC 11/08/22 Range/Units 06:31 WBC 3.13 L (4.8-10.8) K/ul Hgb 7.7 L (12.0-16.0) g/dl Hct 23.3 L (37.0-47.0) % Plt Count 163 (130-400) K/uL BMP 11/07/22 11/08/22 17:39 06:31 Sodium 138 Potassium 4.3 Chloride 101 Carbon Dioxide 33 H BUN 13 Creatinine 0.63 Glucose 149 H 106 H Calcium 8.6 Medications Administered Current Inpatient Medications Amitriptyline HCl (Amitriptyline Hcl 10 Mg Tab) 20 mg PO HS EILEEN Stop: 12/02/22 20:59 Last Admin: 11/07/22 20:45 Dose: 20 mg Aspirin (Aspirin 81 Mg Ectab) 81 mg PO QAM EILEEN Stop: 12/05/22 08:59 Last Admin: 11/08/22 09:00 Dose: 81 mg Atorvastatin Calcium (Atorvastatin 40 Mg Tab) 80 mg PO PM EILEEN Stop: 12/02/22 20:59 Last Admin: 11/07/22 20:46 Dose: 80 mg Calcium/Vitamin D (Calcium 600mg + Vit D 400 Iu Tab) 2 tab PO DAILY EILEEN Stop: 12/04/22 08:59 Last Admin: 11/08/22 09:00 Dose: 2 tab Cyanocobalamin (Cyanocobalamin (B-12) 2,500 Mcg Tablet) 2,500 mcg PO DAILY EILEEN Stop: 12/02/22 09:59 Last Admin: 11/08/22 09:00 Dose: 2,500 mcg Cyclobenzaprine HCl (Cyclobenzaprine Hcl 10 Mg Tab) 10 mg PO TID PRN PRN Reason: Muscle Spasm Stop: 12/02/22 07:09 Last Admin: 11/05/22 09:00 Dose: 10 mg Dextrose (Dextrose 50% 50 Ml Syringe) 25 - 50 ml IV UD PRN; Protocol PRN Reason: Hypoglycemia Protocol Stop: 12/02/22 09:14 Dextrose (Dextrose 50% 50 Ml Syringe) 25 - 50 ml IV UD PRN; Protocol PRN Reason: Hypoglycemia Protocol Stop: 12/03/22 15:15 Duloxetine HCl (Duloxetine Hcl 60 Mg Cap) 60 mg PO HS [facility] Stop: 12/02/22 20:59 Last Admin: 11/07/22 20:46 Dose: 60 mg Ferrous Sulfate (Ferrous Sulfate 325 Mg Tab) 325 mg PO QAM EILEEN Stop: 12/05/22 08:59 Last Admin: 11/08/22 09:01 Dose: 325 mg Gabapentin (Gabapentin 100 Mg Cap) 100 mg PO TID [facility] Stop: 12/02/22 20:59 Last Admin: 11/08/22 08:59 Dose: 100 mg Glucagon (Glucagon For Inj 1 Mg Vial) 1 mg SQ UD PRN; Protocol PRN Reason: Hypoglycemia Protocol Stop: 12/02/22 09:14 Glucagon (Glucagon For Inj 1 Mg Vial) 1 mg SQ UD PRN; Protocol PRN Reason: Hypoglycemia Protocol Stop: 12/03/22 15:15 Glucose (Glucose 10 Tab/Tube) 4 - 8 tab PO UD PRN; Protocol PRN Reason: Hypoglycemia Treatment Stop: 12/02/22 09:14 Glucose (Glucose 40% Gel 15 Gm Tube) 15 - 30 gm PO UD PRN; Protocol PRN Reason: Hypoglycemia Protocol Stop: 12/02/22 09:14 Glucose (Glucose 10 Tab/Tube) 4 - 8 tab PO UD PRN; Protocol PRN Reason: Hypoglycemia Treatment Stop: 12/03/22 15:15 Glucose (Glucose 40% Gel 15 Gm Tube) 15 - 30 gm PO UD PRN; Protocol PRN Reason: Hypoglycemia Protocol Stop: 12/03/22 15:15 Heparin Sodium (Porcine) (Heparin Sod 5,000 Unit/0.5 Ml Vial) 5,000 units SQ Q8 EILEEN Stop: 12/04/22 13:59 Last Admin: 11/08/22 05:19 Dose: 5,000 units Promethazine HCl 6.25 mg/ (Sodium Chloride) 50.25 mls @ 201 mls/hr IV Q6H PRN PRN Reason: Nausea And Vomiting Stop: 12/02/22 06:15 Insulin Aspart (Insulin Aspart Per Unit Charge) 0 units SC ACHS [facility] Stop: 12/02/22 09:14 Last Admin: 11/08/22 08:35 Dose: 3 units Methadone HCl (Methadone Hcl 5 Mg Tab) 5 mg PO TID EILEEN Stop: 11/16/22 09:29 Last Admin: 11/08/22 08:59 Dose: 5 mg Miscellaneous (Carbohydrates For Hypoglycemia ) 15 - 30 gm PO UD PRN PRN Reason: Hypoglycemia Protocol Stop: 12/02/22 09:14 Last Admin: 11/07/22 16:50 Dose: 15 gm Miscellaneous (Carbohydrates For Hypoglycemia ) 15 - 30 gm PO UD PRN PRN Reason: Hypoglycemia Protocol Stop: 12/03/22 15:15 Multivitamins/Folic Acid/Vitamin C (Multivitamin Chewable Tab) 1 tab PO DAILY [facility] Stop: 12/02/22 09:59 Last Admin: 11/08/22 09:00 Dose: 1 tab Naloxone HCl (Naloxone Hcl 0.4 Mg/1 Ml Vial/Carp) 0.1 mg IV UD PRN PRN Reason: Opiate Overdose Stop: 12/02/22 06:15 Oxycodone HCl (Oxycodone Hcl Ir 5 Mg Tab (Immediate Release)) 5 - 10 mg PO QID PRN PRN Reason: Pain Stop: 11/16/22 19:57 Last Admin: 11/08/22 00:26 Dose: 5 mg Senna/Docusate Sodium (Docusate Sodium/Senna 50/8.6mg Tab) 1 tab PO BID [facility] Stop: 12/05/22 20:14 Last Admin: 11/08/22 08:59 Dose: 1 tab Simethicone (Simethicone 80 Mg Chew) 80 mg PO Q6H PRN PRN Reason: Flatulence Stop: 12/05/22 10:18 Last Admin: 11/05/22 11:21 Dose: 80 mg Sumatriptan Succinate (Sumatriptan Succinate 100 Mg Tab) 100 mg PO Q2H PRN PRN Reason: MIGRAINES Stop: 12/03/22 15:15 Tramadol HCl (Tramadol Hcl 50 Mg Tablet) 50 mg PO TID PRN PRN Reason: Pain Stop: 12/03/22 15:15 Last Admin: 11/07/22 20:47 Dose: 50 mg Vitamin D (Cholecalciferol 1,000 Units 25 Mcg Tab) 1,000 units PO DAILY EILEEN Stop: 12/04/22 08:59 Last Admin: 11/08/22 09:00 Dose: 1,000 units
[2022-11-08] MEDS: ATORVASTATIN 40 MG TAB PO SCH (20:32)
[2022-11-08] MEDS: AMITRIPTYLINE HCL 10 MG TAB PO SCH (20:33)
[2022-11-08] MEDS: DULoxetine HCL 60 MG CAP PO SCH (20:34)
[2022-11-09] MEDS: oxyCODONE HCL IR 5 MG TAB (IMMEDIATE RELEASE) PO PRN (05:11)
[2022-11-09] MEDS: HEPARIN SOD 5,000 UNIT/0.5 ML VIAL SQ SCH ×3 (05:38→21:40)
[2022-11-09] MEDS: GABAPENTIN 100 MG CAP PO SCH ×3 (08:10→21:39)
[2022-11-09] MEDS: CALCIUM 600MG + VIT D 400 IU TAB PO SCH (08:11)
[2022-11-09] MEDS: FERROUS SULFATE 325 MG TAB PO SCH (08:11)
[2022-11-09] MEDS: ASPIRIN 81 MG ECTAB PO SCH (08:11)
[2022-11-09] MEDS: MULTIVITAMIN CHEWABLE TAB PO SCH (08:11)
[2022-11-09] MEDS: CHOLECALCIFEROL 1,000 UNITS 25 MCG TAB PO SCH (08:11)
[2022-11-09] MEDS: CYANOCOBALAMIN (B-12) 2,500 MCG TABLET PO SCH (08:11)
[2022-11-09] MEDS: DOCUSATE SODIUM/SENNA 50/8.6MG TAB PO SCH ×2 (08:12→21:39)
[2022-11-09] MEDS: INSULIN ASPART PER UNIT CHARGE SC SCH ×4 (08:17→21:00)
[2022-11-09] MEDS: METHADONE HCL 5 MG TAB PO SCH ×3 (08:17→21:37)
--- NOTE | 2022-11-09 12:50 | Hospitalist Progress Note ---
Date of Service November 09, 2022 Assessment & Plan (1) Closed left femoral fracture: Plan 67-year-old female admitted for left distal femoral fracture after mechanical fall Left distal femur fracture/periprosthetic fracture around internal prosthetic left knee -imagings reviewed. -Status post open reduction internal fixation left periprosthetic femur fracture by Dr. Duke 11/03/22 -Postop pain controlled. Orthopedics recommends noted as below -- Touch weightbearing left leg, She can work on range of motion of her knee. Range of motion of the knee from 0 to 90 degrees for the first 2 weeks. -- Thigh high SCDs and aspirin twice a day for 6 weeks for DVT prophylaxis -- Continue methadone with as needed oxycodone for pain -- Follow-up with orthopedics in 2 to 3 weeks out from surgery date Acute blood loss anemia- likely due to intra op blood loss. Hemoglobin has been stable close to 8. No indication for transfusion. Started on oral iron supplementation. History of migraine on amitriptyline Chronic back pain status post surgery on methadone-PDMP reviewed. Patient is taking methadone 5 mg 3 times daily. Vitamin D deficiency-vitamin D level 26. started on oral vitamin D and calcium supplements per orthopedics. DVT prophylaxis-sc Lovenox in-house. Aspirin twice daily at discharge. Disposition- [facility]ined for [facility]. Accepted at [facility] but bed not available until Thu. Home health can't start until November 11. Awaiting physical therapy reevaluation if she is safe to discharge home. Admission and Anticipated Discharge Date Admission Date: November 02, 2022 Subjective Patient was seen and examined at bedside. She feels good. Pain is controlled. Awaiting physical therapy evaluation prior to deciding if she is safe to go home or not. Still lives in an apartment by herself and has steps to get into her apartment, also has multiple pets in her apartment, making the home discharge challenging at this time. Physical Exam Physical Exam: General: Sitting comfortably in bed, not in distress, on room air HEENT: BENJAMIN, MMM Chest: Fair breath sounds bilaterally, no wheezes or crackles CVS: Regular rate and rhythm, normal heart sounds, no murmur Abdomen: Soft, non tender, not distended, normal bowel sounds Neuro: Awake, alert, oriented, conversing well, non focal Extremities: No cyanosis, clubbing. Left leg and foot covered with dressing Results & Data Results & Data Vital Signs (Past 12 Hours) Vital Signs Temp Pulse Resp BP BP Pulse Ox O2 Del Method 11/09/22 12:26 122/83 11/09/22 07:40 36.9 C 76 18 108/67 93 Room Air Medications Administered Current Inpatient Medications Amitriptyline HCl (Amitriptyline Hcl 10 Mg Tab) 20 mg PO HS EILEEN Stop: 12/02/22 20:59 Last Admin: 11/08/22 20:33 Dose: 20 mg Aspirin (Aspirin 81 Mg Ectab) 81 mg PO QAM EILEEN Stop: 12/05/22 08:59 Last Admin: 11/09/22 08:11 Dose: 81 mg Atorvastatin Calcium (Atorvastatin 40 Mg Tab) 80 mg PO PM EILEEN Stop: 12/02/22 20:59 Last Admin: 11/08/22 20:32 Dose: 80 mg Calcium/Vitamin D (Calcium 600mg + Vit D 400 Iu Tab) 2 tab PO DAILY EILEEN Stop: 12/04/22 08:59 Last Admin: 11/09/22 08:11 Dose: 2 tab Cyanocobalamin (Cyanocobalamin (B-12) 2,500 Mcg Tablet) 2,500 mcg PO DAILY EILEEN Stop: 12/02/22 09:59 Last Admin: 11/09/22 08:11 Dose: 2,500 mcg Cyclobenzaprine HCl (Cyclobenzaprine Hcl 10 Mg Tab) 10 mg PO TID PRN PRN Reason: Muscle Spasm Stop: 12/02/22 07:09 Last Admin: 11/05/22 09:00 Dose: 10 mg Dextrose (Dextrose 50% 50 Ml Syringe) 25 - 50 ml IV UD PRN; Protocol PRN Reason: Hypoglycemia Protocol Stop: 12/03/22 15:15 Duloxetine HCl (Duloxetine Hcl 60 Mg Cap) 60 mg PO HS EILEEN Stop: 12/02/22 20:59 Last Admin: 11/08/22 20:34 Dose: 60 mg Ferrous Sulfate (Ferrous Sulfate 325 Mg Tab) 325 mg PO QAM EILEEN Stop: 12/05/22 08:59 Last Admin: 11/09/22 08:11 Dose: 325 mg Gabapentin (Gabapentin 100 Mg Cap) 100 mg PO TID EILEEN Stop: 12/02/22 20:59 Last Admin: 11/09/22 08:10 Dose: 100 mg Glucagon (Glucagon For Inj 1 Mg Vial) 1 mg SQ UD PRN; Protocol PRN Reason: Hypoglycemia Protocol Stop: 12/03/22 15:15 Glucose (Glucose 10 Tab/Tube) 4 - 8 tab PO UD PRN; Protocol PRN Reason: Hypoglycemia Treatment Stop: 12/03/22 15:15 Glucose (Glucose 40% Gel 15 Gm Tube) 15 - 30 gm PO UD PRN; Protocol PRN Reason: Hypoglycemia Protocol Stop: 12/03/22 15:15 Heparin Sodium (Porcine) (Heparin Sod 5,000 Unit/0.5 Ml Vial) 5,000 units SQ Q8 EILEEN Stop: 12/04/22 13:59 Last Admin: 11/09/22 05:38 Dose: 5,000 units Promethazine HCl 6.25 mg/ (Sodium Chloride) 50.25 mls @ 201 mls/hr IV Q6H PRN PRN Reason: Nausea And Vomiting Stop: 12/02/22 06:15 Insulin Aspart (Insulin Aspart Per Unit Charge) 0 units SC ACHS [facility] Stop: 12/02/22 09:14 Last Admin: 11/09/22 12:27 Dose: 3 units Methadone HCl (Methadone Hcl 5 Mg Tab) 5 mg PO TID [facility] Stop: 11/16/22 09:29 Last Admin: 11/09/22 08:17 Dose: 5 mg Miscellaneous (Carbohydrates For Hypoglycemia ) 15 - 30 gm PO UD PRN PRN Reason: Hypoglycemia Protocol Stop: 12/03/22 15:15 Multivitamins/Folic Acid/Vitamin C (Multivitamin Chewable Tab) 1 tab PO DAILY [facility] Stop: 12/02/22 09:59 Last Admin: 11/09/22 08:11 Dose: 1 tab Naloxone HCl (Naloxone Hcl 0.4 Mg/1 Ml Vial/Carp) 0.1 mg IV UD PRN PRN Reason: Opiate Overdose Stop: 12/02/22 06:15 Oxycodone HCl (Oxycodone Hcl Ir 5 Mg Tab (Immediate Release)) 5 - 10 mg PO QID PRN PRN Reason: Pain Stop: 11/16/22 19:57 Last Admin: 11/09/22 05:11 Dose: 10 mg Senna/Docusate Sodium (Docusate Sodium/Senna 50/8.6mg Tab) 1 tab PO BID [facility] Stop: 12/05/22 20:14 Last Admin: 11/09/22 08:12 Dose: Not Given Simethicone (Simethicone 80 Mg Chew) 80 mg PO Q6H PRN PRN Reason: Flatulence Stop: 12/05/22 10:18 Last Admin: 11/05/22 11:21 Dose: 80 mg Sumatriptan Succinate (Sumatriptan Succinate 100 Mg Tab) 100 mg PO Q2H PRN PRN Reason: MIGRAINES Stop: 12/03/22 15:15 Tramadol HCl (Tramadol Hcl 50 Mg Tablet) 50 mg PO TID PRN PRN Reason: Pain Stop: 12/03/22 15:15 Last Admin: 11/07/22 20:47 Dose: 50 mg Vitamin D (Cholecalciferol 1,000 Units 25 Mcg Tab) 1,000 units PO DAILY EILEEN Stop: 12/04/22 08:59 Last Admin: 11/09/22 08:11 Dose: 1,000 units
[2022-11-09] MEDS: ATORVASTATIN 40 MG TAB PO SCH (21:37)
[2022-11-09] MEDS: DULoxetine HCL 60 MG CAP PO SCH (21:38)
[2022-11-09] MEDS: AMITRIPTYLINE HCL 10 MG TAB PO SCH (21:39)
[2022-11-10] MEDS: oxyCODONE HCL IR 5 MG TAB (IMMEDIATE RELEASE) PO PRN ×2 (05:44→14:06)
[2022-11-10] MEDS: HEPARIN SOD 5,000 UNIT/0.5 ML VIAL SQ SCH ×2 (05:45→14:19)
[2022-11-10] MEDS: INSULIN ASPART PER UNIT CHARGE SC SCH ×2 (08:29→12:45)
[2022-11-10] MEDS: GABAPENTIN 100 MG CAP PO SCH ×2 (08:30→14:05)
[2022-11-10] MEDS: CYANOCOBALAMIN (B-12) 2,500 MCG TABLET PO SCH (08:31)
[2022-11-10] MEDS: CHOLECALCIFEROL 1,000 UNITS 25 MCG TAB PO SCH (08:31)
[2022-11-10] MEDS: MULTIVITAMIN CHEWABLE TAB PO SCH (08:32)
[2022-11-10] MEDS: CALCIUM 600MG + VIT D 400 IU TAB PO SCH (08:32)
[2022-11-10] MEDS: FERROUS SULFATE 325 MG TAB PO SCH (08:32)
[2022-11-10] MEDS: ASPIRIN 81 MG ECTAB PO SCH (08:32)
[2022-11-10] MEDS: SIMETHICONE 80 MG CHEW PO PRN (08:33)
[2022-11-10] MEDS: DOCUSATE SODIUM/SENNA 50/8.6MG TAB PO SCH (08:33)
[2022-11-10] MEDS: METHADONE HCL 5 MG TAB PO SCH ×2 (08:37→14:06)
--- NOTE | 2022-11-10 15:14 | Discharge Summary ---
Date of Service November 10, 2022 Admission HPI Per Admitting Provider History obtained from patient, family, and records. Medical history significant for valvular heart disease (mild AR/TR TTE 2017), hyperlipidemia, central sleep apnea as per records, history of gastric bypass, DM2 diet-controlled, primary hyperparathyroidism, chronic anemia (baseline hemoglobin 11), chronic back pain status post surgery on methadone, migraine, mood disorder, polypharmacy, past tobacco abuse. Last confinement November 2019 under Orthopedic service for elective left TKR. Patient slipped on water coming out of her refrigerator causing her to fall down landing on her left side. Achy left knee pain after patient heard a pop. Unable to get up. No head trauma/headache. Patient denies chest pain, SOB, syncope. Patient brought to ER for evaluation. Initial SBP of ER noted to be 160s. Percocet and Dilaudid administered at the ER for pain. Medical History as above Surgical History : Left knee surgery, hip surgery, bariatric surgery, section, BTL, cholecystectomy, ankle surgery, back surgery Family History : Leukemia, DM, heart disease Personal/Social history : Past tobacco abuse, occasional EtOH intake, retired schoolteacher Admission Exam Per Admitting Provider GENERAL: Slightly uncomfortable, episodic lethargy, no respiratory distress SKIN: Pallor, warm HEENT: Pale palpebral conjunctivae, no ptosis, dry buccal mucosa, nasal cannula in place NECK : Supple, no tenderness CHEST : Decreased breath sounds, no tenderness HEART : RRR, no obvious murmurs ABDOMEN: Some distention, nontender EXTREMITIES : LLE splint/wrap, no RLE tenderness NEUROLOGIC : Intermittent lethargy, no facial asymmetry, gait and stance not assessed Principal Diagnosis Left distal femur fracture/periprosthetic fracture around internal prosthetic left knee s/p ORIF Discharge Exam General: Sitting comfortably in bed, not in distress, on room air HEENT: BENJAMIN, MMM Chest: Fair breath sounds bilaterally, no wheezes or crackles CVS: Regular rate and rhythm, normal heart sounds, no murmur Abdomen: Soft, non tender, not distended, normal bowel sounds Neuro: Awake, alert, oriented, conversing well, non focal Extremities: No cyanosis, clubbing. left thigh incision site clean, dry, intact with erick Discharge Data Allergies Allergy/AdvReac Type Severity Reaction Status Date / Time latex AdvReac Mild REDNESS Verified 11/23/19 05:41 AND MILD ITCHING Consultations 11/02/22 04:47 ED Decision to Admit Stat 11/02/22 06:14 Consult Orthopedic Surgery Routine Procedures Performed Operation Date: 11/03/22 07:50 Actual Procedures p Open Reduction Internal Fixation Left Femur Fracture(Left) - Lew Duke MD Ordered Studies 11/03/22 11:00 FL femur LT 2V Routine Laboratory Results WBC 3.13 K/ul (4.8-10.8) L 11/08/22 06:31 RBC 2.52 M/uL (4.20-5.40) L 11/08/22 06:31 Hgb 7.7 g/dl (12.0-16.0) L 11/08/22 06:31 Hct 23.3 % (37.0-47.0) L 11/08/22 06:31 MCV 92.5 fL (80.0-100.0) 11/08/22 06:31 MCH 30.6 pg (25.0-34.0) 11/08/22 06:31 MCHC 33.0 g/dL (32.0-36.0) 11/08/22 06:31 RDW Std Deviation 42.4 fL (36.4-46.3) 11/08/22 06:31 RDW Coeff of Neil 12.6 % (11.5-14.5) 11/08/22 06:31 Plt Count 163 K/uL (130-400) 11/08/22 06:31 MPV 11.5 fL (9.4-12.4) 11/08/22 06:31 Immature Gran % (Auto) 0.2 % 11/04/22 06:39 Neut % (Auto) 74.9 % 11/04/22 06:39 Lymph % (Auto) 17.3 % 11/04/22 06:39 Perkins % (Auto) 7.2 % 11/04/22 06:39 Eos % (Auto) 0.2 % 11/04/22 06:39 Baso % (Auto) 0.2 % 11/04/22 06:39 Neut # (Auto) 3.51 K/uL (1.40-6.50) 11/04/22 06:39 Lymph # (Auto) 0.81 K/uL (1.2-3.4) L 11/04/22 06:39 Perkins # (Auto) 0.34 K/uL (0.11-0.59) 11/04/22 06:39 Eos # (Auto) 0.01 K/uL (0-0.50) 11/04/22 06:39 Baso # (Auto) 0.01 K/uL (0-0.2) 11/04/22 06:39 Immature Gran # (Auto) 0.01 K/uL (0.01-0.20) 11/04/22 06:39 Platelet Estimate Decreased (Normal) L 11/04/22 06:39 Sodium 138 mmol/L (136-145) 11/08/22 06:31 Potassium 4.3 mmol/L (3.5-5.1) 11/08/22 06:31 Chloride 101 mmol/L (98-107) 11/08/22 06:31 Carbon Dioxide 33 mmol/L (21-32) H 11/08/22 06:31 Anion Gap 4 (3-11) 11/08/22 06:31 BUN 13 mg/dl (6-23) 11/08/22 06:31 Creatinine 0.63 mg/dl (0.6-1.2) 11/08/22 06:31 Est Cr Clr Drug Dosing 96.6 ml/min 11/08/22 06:31 Est GFR ( Amer) 107.6 ml/min 11/08/22 06:31 Est GFR (Non-Af Amer) 92.8 ml/min 11/08/22 06:31 BUN/Creatinine Ratio 20.6 (10-20) H 11/08/22 06:31 Glucose 106 mg/dl (70-99(Fasting)) H 11/08/22 06:31 POC Glucose 92 mg/dl (70-99) 11/10/22 12:04 Calcium 8.6 mg/dl (8.6-10.3) 11/08/22 06:31 Magnesium 2.0 mg/dl (1.7-2.4) 11/03/22 06:29 25-OH Vitamin D Total 26.5 ng/ml (30-100) L 11/04/22 06:39 SARS-CoV-2, RNA, NAAT NEGATIVE (NEGATIVE) 06/25/23 Unknown Blood Type A Positive 11/02/22 11:49 Antibody Screen NEGATIVE 11/02/22 11:49 Impressions Knee X-Ray 11/02/22 02:51 XR knee LT 1 or 2V routine CLINICAL HISTORY: fall COMPARISON: Left knee radiographs May 29, 2022. FINDINGS: Left knee arthroplasty is noted. There is an acute oblique minimally displaced fracture of the distal metadiaphysis and the metaphysis of the left femur that extends to the lateral femoral condyle. The fracture nearly extends to the femoral component of the left knee arthroplasty. IMPRESSION: Acute oblique minimally displaced distal left femoral fracture which nearly extends to the femoral component of the left knee arthroplasty. ACT 112: Negative or not required by law. Electronically signed by: David Zuleta M.D. 11/02/2022 7:03 AM Tibia/Fibula X-Ray 11/02/22 02:51 XR tibia fibula LT 2V CLINICAL HISTORY: fall COMPARISON: Left knee radiographs May 19, 2022. FINDINGS: Please note that the left knee radiographs will be reported separately. The tibial component of the arthroplasty is partially imaged on this exam. There is no acute fracture within the left tibia or fibula. Posterior plantar calcaneal spurring is incidentally noted. IMPRESSION: No acute fracture within the left tibia or fibula. ACT 112: Negative or not required by law. Electronically signed by: David Zuleta M.D. 11/02/2022 7:01 AM Chest X-Ray 11/02/22 06:16 XR chest 1V portable CLINICAL HISTORY: Preoperative evaluation. Hypertension. COMPARISON STUDY: Chest radiograph September 25, 2021. FINDINGS: Lung volumes are normal. There is no pneumothorax or pleural effusion. Cardiac size is normal. Mediastinal contours are normal. There is no evidence for pulmonary edema. Minimal left basilar opacity favors atelectasis. IMPRESSION: No acute cardiopulmonary findings. ACT 112: Negative or not required by law. Electronically signed by: David Zuleta M.D. 11/02/2022 7:00 AM Femur X-Ray 11/03/22 15:06 LEFT FEMUR 2 VIEWS CLINICAL HISTORY: Postsurgical examination. FINDINGS: AP and crosstable lateral views of the left femur are compared to study dated 11/02/2022. The skeletal structures are osteopenic. There has been buttress plate fixation along the lateral cortex of the distal femoral shaft transfixing a spiral fracture of the distal femoral metadiaphysis. Near-anatomic alignment is restored. The orthopedic hardware appears intact. No new fracture is seen. 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 The visualized left pelvis appears intact. Skin clips, subcutaneous gas, and soft tissue edema in the left thigh are expected postoperative changes. Lumbosacral fusion hardware is partially visualized. An electronic device is partially seen projecting over the left pelvis. IMPRESSION: 1. Postsurgical change from open reduction and fixation of a distal left femoral fracture as above with caodaism of near-anatomic alignment. 2. No new fracture is seen. 3. 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 Electronically signed by: Sav Zuniga M.D. 11/03/2022 3:31 PM Hospital Course (1) Closed left femoral fracture: Plan 67-year-old female admitted for left distal femoral fracture after mechanical fall Left distal femur fracture/periprosthetic fracture around internal prosthetic left knee -imagings reviewed. -Status post open reduction internal fixation left periprosthetic femur fracture by Dr. Duke 11/03/22 -Postop pain controlled. Orthopedics recommends noted as below -- Touch weightbearing left leg, She can work on range of motion of her knee. Range of motion of the knee from 0 to 90 degrees for the first 2 weeks. -- Aspirin twice a day for 6 weeks for DVT prophylaxis -- Continue methadone with as needed oxycodone for pain- 10 pills provided for breakthrough pain. PDMP reviewed. Spoke to pharmacist at [facility]. -- Follow-up with orthopedics in 2 to 3 weeks out from surgery date -- Patient was declined for acute rehab. Has a bed at [facility] for Wed but patient did not want to wait. Seen by PT OT multiple times and cleared for discharge home. Also spoke with family at bedside yesterday. She is comfortable and stable for discharge home. Acute blood loss anemia- likely due to intra op blood loss. Hemoglobin has been stable close to 8. No indication for transfusion. Started on oral iron supplementation. History of migraine on amitriptyline Chronic back pain status post surgery on methadone-PDMP reviewed. Patient is taking methadone 5 mg 3 times daily. Vitamin D deficiency-vitamin D level 26. continue oral vitamin D and calcium supplements Total Time Total Time Spent Total Time Spent (In Minutes): 35 Discharge Plan Discharge Items Patient Disposition: Home - Home Health Services Reason For Visit: TROYAG, L DISTAL FEM FX Discharge Diagnosis: ORIF Left Periprosthetic Femur Fracture Activity: Per Instructions section Activity Comment: Toe-touch weight bearing on left leg for 6 weeks. Knee ROM 0- 90 degrees. Weightbearing: Left toe touch Weightbearing Comment: Knee ROM 0-90 degrees Non-emergency contact: Primary Care Provider and Surgeon Call non-emergency contact if: you have any medication questions, your symptoms worsen, your pain is concerning for you and you have a fever Follow-up/Referrals: Lew Duke MD [Physician] - 11/24/22 11:20 am (2-3 weeks from surgery date) Francisco Salazar MD [Primary Care Provider] - 11/19/22 3:20 pm (hospital follow up) Diet: Regular Addtl Attending Provider Instructions: Aspirin twice daily for DVT prophylaxis for 6 weeks per orthopedics Toe-touch weight bearing left leg for 6 weeks Knee range of motion 0-90 degrees for 1st 2 weeks Routing wound care If increasing pain, redness, swelling or fever, please call your doctor or come back to the emergency Follow up with Dr Duke in the office in 2-3 weeks Follow up with family doctor Pending Studies at Discharge: No Stand-Alone Forms: My Plastyc, Smoking Cessation Medications and DC Order Prescriptions: New sennosides-docusate sodium [Senokot-S] 8.6-50 mg Tablet 1 tab PO BID Qty: 30 0RF ferrous sulfate 325 mg (65 mg iron) Tablet,Delayed Release (Dr/Ec) 325 mg PO QAM Qty: 30 0RF oxycodone 5 mg tablet 5 mg PO BID PRN (Reason: pain) Qty: 10 0RF Continued cyclobenzaprine 10 mg Tablet 10 mg PO TID PRN (Reason: Pain) Rx Instructions: FOR BACK PAIN atorvastatin 80 mg Tablet 80 mg PO PM sumatriptan succinate 100 mg Tablet 100 mg PO UD PRN (Reason: MIGRAINES) methadone 10 mg Tablet 5 mg PO TID tramadol 50 mg Tablet 50 mg PO TID PRN (Reason: Pain) Rx Instructions: BACK PAIN amitriptyline 10 mg Tablet 20 mg PO HS duloxetine [Cymbalta] 60 mg Capsule,Delayed Release(Dr/Ec) 60 mg PO HS cholecalciferol (vitamin D3) [Vitamin D3] 25 mcg (1,000 unit) Tablet,Chewable 25 mcg PO DAILY cyanocobalamin (vitamin B-12) 2,500 mcg Tablet 2,500 mcg PO DAILY calcium-vitamin D3-vitamin K [Viactiv] 650 mg-12.5 mcg-40 mcg Tablet,Chewable 2 tab PO DAILY Rx Instructions: WITH MEALS multivitamin Tablet,Chewable 1 tab PO DAILY gabapentin 300 mg capsule 300 mg PO TID Changed aspirin 81 mg Tablet,Chewable 81 mg PO BID Qty: 60 0RF Discontinued iron 18 mg Tablet 28 mg PO DAILY oxycodone-acetaminophen [Percocet] 5-325 mg tablet 2 tab PO Q4H PRN (Reason: pain) Qty: 24 0RF Rx Instructions: Initial Treatment Discharge Orders: Discharge Order (Routine); Ordered 11/10/22 Ordered By: Leonardo Neff/Other Patient Handouts: Leg and Knee Exercises: Heel Raise, Femur Fx O RIF, Femur ORIF Admission Data Admit Date/Time: 11/02/22 06:11 Attending Provider: Leonardo Johns Admit Provider: Grant Oliver Primary Care Provider: Francisco Salazar Other Providers: [facility] ; [place] ; Debbie,[facility] ; [facility] ; Grant Oliver ; Lew Duke Other Interventions: Discharge Summary Assessment (RN) Last Done: 11/10/22 13:26
== END 2022-11-10 15:15 | disposition home health service (06) | DRG 481 ==
LOC: ED 02:09 → 2N 06:11 → 3E 11-08 18:42